=== PATIENT | male | born 1965 | race African-American/Black ===

== ENCOUNTER 2018-02-14 15:49 | Inpatient (IN) | payer OTHER ==
[2018-02-14 18:16] VITALS: BMI 27.4
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
[2018-02-14] MEDS ORDERED: chlordiazePOXIDE HCL 25 MG CAPSULE PO PRN (21:10)
[2018-02-14] MEDS ORDERED: IBUPROFEN 400 MG TABLET (FP) PO PRN (21:10)
[2018-02-14] MEDS ORDERED: MAG HYDROX/AL HYDROX/SIMETH 30 ML UNIT-DOSE CUP PO PRN (21:10)
[2018-02-14] MEDS ORDERED: MAGNESIUM HYDROX 2400MG/30ML ORAL SUSPENSION 30 ML CUP PO PRN (21:10)
[2018-02-14] MEDS ORDERED: ACETAMINOPHEN 325 MG TABLET (FP) PO PRN (21:10)
[2018-02-14] MEDS ORDERED: P-EPHED 60MG/TRIPROLIDI 2.5MG TABLET PO PRN (21:10)
[2018-02-14] MEDS ORDERED: MAGNESIUM CITRATE 300 ML BOTTLE PO PRN (21:10)
[2018-02-14] MEDS ORDERED: chlordiazePOXIDE HCL 25 MG CAPSULE PO ONE (21:10)
[2018-02-14] MEDS ORDERED: guaiFENesin/D-METHORPHAN HB 10 ML UNIT-DOSE CUPS PO PRN (21:10)
[2018-02-14] MEDS ORDERED: LOPERAMIDE HCL 2 MG CAPSULE PO PRN (21:10)
[2018-02-14] MEDS ORDERED: MENTHOL/PHENOL 1 EACH UD MM PRN (21:10)
[2018-02-14] MEDS ORDERED: MELATONIN 5 MG TABLETS PO PRN (22:00)
[2018-02-14] MEDS: THIAMINE HCL 100 MG TABLET (FP) PO SCH (22:23)
[2018-02-14] MEDS: chlordiazePOXIDE HCL 25 MG CAPSULE PO SCH (22:24)
[2018-02-15] MEDS: chlordiazePOXIDE HCL 25 MG CAPSULE PO SCH ×4 (06:06→22:40)
[2018-02-15 10:24] LABS: HEMATOCRIT 41.3 % (35.4-49); HEMOGLOBIN 13.1 GM/dL (11.7-16.9); MCHC 31.9 g/dl (32.0-35.9); MEAN CELL VOLUME 81.5 fl (80-96); MEAN PLT VOLUME 8.5 fl (7.5-11.1); PLATELET COUNT 244 K/MM3 (134-434); RBC 5.06 M/mm3 (4.00-5.60); RDW 15.4 % (11.9-15.9); WHITE BLOOD COUNT 4.2 K/mm3 (4.0-10.0)
[2018-02-15] MEDS: PRENATAL VITAMINS W/ FOLIC ACID TABLET (FP) PO SCH (10:42)
[2018-02-15] MEDS: HYDROCHLOROTHIAZIDE 12.5 MG CAPSULE (FP) PO SCH (10:42)
[2018-02-15 11:29] LABS: ALBUMIN 3.5 g/dl (3.4-5.0); ALK PHOS 98 U/L (45-117); ANION GAP 4 MMOL/L (8-16); BILIRUBIN,TOTAL 0.6 mg/dL (0.2-1.0); BLOOD UREA NITROGEN 25 mg/dL (7-18); CALCIUM 8.8 mg/dL (8.5-10.1); CHLORIDE 105 mmol/L (98-107); CO2 31 mmol/L (21-32); CREATININE 1.2 mg/dL (0.7-1.3); GLUCOSE,RANDOM 95 mg/dL (74-106); POTASSIUM 4.4 mmol/L (3.5-5.1); SGOT/AST 16 U/L (15-37); SGPT/ALT 26 U/L (12-78); SODIUM 140 mmol/L (136-145); TOT PROT 6.8 g/dl (6.4-8.2)
[2018-02-15] MEDS ORDERED: PNEUMOC 13-VAL CONJ-DIP CRM/PF 0.5 ML DISP.SYRIN IM ONE (12:00)
[2018-02-15] MEDS ORDERED: PNEUMOCOCCAL 23 VACCINE 0.5 ML VIAL IM ONE (12:00)
--- NOTE | 2018-02-15 13:01 | PN ---
[facility] CIWA - CIWA Score Nausea/Vomitin-No Nausea/No Vomiting Muscle Tremors: 4-Moderate,w/Arms Extend Anxiety: 3 Agitation: 3 Paroxysmal Sweats: 1-Minimal Palms Moist Orientation: 0-Oriented Tacttile Disturbances: 1-Very Mild Itch/Numbness Auditory Disturbances: 0-None Visual Disturbances: 0-None Headache: 0-None Present CIWA-Ar Total Score: 12 BHS Progress Note (SOAP) Subjective: tremor sweat anxiety restlessness Objective: 02/15/18 12:59 Vital Signs Temperature 97.0 F L 02/15/18 09:29 Pulse Rate 79 02/15/18 09:29 Respiratory Rate 18 02/15/18 09:29 Blood Pressure 164/98 02/15/18 09:29 O2 Sat by Pulse Oximetry (%) Laboratory Last Values WBC 4.2 K/mm3 (4.0-10.0) 02/15/18 07:00 RBC 5.06 M/mm3 (4.00-5.60) 02/15/18 07:00 Hgb 13.1 GM/dL (11.7-16.9) 02/15/18 07:00 Hct 41.3 % (35.4-49) 02/15/18 07:00 MCV 81.5 fl (80-96) 02/15/18 07:00 MCH 26.0 pg (25.7-33.7) 02/15/18 07:00 MCHC 31.9 g/dl (32.0-35.9) L 02/15/18 07:00 RDW 15.4 % (11.9-15.9) 02/15/18 07:00 Plt Count 244 K/MM3 (134-434) 02/15/18 07:00 MPV 8.5 fl (7.5-11.1) 02/15/18 07:00 Sodium 140 mmol/L (136-145) 02/15/18 07:00 Potassium 4.4 mmol/L (3.5-5.1) 02/15/18 07:00 Chloride 105 mmol/L (98-107) 02/15/18 07:00 Carbon Dioxide 31 mmol/L (21-32) 02/15/18 07:00 Anion Gap 4 MMOL/L (8-16) L 02/15/18 07:00 BUN 25 mg/dL (7-18) H 02/15/18 07:00 Creatinine 1.2 mg/dL (0.7-1.3) 02/15/18 07:00 Creat Clearance w eGFR > 60 (>60) 02/15/18 07:00 Random Glucose 95 mg/dL (74-106) 02/15/18 07:00 Calcium 8.8 mg/dL (8.5-10.1) 02/15/18 07:00 Total Bilirubin 0.6 mg/dL (0.2-1.0) 02/15/18 07:00 AST 16 U/L (15-37) 02/15/18 07:00 ALT 26 U/L (12-78) 02/15/18 07:00 Alkaline Phosphatase 98 U/L (45-117) 02/15/18 07:00 Total Protein 6.8 g/dl (6.4-8.2) 02/15/18 07:00 Albumin 3.5 g/dl (3.4-5.0) 02/15/18 07:00 lab noted Assessment: 02/15/18 13:01 withdrawal sx Plan: continue detox
--- NOTE | 2018-02-15 17:21 | EKG ---
Test Reason : Blood Pressure : / mmHG Vent. Rate : 063 BPM Atrial Rate : 063 BPM P-R Int : 124 ms QRS Dur : 092 ms QT Int : 416 ms P-R-T Axes : 065 -19 052 degrees QTc Int : 425 ms SINUS RHYTHM WITH MARKED SINUS ARRHYTHMIA MINIMAL VOLTAGE CRITERIA FOR LVH, MAY BE NORMAL VARIANT BORDERLINE ECG Confirmed by MD KEHINDE, ANKUSH ([id number]) on 02/15/2018 5:21:46 PM Referred By: Confirmed By:ANKUSH BUSBY MD
[2018-02-15] MEDS: THIAMINE HCL 100 MG TABLET (FP) PO SCH (22:40)
[2018-02-16] MEDS: chlordiazePOXIDE HCL 25 MG CAPSULE PO SCH ×3 (05:54→17:46)
[2018-02-16] MEDS: HYDROCHLOROTHIAZIDE 12.5 MG CAPSULE (FP) PO SCH (10:19)
[2018-02-16] MEDS: PRENATAL VITAMINS W/ FOLIC ACID TABLET (FP) PO SCH (10:19)
--- NOTE | 2018-02-16 12:15 | PN ---
S CIWA - CIWA Score Nausea/Vomitin-Mild Nausea/No Vomiting Muscle Tremors: 3 Anxiety: 4-Mod. Anxious/Guarded Agitation: 3 Paroxysmal Sweats: 1-Minimal Palms Moist Orientation: 0-Oriented Tacttile Disturbances: 0-None Auditory Disturbances: 0-None Visual Disturbances: 0-None Headache: 0-None Present CIWA-Ar Total Score: 12 BHS Progress Note (SOAP) Subjective: anxiety less tremor but sweat and trouble sleep at night Objective: 02/16/18 12:14 Vital Signs Temperature 97.2 F L 02/16/18 09:23 Pulse Rate 102 H 02/16/18 09:23 Respiratory Rate 18 02/16/18 09:23 Blood Pressure 137/91 02/16/18 09:23 O2 Sat by Pulse Oximetry (%) Laboratory Last Values WBC 4.2 K/mm3 (4.0-10.0) 02/15/18 07:00 RBC 5.06 M/mm3 (4.00-5.60) 02/15/18 07:00 Hgb 13.1 GM/dL (11.7-16.9) 02/15/18 07:00 Hct 41.3 % (35.4-49) 02/15/18 07:00 MCV 81.5 fl (80-96) 02/15/18 07:00 MCH 26.0 pg (25.7-33.7) 02/15/18 07:00 MCHC 31.9 g/dl (32.0-35.9) L 02/15/18 07:00 RDW 15.4 % (11.9-15.9) 02/15/18 07:00 Plt Count 244 K/MM3 (134-434) 02/15/18 07:00 MPV 8.5 fl (7.5-11.1) 02/15/18 07:00 Sodium 140 mmol/L (136-145) 02/15/18 07:00 Potassium 4.4 mmol/L (3.5-5.1) 02/15/18 07:00 Chloride 105 mmol/L (98-107) 02/15/18 07:00 Carbon Dioxide 31 mmol/L (21-32) 02/15/18 07:00 Anion Gap 4 MMOL/L (8-16) L 02/15/18 07:00 BUN 25 mg/dL (7-18) H 02/15/18 07:00 Creatinine 1.2 mg/dL (0.7-1.3) 02/15/18 07:00 Creat Clearance w eGFR > 60 (>60) 02/15/18 07:00 Random Glucose 95 mg/dL (74-106) 02/15/18 07:00 Calcium 8.8 mg/dL (8.5-10.1) 02/15/18 07:00 Total Bilirubin 0.6 mg/dL (0.2-1.0) 02/15/18 07:00 AST 16 U/L (15-37) 02/15/18 07:00 ALT 26 U/L (12-78) 02/15/18 07:00 Alkaline Phosphatase 98 U/L (45-117) 02/15/18 07:00 Total Protein 6.8 g/dl (6.4-8.2) 02/15/18 07:00 Albumin 3.5 g/dl (3.4-5.0) 02/15/18 07:00 RPR Titer Nonreactive (NONREACTIVE) 02/15/18 07:00 HIV 1&2 Antibody Screen Negative 02/15/18 07:00 HIV P24 Antigen Negative 02/15/18 07:00 lab noted Assessment: 02/16/18 12:15 withdrawal sx Plan: continue detox
[2018-02-16] MEDS: THIAMINE HCL 100 MG TABLET (FP) PO SCH (22:19)
[2018-02-16] MEDS: chlordiazePOXIDE 5 MG CAPSULE PO SCH (22:20)
[2018-02-17] MEDS: chlordiazePOXIDE 5 MG CAPSULE PO SCH ×3 (05:45→19:08)
[2018-02-17] MEDS: HYDROCHLOROTHIAZIDE 12.5 MG CAPSULE (FP) PO SCH (10:32)
[2018-02-17] MEDS: PRENATAL VITAMINS W/ FOLIC ACID TABLET (FP) PO SCH (10:32)
--- NOTE | 2018-02-17 14:41 | PN ---
BHS Progress Note (SOAP) Subjective: feeling better no tremor less sweat sleep better at night social with peers in day room and hallway Objective: 02/17/18 14:41 Vital Signs Temperature 97.5 F L 02/17/18 14:01 Pulse Rate 98 H 02/17/18 14:01 Respiratory Rate 18 02/17/18 14:01 Blood Pressure 119/93 02/17/18 14:01 O2 Sat by Pulse Oximetry (%) Laboratory Last Values WBC 4.2 K/mm3 (4.0-10.0) 02/15/18 07:00 RBC 5.06 M/mm3 (4.00-5.60) 02/15/18 07:00 Hgb 13.1 GM/dL (11.7-16.9) 02/15/18 07:00 Hct 41.3 % (35.4-49) 02/15/18 07:00 MCV 81.5 fl (80-96) 02/15/18 07:00 MCH 26.0 pg (25.7-33.7) 02/15/18 07:00 MCHC 31.9 g/dl (32.0-35.9) L 02/15/18 07:00 RDW 15.4 % (11.9-15.9) 02/15/18 07:00 Plt Count 244 K/MM3 (134-434) 02/15/18 07:00 MPV 8.5 fl (7.5-11.1) 02/15/18 07:00 Sodium 140 mmol/L (136-145) 02/15/18 07:00 Potassium 4.4 mmol/L (3.5-5.1) 02/15/18 07:00 Chloride 105 mmol/L (98-107) 02/15/18 07:00 Carbon Dioxide 31 mmol/L (21-32) 02/15/18 07:00 Anion Gap 4 MMOL/L (8-16) L 02/15/18 07:00 BUN 25 mg/dL (7-18) H 02/15/18 07:00 Creatinine 1.2 mg/dL (0.7-1.3) 02/15/18 07:00 Creat Clearance w eGFR > 60 (>60) 02/15/18 07:00 Random Glucose 95 mg/dL (74-106) 02/15/18 07:00 Calcium 8.8 mg/dL (8.5-10.1) 02/15/18 07:00 Total Bilirubin 0.6 mg/dL (0.2-1.0) 02/15/18 07:00 AST 16 U/L (15-37) 02/15/18 07:00 ALT 26 U/L (12-78) 02/15/18 07:00 Alkaline Phosphatase 98 U/L (45-117) 02/15/18 07:00 Total Protein 6.8 g/dl (6.4-8.2) 02/15/18 07:00 Albumin 3.5 g/dl (3.4-5.0) 02/15/18 07:00 RPR Titer Nonreactive (NONREACTIVE) 02/15/18 07:00 HIV 1&2 Antibody Screen Negative 02/15/18 07:00 HIV P24 Antigen Negative 02/15/18 07:00 lab noted Assessment: 02/17/18 14:41 mild withdrawal sx Plan: medically supervised detox
[2018-02-17] MEDS: chlordiazePOXIDE HCL 10 MG CAPSULE PO SCH (23:06)
[2018-02-17] MEDS: THIAMINE HCL 100 MG TABLET (FP) PO SCH (23:06)
[2018-02-18] MEDS: chlordiazePOXIDE HCL 10 MG CAPSULE PO SCH (05:24)
--- NOTE | 2018-02-18 08:54 | DS ---
[facility] Detox Discharge Summary Admission Date: 02/14/18 Discharge Date: 02/18/18 - History Present History: Alcohol Dependence, Cannabis Dependence, Cocaine Dependence - Physical Exam Results Vital Signs: Vital Signs Temperature 95.9 F L 02/18/18 06:22 Pulse Rate 80 02/18/18 06:22 Respiratory Rate 18 02/18/18 06:22 Blood Pressure 127/78 02/18/18 06:22 O2 Sat by Pulse Oximetry (%) - Treatment Hospital Course: Detox Protocol Followed, Detoxed Safely, Responded well, Discharged Condition Good, Rehab Referral Accepted - Medication Discharge Medications: Ambulatory Orders Hydrochlorothiazide [Hctz -] 12.5 mg PO DAILY 02/14/18 - Diagnosis (1) Alcohol dependence with withdrawal Current Visit: Yes Status: Chronic Qualifiers: Complication of substance-induced condition: uncomplicated Qualified Code(s ): F10.230 - Alcohol dependence with withdrawal, uncomplicated (2) Cocaine dependence Current Visit: Yes Status: Acute Qualifiers: Substance use status: uncomplicated Qualified Code(s): F14.20 - Cocaine dependence, uncomplicated (3) Marijuana dependence Current Visit: Yes Status: Chronic (4) GERD (gastroesophageal reflux disease) Current Visit: Yes Status: Chronic Qualifiers: Esophagitis presence: without esophagitis Qualified Code(s): K21.9 - Gastro -esophageal reflux disease without esophagitis (5) Glaucoma, right eye Current Visit: Yes Status: Chronic Qualifiers: Glaucoma type: unspecified Qualified Code(s): H40.9 - Unspecified glaucoma (6) Hypertension Current Visit: Yes Status: Chronic Qualifiers: Hypertension type: essential hypertension Qualified Code(s): I10 - Essential (primary) hypertension - AMA Did Patient Leave Against Medical Advice: No
[2018-02-18] MEDS: HYDROCHLOROTHIAZIDE 12.5 MG CAPSULE (FP) PO SCH (09:23)
[2018-02-18] MEDS: PRENATAL VITAMINS W/ FOLIC ACID TABLET (FP) PO SCH (09:23)
[2018-02-18 10:00] VITALS: BP 155/93; PULSE 110; TEMP 97.7
[2018-02-18 11:21] LABS: URINE APPEARANCE CLEAR; URINE BILIRUBIN NEGATIVE (<2.0 mg/dL); URINE COLOR LTYELLOW; URINE GLUCOSE (UA) NEGATIVE (NEGATIVE); URINE KETONE NEGATIVE (NEGATIVE); URINE LEUK ESTERASE NEGATIVE (NEGATIVE); URINE NITRITE NEGATIVE (NEGATIVE); URINE PROTEIN NEGATIVE (NEGATIVE); URINE UROBILINOGEN NEGATIVE mg/dL (0.2-1.0)
== END 2018-02-18 09:29 | disposition home or self-care (01) | DRG 897 ==
LOC: YASAS 15:49 → Y6N 21:00
PROC: HZ2ZZZZ Detoxification Services for Substance Abuse Treatment (ICD-10-PCS; principal; 2018-02-14)
DX: F10.230 Alcohol dependence with withdrawal, uncomplicated (principal); F14.20 Cocaine dependence, uncomplicated; F12.20 Cannabis dependence, uncomplicated; I10 Essential (primary) hypertension; K21.9 Gastro-esophageal reflux disease without esophagitis; H40.9 Unspecified glaucoma
CPT/HCPCS: 36415; 80053; 81003; 85027; 86593; 87389; 90732; 93005; 93010; G0009

== ENCOUNTER 2018-03-27 10:48 | Inpatient (IN) | payer OTHER ==
[2018-03-27 11:35] VITALS: BMI 27.8
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
[2018-03-27] MEDS ORDERED: MAGNESIUM HYDROX 2400MG/30ML ORAL SUSPENSION 30 ML CUP PO PRN (12:37)
[2018-03-27] MEDS ORDERED: MAG HYDROX/AL HYDROX/SIMETH 30 ML UNIT-DOSE CUP PO PRN (12:37)
[2018-03-27] MEDS ORDERED: chlordiazePOXIDE HCL 25 MG CAPSULE PO PRN (12:37)
[2018-03-27] MEDS ORDERED: P-EPHED 60MG/TRIPROLIDI 2.5MG TABLET PO PRN (12:37)
[2018-03-27] MEDS ORDERED: MENTHOL/PHENOL 1 EACH UD MM PRN (12:37)
[2018-03-27] MEDS ORDERED: MAGNESIUM CITRATE 300 ML BOTTLE PO PRN (12:37)
[2018-03-27] MEDS ORDERED: LOPERAMIDE HCL 2 MG CAPSULE PO PRN (12:37)
[2018-03-27] MEDS: HYDROCHLOROTHIAZIDE 12.5 MG CAPSULE (FP) PO SCH (15:16)
[2018-03-27] MEDS: chlordiazePOXIDE HCL 25 MG CAPSULE PO SCH ×2 (17:24→22:28)
[2018-03-27 17:47] LABS: URINE APPEARANCE CLEAR; URINE BILIRUBIN NEGATIVE (<2.0 mg/dL); URINE COLOR YELLOW; URINE GLUCOSE (UA) NEGATIVE (NEGATIVE); URINE KETONE NEGATIVE (NEGATIVE); URINE LEUK ESTERASE NEGATIVE (NEGATIVE); URINE NITRITE NEGATIVE (NEGATIVE); URINE PROTEIN NEGATIVE (NEGATIVE); URINE UROBILINOGEN NEGATIVE mg/dL (0.2-1.0)
[2018-03-27] MEDS: THIAMINE HCL 100 MG TABLET (FP) PO SCH (22:28)
[2018-03-28] MEDS: chlordiazePOXIDE HCL 25 MG CAPSULE PO SCH ×4 (05:21→22:19)
--- NOTE | 2018-03-28 09:04 | CONSULT ---
[facility] Psychiatric Consult - Data Date of interview: 03/28/18 Admission source: [facility] Identifying data: This is a 52 years old male, single, living with family, inemployed, with no income, with no psychiatric hospitalization history, with a long hx of alcohol and crack/cocaine addiction presents today for detox. Denies suicidal and homicidal history Substance Abuse History: Smoking history: Smoker current status UNK (states he "stopped yesterday"). Have you smoked in the past 12 months: Yes. Hx Chewing Tobacco Use: No. Initiated information on smoking cessation: Yes. 'Breaking Loose' booklet given: 03/27/18. - Substance & Tx. History. Hx Alcohol Use: Yes. Hx Substance Use: Yes. Substance Use Type: Cocaine (crack). Hx Substance Use Treatment: Yes. - Substances Abused. Alcohol. Route: Oral. Frequency: Daily. Amount used: 1/2 pint Vodka; 6 pack (24 0z). Age of first use: 18. Date of Last Use: 03/26/18. Crack. Route: Smoking. Frequency: Daily. Amount used: $75 bag. Age of first use: 22. Date of Last Use: . Marijuana/Hashish. Route: Smoking. Frequency: Daily. Amount used: $ 50 - $100. Age of first use: 11. Date of Last Use: 03/26/18 Medical History: Patient reports heart pulcation history, denies history of hopitalizations and history of taking medications Psychiatric History: Patient rep[orts history of anxiety and depression,k denies psychiatric hospitalization history, reports no meducaions taking prior to admission. Patient denies suicidal and homicidal hiustory as well. Physical/Sexual Abuse/Trauma History: Denies Additional Comment: Observation. Detox Unit Care Protocol. Mental Status Exam - Mental Status Exam Alert and Oriented to: Person Cognitive Function: Fair Patient Appearance: Unkempt Mood: Sad Affect: Flat Patient Behavior: Sedated Speech Pattern: Delayed Voice Loudness: Mildly Soft/Quiet Thought Process: Circumstantial Thought Disorder: Being Controlled Hallucinations: Denies Suicidal Ideation: Denies Homicidal Ideation: Denies Insight/Judgement: Fair Sleep: Difficulty falling asleep Appetite: Weight loss Muscle strength/Tone: Mild Hypotonicity Gait/Station: Shuffling Additional Comments: Observation. Detox Unit Care Protocol. Psychiatric Findings - Problem List ([place] 1, 2,3) (1) Drug-induced mood disorder Current Visit: Yes Status: Acute (2) Alcohol dependence with withdrawal Current Visit: Yes Status: Acute Qualifiers: Complication of substance-induced condition: uncomplicated Qualified Code(s ): F10.230 - Alcohol dependence with withdrawal, uncomplicated (3) Cocaine dependence Current Visit: Yes Status: Chronic Qualifiers: Substance use status: uncomplicated Qualified Code(s): F14.20 - Cocaine dependence, uncomplicated (4) Marijuana dependence Current Visit: Yes Status: Chronic - Initial Treatment Plan Initial Treatment Plan: Observation. Detox Unit Care Protocol.
[2018-03-28] MEDS: PRENATAL VITAMINS W/ FOLIC ACID TABLET (FP) PO SCH (10:13)
[2018-03-28] MEDS: HYDROCHLOROTHIAZIDE 12.5 MG CAPSULE (FP) PO SCH (10:13)
--- NOTE | 2018-03-28 11:28 | PN ---
S CIWA - CIWA Score Nausea/Vomitin Muscle Tremors: 4-Moderate,w/Arms Extend Anxiety: 4-Mod. Anxious/Guarded Agitation: 4-Moderately Restless Paroxysmal Sweats: 3 Orientation: 0-Oriented Tacttile Disturbances: 0-None Auditory Disturbances: 0-None Visual Disturbances: 0-None Headache: 0-None Present CIWA-Ar Total Score: 18 [facility] Progress Note (SOAP) Subjective: Constipation (hard bm yesterday), headache. Patient informed to request medication from nurse for constipation. Objective: 03/28/18 11:25 Last Vital Signs Temp Pulse Resp BP Pulse Ox 97.8 F 93 H 20 138/98 03/28/18 09:05 03/28/18 09:05 03/28/18 09:05 03/28/18 09:05 Laboratory Tests 03/27/18 15:33 Urine Color Yellow Urine Appearance Clear Urine pH 5.0 Ur Specific [place] 1.021 Urine Protein Negative Urine Glucose (UA) Negative Urine Ketones Negative Urine Blood Negative Urine Nitrite Negative Urine Bilirubin Negative Urine Urobilinogen Negative Ur Leukocyte Esterase Negative UA noted; CBC, CMP, RPR result pending Assessment: 03/28/18 11:25 Withdrawal symptoms Plan: Continue detox Encouraged PO water hydration
[2018-03-28 11:29] LABS: HEMATOCRIT 41.3 % (35.4-49); HEMOGLOBIN 13.4 GM/dL (11.7-16.9); MCH 26.4 pg (25.7-33.7); MCHC 32.4 g/dl (32.0-35.9); MEAN CELL VOLUME 81.3 fl (80-96); MEAN PLT VOLUME 8.9 fl (7.5-11.1); PLATELET COUNT 251 K/MM3 (134-434); RBC 5.08 M/mm3 (4.00-5.60); WHITE BLOOD COUNT 4.8 K/mm3 (4.0-10.0)
[2018-03-28 11:38] LABS: ALBUMIN 3.6 g/dl (3.4-5.0); ALK PHOS 104 U/L (45-117); ANION GAP 6 MMOL/L (8-16); BILIRUBIN,TOTAL 1.2 mg/dL (0.2-1); BLOOD UREA NITROGEN 18 mg/dL (7-18); CALCIUM 8.6 mg/dL (8.5-10.1); CHLORIDE 104 mmol/L (98-107); CO2 30 mmol/L (21-32); GLUCOSE,RANDOM 76 mg/dL (74-106); POTASSIUM 4.2 mmol/L (3.5-5.1); SGOT/AST 17 U/L (15-37); SGPT/ALT 32 U/L (13-61); SODIUM 140 mmol/L (136-145); TOT PROT 6.9 g/dl (6.4-8.2)
[2018-03-28] MEDS ORDERED: FLU VACCINE QUAD 60 MCG/0.5 ML (MDV 18-19) IM ONE (12:00)
[2018-03-28] MEDS ORDERED: PNEUMOC 13-VAL CONJ-DIP CRM/PF 0.5 ML DISP.SYRIN IM ONE (12:00)
--- NOTE | 2018-03-28 21:33 | EKG ---
Test Reason : Blood Pressure : / mmHG Vent. Rate : 077 BPM Atrial Rate : 077 BPM P-R Int : 122 ms QRS Dur : 114 ms QT Int : 408 ms P-R-T Axes : 057 -22 030 degrees QTc Int : 461 ms NORMAL SINUS RHYTHM WITH SINUS ARRHYTHMIA INCOMPLETE RIGHT BUNDLE BRANCH BLOCK MODERATE VOLTAGE CRITERIA FOR LVH, MAY BE NORMAL VARIANT BORDERLINE ECG WHEN COMPARED WITH ECG OF 14-FEB-2018 21:30, QRS DURATION HAS INCREASED Confirmed by MARYA ALEX MD ([id number]) on 03/28/2018 9:32:50 PM Referred By: Alda Colmenares Confirmed By:MARYA ALEX MD
[2018-03-28] MEDS: THIAMINE HCL 100 MG TABLET (FP) PO SCH (22:19)
[2018-03-29] MEDS: chlordiazePOXIDE HCL 25 MG CAPSULE PO SCH ×2 (05:40→10:08)
[2018-03-29] MEDS: HYDROCHLOROTHIAZIDE 12.5 MG CAPSULE (FP) PO SCH (10:07)
[2018-03-29] MEDS: PRENATAL VITAMINS W/ FOLIC ACID TABLET (FP) PO SCH (10:08)
--- NOTE | 2018-03-29 13:58 | PN ---
[facility] CIWA - CIWA Score Nausea/Vomitin-Mild Nausea/No Vomiting Muscle Tremors: 3 Anxiety: 3 Agitation: 3 Paroxysmal Sweats: 2 Orientation: 0-Oriented Tacttile Disturbances: 0-None Auditory Disturbances: 0-None Visual Disturbances: 0-None Headache: 1-Very Mild CIWA-Ar Total Score: 13 S Progress Note (SOAP) Subjective: Sweating, anxious, interrupted sleep Objective: 03/29/18 13:55 Last Vital Signs Temp Pulse Resp BP Pulse Ox 98.6 F 116 H 18 125/84 03/29/18 13:17 03/29/18 13:17 03/29/18 13:17 03/29/18 13:17 Laboratory Tests 03/27/18 03/28/18 03/28/18 15:33 07:00 07:00 WBC 4.8 RBC 5.08 Hgb 13.4 Hct 41.3 MCV 81.3 MCH 26.4 MCHC 32.4 RDW 16.0 H Plt Count 251 MPV 8.9 Sodium 140 Potassium 4.2 Chloride 104 Carbon Dioxide 30 Anion Gap 6 L BUN 18 Creatinine 1.0 Creat Clearance w eGFR > 60 Random Glucose 76 Calcium 8.6 Total Bilirubin 1.2 H AST 17 ALT 32 Alkaline Phosphatase 104 Total Protein 6.9 Albumin 3.6 Urine Color Yellow Urine Appearance Clear Urine pH 5.0 Ur Specific [place] 1.021 Urine Protein Negative Urine Glucose (UA) Negative Urine Ketones Negative Urine Blood Negative Urine Nitrite Negative Urine Bilirubin Negative Urine Urobilinogen Negative Ur Leukocyte Esterase Negative RPR Titer 03/28/18 07:00 WBC RBC Hgb Hct MCV MCH MCHC RDW Plt Count MPV Sodium Potassium Chloride Carbon Dioxide Anion Gap BUN Creatinine Creat Clearance w eGFR Random Glucose Calcium Total Bilirubin AST ALT Alkaline Phosphatase Total Protein Albumin Urine Color Urine Appearance Urine pH Ur Specific [place] Urine Protein Urine Glucose (UA) Urine Ketones Urine Blood Urine Nitrite Urine Bilirubin Urine Urobilinogen Ur Leukocyte Esterase RPR Titer Nonreactive Labs reviewed Assessment: 03/29/18 13:54 Withdrawal symptoms Plan: Continue detox Encouraged PO water intake for hydration
[2018-03-29] MEDS: chlordiazePOXIDE 5 MG CAPSULE PO SCH ×2 (16:57→22:24)
[2018-03-29] MEDS: ACETAMINOPHEN 325 MG TABLET (FP) PO PRN (16:57)
[2018-03-29] MEDS: THIAMINE HCL 100 MG TABLET (FP) PO SCH (22:24)
[2018-03-30] MEDS: chlordiazePOXIDE 5 MG CAPSULE PO SCH ×2 (05:13→10:08)
[2018-03-30] MEDS: ACETAMINOPHEN 325 MG TABLET (FP) PO PRN ×2 (06:16→20:06)
[2018-03-30] MEDS: HYDROCHLOROTHIAZIDE 12.5 MG CAPSULE (FP) PO SCH (10:09)
[2018-03-30] MEDS: PRENATAL VITAMINS W/ FOLIC ACID TABLET (FP) PO SCH (10:09)
--- NOTE | 2018-03-30 12:42 | PN ---
BHS Progress Note (SOAP) Subjective: Interrupted sleep, sweating Objective: 03/30/18 12:39 Last Vital Signs Temp Pulse Resp BP Pulse Ox 96.1 F L 96 H 17 127/89 03/30/18 09:29 03/30/18 09:29 03/30/18 09:29 03/30/18 09:29 Laboratory Tests 03/27/18 03/28/18 03/28/18 15:33 07:00 07:00 WBC 4.8 RBC 5.08 Hgb 13.4 Hct 41.3 MCV 81.3 MCH 26.4 MCHC 32.4 RDW 16.0 H Plt Count 251 MPV 8.9 Sodium 140 Potassium 4.2 Chloride 104 Carbon Dioxide 30 Anion Gap 6 L BUN 18 Creatinine 1.0 Creat Clearance w eGFR > 60 Random Glucose 76 Calcium 8.6 Total Bilirubin 1.2 H AST 17 ALT 32 Alkaline Phosphatase 104 Total Protein 6.9 Albumin 3.6 Urine Color Yellow Urine Appearance Clear Urine pH 5.0 Ur Specific [place] 1.021 Urine Protein Negative Urine Glucose (UA) Negative Urine Ketones Negative Urine Blood Negative Urine Nitrite Negative Urine Bilirubin Negative Urine Urobilinogen Negative Ur Leukocyte Esterase Negative RPR Titer 03/28/18 07:00 WBC RBC Hgb Hct MCV MCH MCHC RDW Plt Count MPV Sodium Potassium Chloride Carbon Dioxide Anion Gap BUN Creatinine Creat Clearance w eGFR Random Glucose Calcium Total Bilirubin AST ALT Alkaline Phosphatase Total Protein Albumin Urine Color Urine Appearance Urine pH Ur Specific [place] Urine Protein Urine Glucose (UA) Urine Ketones Urine Blood Urine Nitrite Urine Bilirubin Urine Urobilinogen Ur Leukocyte Esterase RPR Titer Nonreactive Labs reviewed Assessment: 03/30/18 12:39 Withdrawal symptoms Plan: Labs reviewed Encouraged PO water intake
[2018-03-30] MEDS: chlordiazePOXIDE HCL 10 MG CAPSULE PO SCH ×2 (17:10→22:23)
[2018-03-30] MEDS: THIAMINE HCL 100 MG TABLET (FP) PO SCH (22:23)
[2018-03-31] MEDS: chlordiazePOXIDE HCL 10 MG CAPSULE PO SCH ×2 (05:34→10:17)
[2018-03-31] MEDS: PRENATAL VITAMINS W/ FOLIC ACID TABLET (FP) PO SCH (10:17)
[2018-03-31] MEDS: HYDROCHLOROTHIAZIDE 12.5 MG CAPSULE (FP) PO SCH (10:17)
--- NOTE | 2018-03-31 12:49 | PN ---
BHS Progress Note (SOAP) Subjective: Sweating, interrupted sleep Objective: 03/31/18 12:47 Last Vital Signs Temp Pulse Resp BP Pulse Ox 97.4 F L 109 H 20 108/83 03/31/18 09:08 03/31/18 09:08 03/31/18 09:08 03/31/18 09:08 Laboratory Tests 03/27/18 03/28/18 03/28/18 15:33 07:00 07:00 WBC 4.8 RBC 5.08 Hgb 13.4 Hct 41.3 MCV 81.3 MCH 26.4 MCHC 32.4 RDW 16.0 H Plt Count 251 MPV 8.9 Sodium 140 Potassium 4.2 Chloride 104 Carbon Dioxide 30 Anion Gap 6 L BUN 18 Creatinine 1.0 Creat Clearance w eGFR > 60 Random Glucose 76 Calcium 8.6 Total Bilirubin 1.2 H AST 17 ALT 32 Alkaline Phosphatase 104 Total Protein 6.9 Albumin 3.6 Urine Color Yellow Urine Appearance Clear Urine pH 5.0 Ur Specific [place] 1.021 Urine Protein Negative Urine Glucose (UA) Negative Urine Ketones Negative Urine Blood Negative Urine Nitrite Negative Urine Bilirubin Negative Urine Urobilinogen Negative Ur Leukocyte Esterase Negative RPR Titer 03/28/18 07:00 WBC RBC Hgb Hct MCV MCH MCHC RDW Plt Count MPV Sodium Potassium Chloride Carbon Dioxide Anion Gap BUN Creatinine Creat Clearance w eGFR Random Glucose Calcium Total Bilirubin AST ALT Alkaline Phosphatase Total Protein Albumin Urine Color Urine Appearance Urine pH Ur Specific [place] Urine Protein Urine Glucose (UA) Urine Ketones Urine Blood Urine Nitrite Urine Bilirubin Urine Urobilinogen Ur Leukocyte Esterase RPR Titer Nonreactive Labs reviewed Assessment: 03/31/18 12:48 Withdrawal symptoms Plan: Continue detox Encouraged PO water intake Patient can be discharged Wednesday or Wednesday
[2018-03-31] MEDS: THIAMINE HCL 100 MG TABLET (FP) PO SCH (22:24)
[2018-03-31] MEDS: MELATONIN 5 MG TABLETS PO PRN (22:25)
[2018-03-31] MEDS: guaiFENesin/D-METHORPHAN HB 10 ML UNIT-DOSE CUPS PO PRN (22:25)
[2018-04-01] MEDS: HYDROCHLOROTHIAZIDE 12.5 MG CAPSULE (FP) PO SCH (10:10)
[2018-04-01] MEDS: PRENATAL VITAMINS W/ FOLIC ACID TABLET (FP) PO SCH (10:10)
--- NOTE | 2018-04-01 11:30 | DS ---
[facility] Detox Discharge Summary Admission Date: 03/27/18 Discharge Date: 04/01/18 - History Present History: Alcohol Dependence, Cannabis Dependence, Cocaine Dependence Pertinent Past History: Alcohol dependence Cocaine dependence Cannabis dependence GERD Glaucoma right eye HTN - Physical Exam Results Vital Signs: Vital Signs Temperature 97.1 F L 04/01/18 09:43 Pulse Rate 92 H 04/01/18 09:43 Respiratory Rate 18 04/01/18 09:43 Blood Pressure 140/92 04/01/18 09:43 O2 Sat by Pulse Oximetry (%) Pertinent Admission Physical Exam Findings: Withdrawal symptoms Laboratory Tests 03/27/18 03/28/18 03/28/18 15:33 07:00 07:00 WBC 4.8 RBC 5.08 Hgb 13.4 Hct 41.3 MCV 81.3 MCH 26.4 MCHC 32.4 RDW 16.0 H Plt Count 251 MPV 8.9 Sodium 140 Potassium 4.2 Chloride 104 Carbon Dioxide 30 Anion Gap 6 L BUN 18 Creatinine 1.0 Creat Clearance w eGFR > 60 Random Glucose 76 Calcium 8.6 Total Bilirubin 1.2 H AST 17 ALT 32 Alkaline Phosphatase 104 Total Protein 6.9 Albumin 3.6 Urine Color Yellow Urine Appearance Clear Urine pH 5.0 Ur Specific [place] 1.021 Urine Protein Negative Urine Glucose (UA) Negative Urine Ketones Negative Urine Blood Negative Urine Nitrite Negative Urine Bilirubin Negative Urine Urobilinogen Negative Ur Leukocyte Esterase Negative RPR Titer 03/28/18 07:00 WBC RBC Hgb Hct MCV MCH MCHC RDW Plt Count MPV Sodium Potassium Chloride Carbon Dioxide Anion Gap BUN Creatinine Creat Clearance w eGFR Random Glucose Calcium Total Bilirubin AST ALT Alkaline Phosphatase Total Protein Albumin Urine Color Urine Appearance Urine pH Ur Specific [place] Urine Protein Urine Glucose (UA) Urine Ketones Urine Blood Urine Nitrite Urine Bilirubin Urine Urobilinogen Ur Leukocyte Esterase RPR Titer Nonreactive Labs reviewed - Treatment Hospital Course: Detox Protocol Followed, Detoxed Safely, Responded well, Discharged Condition Good, Rehab Referral Accepted - Medication Discharge Medications: Ambulatory Orders Hydrochlorothiazide [Hctz -] 12.5 mg PO DAILY 02/14/18 - Diagnosis (1) Cocaine dependence Current Visit: Yes Status: Chronic Qualifiers: Substance use status: uncomplicated Qualified Code(s): F14.20 - Cocaine dependence, uncomplicated (2) Alcohol dependence with withdrawal Current Visit: Yes Status: Acute Qualifiers: Complication of substance-induced condition: uncomplicated Qualified Code(s ): F10.230 - Alcohol dependence with withdrawal, uncomplicated (3) GERD (gastroesophageal reflux disease) Current Visit: Yes Status: Chronic Qualifiers: Esophagitis presence: without esophagitis Qualified Code(s): K21.9 - Gastro -esophageal reflux disease without esophagitis (4) Glaucoma, right eye Current Visit: Yes Status: Chronic Qualifiers: Glaucoma type: unspecified Qualified Code(s): H40.9 - Unspecified glaucoma (5) Hypertension Current Visit: Yes Status: Chronic Qualifiers: Hypertension type: essential hypertension Qualified Code(s): I10 - Essential (primary) hypertension (6) Marijuana dependence Current Visit: Yes Status: Chronic - AMA Did Patient Leave Against Medical Advice: No (Transferred to [facility] rehab [facility])
[2018-04-01] MEDS: MELATONIN 5 MG TABLETS PO PRN (21:26)
[2018-04-01] MEDS: THIAMINE HCL 100 MG TABLET (FP) PO SCH (21:26)
[2018-04-01] MEDS: guaiFENesin/D-METHORPHAN HB 10 ML UNIT-DOSE CUPS PO PRN (21:27)
[2018-04-02] MEDS: guaiFENesin/D-METHORPHAN HB 10 ML UNIT-DOSE CUPS PO PRN ×2 (06:41→21:19)
[2018-04-02] MEDS: PRENATAL VITAMINS W/ FOLIC ACID TABLET (FP) PO SCH (10:07)
[2018-04-02] MEDS: HYDROCHLOROTHIAZIDE 12.5 MG CAPSULE (FP) PO SCH (10:07)
[2018-04-02] MEDS: THIAMINE HCL 100 MG TABLET (FP) PO SCH (21:19)
[2018-04-03] MEDS: guaiFENesin/D-METHORPHAN HB 10 ML UNIT-DOSE CUPS PO PRN ×2 (06:42→14:28)
[2018-04-03] MEDS: PRENATAL VITAMINS W/ FOLIC ACID TABLET (FP) PO SCH (09:39)
[2018-04-03] MEDS: HYDROCHLOROTHIAZIDE 12.5 MG CAPSULE (FP) PO SCH (09:39)
[2018-04-03] MEDS: THIAMINE HCL 100 MG TABLET (FP) PO SCH (21:37)
[2018-04-03] MEDS: MELATONIN 5 MG TABLETS PO PRN (21:40)
[2018-04-04] MEDS: guaiFENesin/D-METHORPHAN HB 10 ML UNIT-DOSE CUPS PO PRN ×2 (07:05→22:23)
[2018-04-04] MEDS: PRENATAL VITAMINS W/ FOLIC ACID TABLET (FP) PO SCH (10:25)
[2018-04-04] MEDS: HYDROCHLOROTHIAZIDE 12.5 MG CAPSULE (FP) PO SCH (10:25)
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
[2018-04-04] MEDS: MELATONIN 5 MG TABLETS PO PRN (21:41)
[2018-04-04] MEDS: THIAMINE HCL 100 MG TABLET (FP) PO SCH (21:41)
[2018-04-05] MEDS: guaiFENesin/D-METHORPHAN HB 10 ML UNIT-DOSE CUPS PO PRN ×2 (06:08→21:31)
[2018-04-05] MEDS: PRENATAL VITAMINS W/ FOLIC ACID TABLET (FP) PO SCH (10:22)
[2018-04-05] MEDS: HYDROCHLOROTHIAZIDE 12.5 MG CAPSULE (FP) PO SCH (10:22)
[2018-04-05] MEDS: THIAMINE HCL 100 MG TABLET (FP) PO SCH (21:30)
[2018-04-06] MEDS: guaiFENesin/D-METHORPHAN HB 10 ML UNIT-DOSE CUPS PO PRN ×2 (06:43→21:32)
[2018-04-06] MEDS: PRENATAL VITAMINS W/ FOLIC ACID TABLET (FP) PO SCH (10:01)
[2018-04-06] MEDS: HYDROCHLOROTHIAZIDE 12.5 MG CAPSULE (FP) PO SCH (10:01)
[2018-04-06] MEDS: MELATONIN 5 MG TABLETS PO PRN (21:33)
[2018-04-06] MEDS: THIAMINE HCL 100 MG TABLET (FP) PO SCH (21:33)
[2018-04-06] MEDS: ACETAMINOPHEN 325 MG TABLET (FP) PO PRN (21:33)
[2018-04-07] MEDS: guaiFENesin/D-METHORPHAN HB 10 ML UNIT-DOSE CUPS PO PRN ×2 (06:13→21:29)
[2018-04-07] MEDS: PRENATAL VITAMINS W/ FOLIC ACID TABLET (FP) PO SCH (10:29)
[2018-04-07] MEDS: HYDROCHLOROTHIAZIDE 12.5 MG CAPSULE (FP) PO SCH (10:29)
[2018-04-07] MEDS: THIAMINE HCL 100 MG TABLET (FP) PO SCH (21:28)
[2018-04-08] MEDS: guaiFENesin/D-METHORPHAN HB 10 ML UNIT-DOSE CUPS PO PRN ×2 (06:31→21:19)
[2018-04-08] MEDS: PRENATAL VITAMINS W/ FOLIC ACID TABLET (FP) PO SCH (10:24)
[2018-04-08] MEDS: HYDROCHLOROTHIAZIDE 12.5 MG CAPSULE (FP) PO SCH (10:24)
[2018-04-08] MEDS: THIAMINE HCL 100 MG TABLET (FP) PO SCH (21:18)
[2018-04-09] MEDS: guaiFENesin/D-METHORPHAN HB 10 ML UNIT-DOSE CUPS PO PRN ×2 (06:13→21:28)
[2018-04-09] MEDS: PRENATAL VITAMINS W/ FOLIC ACID TABLET (FP) PO SCH (09:42)
[2018-04-09] MEDS: HYDROCHLOROTHIAZIDE 12.5 MG CAPSULE (FP) PO SCH (09:42)
[2018-04-09] MEDS: THIAMINE HCL 100 MG TABLET (FP) PO SCH (21:29)
[2018-04-10] MEDS: guaiFENesin/D-METHORPHAN HB 10 ML UNIT-DOSE CUPS PO PRN ×2 (06:21→21:20)
[2018-04-10] MEDS: PRENATAL VITAMINS W/ FOLIC ACID TABLET (FP) PO SCH (09:44)
[2018-04-10] MEDS: HYDROCHLOROTHIAZIDE 12.5 MG CAPSULE (FP) PO SCH (09:44)
[2018-04-10] MEDS: THIAMINE HCL 100 MG TABLET (FP) PO SCH (21:20)
[2018-04-11] MEDS: guaiFENesin/D-METHORPHAN HB 10 ML UNIT-DOSE CUPS PO PRN ×2 (06:33→21:19)
[2018-04-11] MEDS: HYDROCHLOROTHIAZIDE 12.5 MG CAPSULE (FP) PO SCH (10:15)
[2018-04-11] MEDS: PRENATAL VITAMINS W/ FOLIC ACID TABLET (FP) PO SCH (10:15)
[2018-04-11] MEDS: THIAMINE HCL 100 MG TABLET (FP) PO SCH (21:20)
[2018-04-11] MEDS: IBUPROFEN 400 MG TABLET (FP) PO PRN (21:20)
[2018-04-12] MEDS: IBUPROFEN 400 MG TABLET (FP) PO PRN ×2 (06:15→21:14)
[2018-04-12] MEDS: guaiFENesin/D-METHORPHAN HB 10 ML UNIT-DOSE CUPS PO PRN ×2 (06:15→21:14)
[2018-04-12] MEDS: HYDROCHLOROTHIAZIDE 12.5 MG CAPSULE (FP) PO SCH (10:16)
[2018-04-12] MEDS: PRENATAL VITAMINS W/ FOLIC ACID TABLET (FP) PO SCH (10:16)
[2018-04-12] MEDS: THIAMINE HCL 100 MG TABLET (FP) PO SCH (21:12)
[2018-04-13] MEDS: guaiFENesin/D-METHORPHAN HB 10 ML UNIT-DOSE CUPS PO PRN ×2 (06:15→21:18)
[2018-04-13] MEDS: IBUPROFEN 400 MG TABLET (FP) PO PRN (06:16)
[2018-04-13] MEDS: HYDROCHLOROTHIAZIDE 12.5 MG CAPSULE (FP) PO SCH (10:04)
[2018-04-13] MEDS: PRENATAL VITAMINS W/ FOLIC ACID TABLET (FP) PO SCH (10:04)
[2018-04-13] MEDS: THIAMINE HCL 100 MG TABLET (FP) PO SCH (21:19)
[2018-04-14] MEDS: guaiFENesin/D-METHORPHAN HB 10 ML UNIT-DOSE CUPS PO PRN ×2 (06:16→21:18)
[2018-04-14] MEDS: IBUPROFEN 400 MG TABLET (FP) PO PRN (06:16)
[2018-04-14] MEDS: PRENATAL VITAMINS W/ FOLIC ACID TABLET (FP) PO SCH (10:11)
[2018-04-14] MEDS: HYDROCHLOROTHIAZIDE 12.5 MG CAPSULE (FP) PO SCH (10:11)
[2018-04-14] MEDS: THIAMINE HCL 100 MG TABLET (FP) PO SCH (21:18)
[2018-04-15] MEDS: guaiFENesin/D-METHORPHAN HB 10 ML UNIT-DOSE CUPS PO PRN ×2 (06:14→21:13)
[2018-04-15] MEDS: PRENATAL VITAMINS W/ FOLIC ACID TABLET (FP) PO SCH (09:47)
[2018-04-15] MEDS: HYDROCHLOROTHIAZIDE 12.5 MG CAPSULE (FP) PO SCH (09:47)
[2018-04-15] MEDS: THIAMINE HCL 100 MG TABLET (FP) PO SCH (21:12)
[2018-04-15] MEDS: IBUPROFEN 400 MG TABLET (FP) PO PRN (21:13)
[2018-04-16] MEDS: IBUPROFEN 400 MG TABLET (FP) PO PRN (06:15)
[2018-04-16] MEDS: guaiFENesin/D-METHORPHAN HB 10 ML UNIT-DOSE CUPS PO PRN ×2 (06:15→21:12)
[2018-04-16] MEDS: HYDROCHLOROTHIAZIDE 12.5 MG CAPSULE (FP) PO SCH (09:50)
[2018-04-16] MEDS: PRENATAL VITAMINS W/ FOLIC ACID TABLET (FP) PO SCH (09:50)
[2018-04-16] MEDS: THIAMINE HCL 100 MG TABLET (FP) PO SCH (21:13)
[2018-04-17] MEDS: HYDROCHLOROTHIAZIDE 12.5 MG CAPSULE (FP) PO SCH (09:31)
[2018-04-17] MEDS: PRENATAL VITAMINS W/ FOLIC ACID TABLET (FP) PO SCH (09:31)
[2018-04-17] MEDS: IBUPROFEN 400 MG TABLET (FP) PO PRN (21:16)
[2018-04-17] MEDS: THIAMINE HCL 100 MG TABLET (FP) PO SCH (21:16)
[2018-04-18] MEDS: PRENATAL VITAMINS W/ FOLIC ACID TABLET (FP) PO SCH (10:08)
[2018-04-18] MEDS: HYDROCHLOROTHIAZIDE 12.5 MG CAPSULE (FP) PO SCH (10:08)
[2018-04-18] MEDS: THIAMINE HCL 100 MG TABLET (FP) PO SCH (21:12)
[2018-04-18] MEDS: guaiFENesin/D-METHORPHAN HB 10 ML UNIT-DOSE CUPS PO PRN (21:12)
[2018-04-19] MEDS: HYDROCHLOROTHIAZIDE 12.5 MG CAPSULE (FP) PO SCH (10:05)
[2018-04-19] MEDS: PRENATAL VITAMINS W/ FOLIC ACID TABLET (FP) PO SCH (10:05)
[2018-04-19] MEDS: THIAMINE HCL 100 MG TABLET (FP) PO SCH (21:10)
[2018-04-19] MEDS: IBUPROFEN 400 MG TABLET (FP) PO PRN (21:10)
[2018-04-19] MEDS: guaiFENesin/D-METHORPHAN HB 10 ML UNIT-DOSE CUPS PO PRN (21:12)
[2018-04-20] MEDS: PRENATAL VITAMINS W/ FOLIC ACID TABLET (FP) PO SCH (09:42)
[2018-04-20] MEDS: HYDROCHLOROTHIAZIDE 12.5 MG CAPSULE (FP) PO SCH (09:42)
[2018-04-20] MEDS: IBUPROFEN 400 MG TABLET (FP) PO PRN (21:13)
[2018-04-20] MEDS: guaiFENesin/D-METHORPHAN HB 10 ML UNIT-DOSE CUPS PO PRN (21:13)
[2018-04-20] MEDS: THIAMINE HCL 100 MG TABLET (FP) PO SCH (21:14)
[2018-04-21] MEDS: PRENATAL VITAMINS W/ FOLIC ACID TABLET (FP) PO SCH (10:21)
[2018-04-21] MEDS: HYDROCHLOROTHIAZIDE 12.5 MG CAPSULE (FP) PO SCH (10:21)
[2018-04-21] MEDS: THIAMINE HCL 100 MG TABLET (FP) PO SCH (21:22)
[2018-04-21] MEDS: guaiFENesin/D-METHORPHAN HB 10 ML UNIT-DOSE CUPS PO PRN (21:22)
[2018-04-22] MEDS: HYDROCHLOROTHIAZIDE 12.5 MG CAPSULE (FP) PO SCH (09:51)
[2018-04-22] MEDS: PRENATAL VITAMINS W/ FOLIC ACID TABLET (FP) PO SCH (09:51)
[2018-04-22] MEDS: THIAMINE HCL 100 MG TABLET (FP) PO SCH (21:20)
[2018-04-22] MEDS: guaiFENesin/D-METHORPHAN HB 10 ML UNIT-DOSE CUPS PO PRN (21:20)
[2018-04-23] MEDS: HYDROCHLOROTHIAZIDE 12.5 MG CAPSULE (FP) PO SCH (09:34)
[2018-04-23] MEDS: PRENATAL VITAMINS W/ FOLIC ACID TABLET (FP) PO SCH (09:34)
[2018-04-23] MEDS: IBUPROFEN 400 MG TABLET (FP) PO PRN (21:11)
[2018-04-23] MEDS: THIAMINE HCL 100 MG TABLET (FP) PO SCH (21:12)
[2018-04-23] MEDS: guaiFENesin/D-METHORPHAN HB 10 ML UNIT-DOSE CUPS PO PRN (21:12)
[2018-04-24] MEDS: HYDROCHLOROTHIAZIDE 12.5 MG CAPSULE (FP) PO SCH (09:38)
[2018-04-24] MEDS: PRENATAL VITAMINS W/ FOLIC ACID TABLET (FP) PO SCH (09:38)
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
[2018-04-24] MEDS: guaiFENesin/D-METHORPHAN HB 10 ML UNIT-DOSE CUPS PO PRN (21:17)
[2018-04-24] MEDS: THIAMINE HCL 100 MG TABLET (FP) PO SCH (21:18)
[2018-04-25] MEDS: HYDROCHLOROTHIAZIDE 12.5 MG CAPSULE (FP) PO SCH (10:41)
[2018-04-25] MEDS: PRENATAL VITAMINS W/ FOLIC ACID TABLET (FP) PO SCH (10:41)
[2018-04-25] MEDS: THIAMINE HCL 100 MG TABLET (FP) PO SCH (21:31)
[2018-04-25] MEDS: guaiFENesin/D-METHORPHAN HB 10 ML UNIT-DOSE CUPS PO PRN (21:31)
[2018-04-26] MEDS: HYDROCHLOROTHIAZIDE 12.5 MG CAPSULE (FP) PO SCH (10:29)
[2018-04-26] MEDS: PRENATAL VITAMINS W/ FOLIC ACID TABLET (FP) PO SCH (10:29)
[2018-04-26] MEDS: guaiFENesin/D-METHORPHAN HB 10 ML UNIT-DOSE CUPS PO PRN (21:23)
[2018-04-26] MEDS: THIAMINE HCL 100 MG TABLET (FP) PO SCH (22:13)
[2018-04-27] MEDS: HYDROCHLOROTHIAZIDE 12.5 MG CAPSULE (FP) PO SCH (10:04)
[2018-04-27] MEDS: PRENATAL VITAMINS W/ FOLIC ACID TABLET (FP) PO SCH (10:04)
[2018-04-27] MEDS: guaiFENesin/D-METHORPHAN HB 10 ML UNIT-DOSE CUPS PO PRN (21:17)
[2018-04-27] MEDS: THIAMINE HCL 100 MG TABLET (FP) PO SCH (21:18)
[2018-04-28 07:07] VITALS: TEMP 98.4
[2018-04-28] MEDS: PRENATAL VITAMINS W/ FOLIC ACID TABLET (FP) PO SCH (09:52)
[2018-04-28] MEDS: HYDROCHLOROTHIAZIDE 12.5 MG CAPSULE (FP) PO SCH (09:52)
[2018-04-28] MEDS: guaiFENesin/D-METHORPHAN HB 10 ML UNIT-DOSE CUPS PO PRN (21:22)
[2018-04-28] MEDS: THIAMINE HCL 100 MG TABLET (FP) PO SCH (21:22)
[2018-04-29 07:05] VITALS: BP 128/74; PULSE 84
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
[2018-04-29] MEDS: PRENATAL VITAMINS W/ FOLIC ACID TABLET (FP) PO SCH (09:51)
[2018-04-29] MEDS: HYDROCHLOROTHIAZIDE 12.5 MG CAPSULE (FP) PO SCH (09:51)
== END 2018-04-29 10:13 | disposition home or self-care (01) | DRG 895 ==
LOC: YASAS 10:48 → Y3N 13:27 → Y5N 04-01 12:22
PROVIDERS: ATTEND Psychiatry & Neurology Psychiatry
PROC: HZ42ZZZ Group Counseling for Substance Abuse Treatment, Cognitive-Behavioral (ICD-10-PCS; principal; 2018-03-27)
PROC: HZ2ZZZZ Detoxification Services for Substance Abuse Treatment (ICD-10-PCS; 2018-03-27)
DX: F10.20 Alcohol dependence, uncomplicated (principal); F14.20 Cocaine dependence, uncomplicated; G40.509 Epileptic seizures related to external causes, not intractable, without status epilepticus; F12.20 Cannabis dependence, uncomplicated; F19.24 Other psychoactive substance dependence with psychoactive substance-induced mood disorder; I49.9 Cardiac arrhythmia, unspecified; I10 Essential (primary) hypertension; K21.9 Gastro-esophageal reflux disease without esophagitis; R73.03 Prediabetes; H40.9 Unspecified glaucoma; H54.8 Legal blindness, as defined in USA
CPT/HCPCS: 36415; 80053; 81003; 85027; 86593; 90688; 93005; 93010; G0008

== ENCOUNTER 2018-12-21 09:54 | Inpatient (IN) | payer OTHER ==
[2018-12-21 10:14] VITALS: BMI 24.9
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
[2018-12-21] MEDS ORDERED: METHOCARBAMOL 500 MG TABLET PO PRN (10:40)
[2018-12-21] MEDS ORDERED: IBUPROFEN 400 MG TABLET (FP) PO PRN (10:40)
[2018-12-21] MEDS ORDERED: MAG HYDROX/AL HYDROX/SIMETH 30 ML UNIT-DOSE CUP PO PRN (10:40)
[2018-12-21] MEDS ORDERED: ACETAMINOPHEN 325 MG TABLET (FP) PO PRN ×2 (10:40)
[2018-12-21] MEDS ORDERED: MAGNESIUM HYDROX 2400MG/30ML ORAL SUSPENSION 30 ML CUP PO PRN (10:40)
[2018-12-21] MEDS ORDERED: hydrOXYzine PAMOATE 25 MG CAPSULE (FP) PO PRN (10:40)
[2018-12-21] MEDS ORDERED: MELATONIN 5 MG TABLETS PO PRN (10:40)
[2018-12-21] MEDS ORDERED: MENTHOL/PHENOL 1 EACH UD MM PRN (10:40)
[2018-12-21] MEDS ORDERED: chlordiazePOXIDE HCL 25 MG CAPSULE PO PRN (10:40)
[2018-12-21] MEDS ORDERED: MAGNESIUM CITRATE 300 ML BOTTLE PO PRN (10:40)
[2018-12-21] MEDS ORDERED: BISMUTH SUBSALICYLATE 262 MG/15 ML BTL PO PRN (10:40)
[2018-12-21] MEDS: chlordiazePOXIDE HCL 25 MG CAPSULE PO SCH ×3 (12:15→22:33)
[2018-12-21 14:23] LABS: HEMATOCRIT 40.9 % (35.4-49); HEMOGLOBIN 13.3 GM/dL (11.7-16.9); MCHC 32.5 g/dl (32.0-35.9); MEAN CELL VOLUME 83.1 fl (80-96); MEAN PLT VOLUME 9.1 fl (7.5-11.1); PLATELET COUNT 281 K/MM3 (134-434); RBC 4.93 M/mm3 (4.00-5.60); RDW 15.3 % (11.9-15.9); WHITE BLOOD COUNT 6.8 K/mm3 (4.0-10.0)
[2018-12-21 14:30] LABS: ALBUMIN 4.1 g/dl (3.4-5.0); BILIRUBIN,TOTAL 0.8 mg/dL (0.2-1); BLOOD UREA NITROGEN 21.7 mg/dL (7-18); CALCIUM 9.3 mg/dL (8.5-10.1); CREATININE 1.4 mg/dL (0.55-1.3); POTASSIUM 3.8 mmol/L (3.5-5.1); TOT PROT 7.4 g/dl (6.4-8.2)
[2018-12-21 17:40] LABS: EPI CELLS 3.7 /HPF (0-5/HPF); HYALINE CASTS 11 /lpf (0-8); URINE APPEARANCE TURBID; URINE BACTERIA 1.4 /hpf (NEGATIVE); URINE BILIRUBIN NEGATIVE (NEGATIVE); URINE COLOR DK YELLOW; URINE GLUCOSE (UA) NEGATIVE (NEGATIVE); URINE KETONE TRACE (NEGATIVE); URINE LEUK ESTERASE NEGATIVE (NEGATIVE); URINE NITRITE NEGATIVE (NEGATIVE); URINE PROTEIN TRACE (NEGATIVE); URINE WBC 2 /hpf (0-5)
[2018-12-21 19:09] LABS: URINE RBC 6.6 /hpf (0-4)
[2018-12-21] MEDS: THIAMINE HCL 100 MG TABLET (FP) PO SCH (22:33)
[2018-12-22] MEDS: chlordiazePOXIDE HCL 25 MG CAPSULE PO SCH ×4 (05:29→22:29)
[2018-12-22] MEDS: PRENATAL VITAMINS W/ FOLIC ACID TABLET (FP) PO SCH (10:49)
--- NOTE | 2018-12-22 13:09 | PN ---
[facility] CIWA - CIWA Score Nausea/Vomitin-Mild Nausea/No Vomiting Muscle Tremors: 2 Anxiety: 2 Agitation: 3 Paroxysmal Sweats: 1-Minimal Palms Moist Orientation: 0-Oriented Tacttile Disturbances: 1-Very Mild Itch/Numbness Auditory Disturbances: 0-None Visual Disturbances: 0-None Headache: 1-Very Mild CIWA-Ar Total Score: 11 S Progress Note (SOAP) Subjective: tremor tired low energy restlessness Objective: 12/22/18 13:17 Vital Signs Temperature 97 F L 12/22/18 09:32 Pulse Rate 82 12/22/18 09:32 Respiratory Rate 18 12/22/18 09:32 Blood Pressure 150/98 12/22/18 09:32 O2 Sat by Pulse Oximetry (%) Laboratory Last Values WBC 6.8 K/mm3 (4.0-10.0) 12/21/18 10:50 RBC 4.93 M/mm3 (4.00-5.60) 12/21/18 10:50 Hgb 13.3 GM/dL (11.7-16.9) 12/21/18 10:50 Hct 40.9 % (35.4-49) 12/21/18 10:50 MCV 83.1 fl (80-96) 12/21/18 10:50 MCH 27.0 pg (25.7-33.7) 12/21/18 10:50 MCHC 32.5 g/dl (32.0-35.9) 12/21/18 10:50 RDW 15.3 % (11.9-15.9) 12/21/18 10:50 Plt Count 281 K/MM3 (134-434) 12/21/18 10:50 MPV 9.1 fl (7.5-11.1) 12/21/18 10:50 Sodium 142 mmol/L (136-145) 12/21/18 10:50 Potassium 3.8 mmol/L (3.5-5.1) 12/21/18 10:50 Chloride 109 mmol/L (98-107) H 12/21/18 10:50 Carbon Dioxide 27 mmol/L (21-32) 12/21/18 10:50 Anion Gap 6 MMOL/L (8-16) L 12/21/18 10:50 BUN 21.7 mg/dL (7-18) H 12/21/18 10:50 Creatinine 1.4 mg/dL (0.55-1.3) H 12/21/18 10:50 Est GFR (CKD-EPI)AfAm 65.09 12/21/18 10:50 Est GFR (CKD-EPI)NonAf 56.16 12/21/18 10:50 Random Glucose 104 mg/dL (74-106) 12/21/18 10:50 Calcium 9.3 mg/dL (8.5-10.1) 12/21/18 10:50 Total Bilirubin 0.8 mg/dL (0.2-1) 12/21/18 10:50 AST 23 U/L (15-37) 12/21/18 10:50 ALT 23 U/L (13-61) 12/21/18 10:50 Alkaline Phosphatase 110 U/L (45-117) 12/21/18 10:50 Total Protein 7.4 g/dl (6.4-8.2) 12/21/18 10:50 Albumin 4.1 g/dl (3.4-5.0) 12/21/18 10:50 Urine Color Dk yellow 12/21/18 13:30 Urine Appearance Turbid 12/21/18 13:30 Urine pH 5.0 (5.0-8.0) 12/21/18 13:30 Ur Specific [place] 1.038 (1.010-1.035) H 12/21/18 13:30 Urine Protein Trace (NEGATIVE) 12/21/18 13:30 Urine Glucose (UA) Negative (NEGATIVE) 12/21/18 13:30 Urine Ketones Trace (NEGATIVE) H 12/21/18 13:30 Urine Blood Trace (NEGATIVE) 12/21/18 13:30 Urine Nitrite Negative (NEGATIVE) 12/21/18 13:30 Urine Bilirubin Negative (NEGATIVE) 12/21/18 13:30 Urine Urobilinogen 1.0 mg/dL (0.2-1.0) 12/21/18 13:30 Ur Leukocyte Esterase Negative (NEGATIVE) 12/21/18 13:30 Urine WBC (Auto) 2 /hpf (0-5) 12/21/18 13:30 Urine RBC (Auto) 6.6 /hpf (0-4) 12/21/18 13:30 Urine Casts (Auto) 11 /lpf (0-8) 12/21/18 13:30 U Epithel Cells (Auto) 3.7 /HPF (0-5/HPF) 12/21/18 13:30 Urine Bacteria (Auto) 1.4 /hpf (NEGATIVE) 12/21/18 13:30 Urine Yeast (Auto) None (NEGATIVE) 12/21/18 13:30 RPR Titer Nonreactive (NONREACTIVE) 12/21/18 10:50 HIV 1&2 Antibody Screen Negative 12/21/18 10:50 HIV P24 Antigen Negative 12/21/18 10:50 lab noted Assessment: 12/22/18 13:19 alcohol withdrawal sx Plan: continue alcohol detox
[2018-12-22] MEDS: amLODIPine BESYLATE 10 MG TABLET (FP) PO SCH (15:18)
[2018-12-22] MEDS: THIAMINE HCL 100 MG TABLET (FP) PO SCH (22:29)
[2018-12-23] MEDS: chlordiazePOXIDE HCL 25 MG CAPSULE PO SCH ×4 (06:23→22:31)
[2018-12-23] MEDS: PRENATAL VITAMINS W/ FOLIC ACID TABLET (FP) PO SCH (10:36)
[2018-12-23] MEDS: amLODIPine BESYLATE 10 MG TABLET (FP) PO SCH (10:36)
[2018-12-23] MEDS: THIAMINE HCL 100 MG TABLET (FP) PO SCH (22:21)
[2018-12-24] MEDS ORDERED: chlordiazePOXIDE HCL 10 MG CAPSULE PO PRN
[2018-12-24] MEDS: chlordiazePOXIDE HCL 10 MG CAPSULE PO SCH ×4 (05:39→22:58)
[2018-12-24] MEDS: PRENATAL VITAMINS W/ FOLIC ACID TABLET (FP) PO SCH (10:57)
[2018-12-24] MEDS: amLODIPine BESYLATE 10 MG TABLET (FP) PO SCH (10:57)
--- NOTE | 2018-12-24 18:35 | PN ---
S CIWA - CIWA Score Nausea/Vomitin-No Nausea/No Vomiting Muscle Tremors: 3 Anxiety: 3 Agitation: 1-Slight > Activity Paroxysmal Sweats: No Perspiration Orientation: 2-Disoriented Date<2 days Tacttile Disturbances: 1-Very Mild Itch/Numbness Auditory Disturbances: 0-None Visual Disturbances: 0-None Headache: 0-None Present CIWA-Ar Total Score: 10 BHS Progress Note (SOAP) Subjective: Tremors, Anxious. Objective: PATIENT A & O X 2 (UNCERTAIN ABOUT CURRENT DAY / DATE). PATIENT OBSERVED AMBULATING ON UNIT UNASSISTED. IN NO ACUTE DISTRESS. 12/24/18 18:35 Vital Signs Temperature 97.3 F L 12/24/18 18:29 Pulse Rate 86 12/24/18 18:29 Respiratory Rate 18 12/24/18 18:29 Blood Pressure 108/69 12/24/18 18:29 O2 Sat by Pulse Oximetry (%) Laboratory Tests 12/21/18 12/21/18 12/21/18 10:50 10:50 10:50 WBC 6.8 RBC 4.93 Hgb 13.3 Hct 40.9 MCV 83.1 MCH 27.0 MCHC 32.5 RDW 15.3 Plt Count 281 MPV 9.1 Sodium 142 Potassium 3.8 Chloride 109 H Carbon Dioxide 27 Anion Gap 6 L BUN 21.7 H Creatinine 1.4 H Est GFR (CKD-EPI)AfAm 65.09 Est GFR (CKD-EPI)NonAf 56.16 Random Glucose 104 Calcium 9.3 Total Bilirubin 0.8 AST 23 ALT 23 Alkaline Phosphatase 110 Total Protein 7.4 Albumin 4.1 Urine Color Urine Appearance Urine pH Ur Specific [place] Urine Protein Urine Glucose (UA) Urine Ketones Urine Blood Urine Nitrite Urine Bilirubin Urine Urobilinogen Ur Leukocyte Esterase Urine WBC (Auto) Urine RBC (Auto) Urine Casts (Auto) U Epithel Cells (Auto) Urine Bacteria (Auto) Urine Yeast (Auto) RPR Titer Nonreactive HIV 1&2 Antibody Screen HIV P24 Antigen 12/21/18 12/21/18 10:50 13:30 WBC RBC Hgb Hct MCV MCH MCHC RDW Plt Count MPV Sodium Potassium Chloride Carbon Dioxide Anion Gap BUN Creatinine Est GFR (CKD-EPI)AfAm Est GFR (CKD-EPI)NonAf Random Glucose Calcium Total Bilirubin AST ALT Alkaline Phosphatase Total Protein Albumin Urine Color Dk yellow Urine Appearance Turbid Urine pH 5.0 Ur Specific [place] 1.038 H Urine Protein Trace Urine Glucose (UA) Negative Urine Ketones Trace H Urine Blood Trace Urine Nitrite Negative Urine Bilirubin Negative Urine Urobilinogen 1.0 Ur Leukocyte Esterase Negative Urine WBC (Auto) 2 Urine RBC (Auto) 6.6 Urine Casts (Auto) 11 U Epithel Cells (Auto) 3.7 Urine Bacteria (Auto) 1.4 Urine Yeast (Auto) None RPR Titer HIV 1&2 Antibody Screen Negative HIV P24 Antigen Negative LABS NOTED. Assessment: 12/24/18 18:36 WITHDRAWAL SYMPTOMS. AZOTEMIA. Plan: CONTINUE DETOX. INCREASE DAILY PO WATER INTAKE.
[2018-12-24] MEDS: THIAMINE HCL 100 MG TABLET (FP) PO SCH (22:58)
[2018-12-25] MEDS: chlordiazePOXIDE HCL 10 MG CAPSULE PO SCH ×2 (05:35→17:18)
[2018-12-25] MEDS: amLODIPine BESYLATE 10 MG TABLET (FP) PO SCH (10:58)
[2018-12-25] MEDS: PRENATAL VITAMINS W/ FOLIC ACID TABLET (FP) PO SCH (10:58)
--- NOTE | 2018-12-25 14:36 | PN ---
S CIWA - CIWA Score Nausea/Vomitin-No Nausea/No Vomiting Muscle Tremors: 2 Anxiety: 2 Agitation: 2 Paroxysmal Sweats: No Perspiration Orientation: 0-Oriented Tacttile Disturbances: 0-None Auditory Disturbances: 0-None Visual Disturbances: 0-None Headache: 0-None Present CIWA-Ar Total Score: 6 BHS Progress Note (SOAP) Subjective: feeling better today social with peers in day room encourage the patient to discuss aftercare with staff Objective: 12/25/18 14:36 Vital Signs Temperature 98.7 F 12/25/18 13:16 Pulse Rate 90 12/25/18 13:16 Respiratory Rate 18 12/25/18 13:16 Blood Pressure 130/77 12/25/18 13:16 O2 Sat by Pulse Oximetry (%) Laboratory Last Values WBC 6.8 K/mm3 (4.0-10.0) 12/21/18 10:50 RBC 4.93 M/mm3 (4.00-5.60) 12/21/18 10:50 Hgb 13.3 GM/dL (11.7-16.9) 12/21/18 10:50 Hct 40.9 % (35.4-49) 12/21/18 10:50 MCV 83.1 fl (80-96) 12/21/18 10:50 MCH 27.0 pg (25.7-33.7) 12/21/18 10:50 MCHC 32.5 g/dl (32.0-35.9) 12/21/18 10:50 RDW 15.3 % (11.9-15.9) 12/21/18 10:50 Plt Count 281 K/MM3 (134-434) 12/21/18 10:50 MPV 9.1 fl (7.5-11.1) 12/21/18 10:50 Sodium 142 mmol/L (136-145) 12/21/18 10:50 Potassium 3.8 mmol/L (3.5-5.1) 12/21/18 10:50 Chloride 109 mmol/L (98-107) H 12/21/18 10:50 Carbon Dioxide 27 mmol/L (21-32) 12/21/18 10:50 Anion Gap 6 MMOL/L (8-16) L 12/21/18 10:50 BUN 21.7 mg/dL (7-18) H 12/21/18 10:50 Creatinine 1.4 mg/dL (0.55-1.3) H 12/21/18 10:50 Est GFR (CKD-EPI)AfAm 65.09 12/21/18 10:50 Est GFR (CKD-EPI)NonAf 56.16 12/21/18 10:50 Random Glucose 104 mg/dL (74-106) 12/21/18 10:50 Calcium 9.3 mg/dL (8.5-10.1) 12/21/18 10:50 Total Bilirubin 0.8 mg/dL (0.2-1) 12/21/18 10:50 AST 23 U/L (15-37) 12/21/18 10:50 ALT 23 U/L (13-61) 12/21/18 10:50 Alkaline Phosphatase 110 U/L (45-117) 12/21/18 10:50 Total Protein 7.4 g/dl (6.4-8.2) 12/21/18 10:50 Albumin 4.1 g/dl (3.4-5.0) 12/21/18 10:50 Urine Color Dk yellow 12/21/18 13:30 Urine Appearance Turbid 12/21/18 13:30 Urine pH 5.0 (5.0-8.0) 12/21/18 13:30 Ur Specific [place] 1.038 (1.010-1.035) H 12/21/18 13:30 Urine Protein Trace (NEGATIVE) 12/21/18 13:30 Urine Glucose (UA) Negative (NEGATIVE) 12/21/18 13:30 Urine Ketones Trace (NEGATIVE) H 12/21/18 13:30 Urine Blood Trace (NEGATIVE) 12/21/18 13:30 Urine Nitrite Negative (NEGATIVE) 12/21/18 13:30 Urine Bilirubin Negative (NEGATIVE) 12/21/18 13:30 Urine Urobilinogen 1.0 mg/dL (0.2-1.0) 12/21/18 13:30 Ur Leukocyte Esterase Negative (NEGATIVE) 12/21/18 13:30 Urine WBC (Auto) 2 /hpf (0-5) 12/21/18 13:30 Urine RBC (Auto) 6.6 /hpf (0-4) 12/21/18 13:30 Urine Casts (Auto) 11 /lpf (0-8) 12/21/18 13:30 U Epithel Cells (Auto) 3.7 /HPF (0-5/HPF) 12/21/18 13:30 Urine Bacteria (Auto) 1.4 /hpf (NEGATIVE) 12/21/18 13:30 Urine Yeast (Auto) None (NEGATIVE) 12/21/18 13:30 RPR Titer Nonreactive (NONREACTIVE) 12/21/18 10:50 HIV 1&2 Antibody Screen Negative 12/21/18 10:50 HIV P24 Antigen Negative 12/21/18 10:50 lab noted Assessment: 12/25/18 14:37 mild alcohol withdrawal sx Plan: continue alcohol detox
[2018-12-25] MEDS: THIAMINE HCL 100 MG TABLET (FP) PO SCH (22:23)
[2018-12-26] MEDS ORDERED: chlordiazePOXIDE HCL 10 MG CAPSULE PO ONE (05:00)
[2018-12-26 10:02] VITALS: BP 120/81; PULSE 101; TEMP 97.1
--- NOTE | 2018-12-26 11:14 | DS ---
[facility] Detox Discharge Summary Admission Date: 12/21/18 Discharge Date: 12/26/18 - History Present History: Alcohol Dependence Additional Comments: 53 years old male admitted on 12/21/18 for acute alcohol withdrawal sx management doing well with librium detox protocol no complication throughout the detox stay alert oriented x 3 denies chest pain no shortness of breath ambulating steady gait - Physical Exam Results Vital Signs: Vital Signs Temperature 97.1 F L 12/26/18 10:01 Pulse Rate 101 H 12/26/18 10:01 Respiratory Rate 18 12/26/18 10:01 Blood Pressure 120/81 12/26/18 10:01 O2 Sat by Pulse Oximetry (%) Pertinent Admission Physical Exam Findings: alcohol withdrawal sx Laboratory Last Values WBC 6.8 K/mm3 (4.0-10.0) 12/21/18 10:50 RBC 4.93 M/mm3 (4.00-5.60) 12/21/18 10:50 Hgb 13.3 GM/dL (11.7-16.9) 12/21/18 10:50 Hct 40.9 % (35.4-49) 12/21/18 10:50 MCV 83.1 fl (80-96) 12/21/18 10:50 MCH 27.0 pg (25.7-33.7) 12/21/18 10:50 MCHC 32.5 g/dl (32.0-35.9) 12/21/18 10:50 RDW 15.3 % (11.9-15.9) 12/21/18 10:50 Plt Count 281 K/MM3 (134-434) 12/21/18 10:50 MPV 9.1 fl (7.5-11.1) 12/21/18 10:50 Sodium 142 mmol/L (136-145) 12/21/18 10:50 Potassium 3.8 mmol/L (3.5-5.1) 12/21/18 10:50 Chloride 109 mmol/L (98-107) H 12/21/18 10:50 Carbon Dioxide 27 mmol/L (21-32) 12/21/18 10:50 Anion Gap 6 MMOL/L (8-16) L 12/21/18 10:50 BUN 21.7 mg/dL (7-18) H 12/21/18 10:50 Creatinine 1.4 mg/dL (0.55-1.3) H 12/21/18 10:50 Est GFR (CKD-EPI)AfAm 65.09 12/21/18 10:50 Est GFR (CKD-EPI)NonAf 56.16 12/21/18 10:50 Random Glucose 104 mg/dL (74-106) 12/21/18 10:50 Calcium 9.3 mg/dL (8.5-10.1) 12/21/18 10:50 Total Bilirubin 0.8 mg/dL (0.2-1) 12/21/18 10:50 AST 23 U/L (15-37) 12/21/18 10:50 ALT 23 U/L (13-61) 12/21/18 10:50 Alkaline Phosphatase 110 U/L (45-117) 12/21/18 10:50 Total Protein 7.4 g/dl (6.4-8.2) 12/21/18 10:50 Albumin 4.1 g/dl (3.4-5.0) 12/21/18 10:50 Urine Color Dk yellow 12/21/18 13:30 Urine Appearance Turbid 12/21/18 13:30 Urine pH 5.0 (5.0-8.0) 12/21/18 13:30 Ur Specific [place] 1.038 (1.010-1.035) H 12/21/18 13:30 Urine Protein Trace (NEGATIVE) 12/21/18 13:30 Urine Glucose (UA) Negative (NEGATIVE) 12/21/18 13:30 Urine Ketones Trace (NEGATIVE) H 12/21/18 13:30 Urine Blood Trace (NEGATIVE) 12/21/18 13:30 Urine Nitrite Negative (NEGATIVE) 12/21/18 13:30 Urine Bilirubin Negative (NEGATIVE) 12/21/18 13:30 Urine Urobilinogen 1.0 mg/dL (0.2-1.0) 12/21/18 13:30 Ur Leukocyte Esterase Negative (NEGATIVE) 12/21/18 13:30 Urine WBC (Auto) 2 /hpf (0-5) 12/21/18 13:30 Urine RBC (Auto) 6.6 /hpf (0-4) 12/21/18 13:30 Urine Casts (Auto) 11 /lpf (0-8) 12/21/18 13:30 U Epithel Cells (Auto) 3.7 /HPF (0-5/HPF) 12/21/18 13:30 Urine Bacteria (Auto) 1.4 /hpf (NEGATIVE) 12/21/18 13:30 Urine Yeast (Auto) None (NEGATIVE) 12/21/18 13:30 RPR Titer Nonreactive (NONREACTIVE) 12/21/18 10:50 HIV 1&2 Antibody Screen Negative 12/21/18 10:50 HIV P24 Antigen Negative 12/21/18 10:50 lab noted - Treatment Hospital Course: Detox Protocol Followed, Detoxed Safely, Responded well, Discharged Condition Good, Rehab Referral Accepted Patient has Accepted a Rehab Referral to: community support approach - Medication Discharge Medications: Ambulatory Orders NK [No Known Home Medication] 12/21/18 - Diagnosis (1) Alcohol dependence with withdrawal Status: Acute Qualifiers: Complication of substance-induced condition: uncomplicated Qualified Code(s ): F10.230 - Alcohol dependence with withdrawal, uncomplicated (2) Essential hypertension Status: Chronic (3) Nicotine dependence Status: Acute Qualifiers: Nicotine product type: cigarettes Substance use status: in withdrawal Qualified Code(s): F17.213 - Nicotine dependence, cigarettes, with withdrawal (4) GERD (gastroesophageal reflux disease) Status: Chronic Qualifiers: Esophagitis presence: without esophagitis Qualified Code(s): K21.9 - Gastro -esophageal reflux disease without esophagitis (5) Glaucoma, right eye Status: Chronic Qualifiers: Glaucoma type: unspecified Qualified Code(s): H40.9 - Unspecified glaucoma - AMA Did Patient Leave Against Medical Advice: No
== END 2018-12-26 09:07 | disposition home or self-care (01) | DRG 897 ==
LOC: YASAS 09:54 → Y3N 10:27
PROVIDERS: ADMIT Surgery; ATTEND Surgery
PROC: HZ2ZZZZ Detoxification Services for Substance Abuse Treatment (ICD-10-PCS; principal; 2018-12-21)
DX: F10.230 Alcohol dependence with withdrawal, uncomplicated (principal); F14.20 Cocaine dependence, uncomplicated; F12.20 Cannabis dependence, uncomplicated; F17.213 Nicotine dependence, cigarettes, with withdrawal; I10 Essential (primary) hypertension; K21.9 Gastro-esophageal reflux disease without esophagitis; H40.9 Unspecified glaucoma; R79.89 Other specified abnormal findings of blood chemistry; R63.4 Abnormal weight loss
CPT/HCPCS: 36415; 80053; 81003; 85027; 86593; 87389

== ENCOUNTER 2019-03-20 13:59 | Inpatient (IN) | payer OTHER ==
[2019-03-20 14:19] VITALS: BMI 25.0
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
--- NOTE | 2019-03-20 16:19 | PN ---
Teaching Attending Note Name of Resident: Alfonso Rey ATTENDING PHYSICIAN STATEMENT I saw and evaluated the patient. I reviewed the resident's note and discussed the case with the resident. I agree with the resident's findings and plan as documented. SUBJECTIVE: 53 yo with alcohol and cocaine use. Pt uses alcohol when using cocaine. Uses $250-500/day of cocaine. Alcohol 1-2 pints of rum/day. pt has low CIWA score OBJECTIVE: Vital Signs - 24 hr 03/20/19 14:11 Temperature 97.5 F L Pulse Rate 106 H Respiratory 18 Rate Blood Pressure 135/77 ASSESSMENT AND PLAN: Pt will be admitted for rehab- low CIWA score
[2019-03-20] MEDS ORDERED: MAGNESIUM HYDROX 2400MG/30ML ORAL SUSPENSION 30 ML CUP PO PRN (16:28)
[2019-03-20] MEDS ORDERED: guaiFENesin 200 MG/10 ML 10 ML UNIT-DOSE CUPS PO PRN (16:28)
[2019-03-20] MEDS ORDERED: MENTHOL/PHENOL 1 EACH UD MM PRN (16:28)
[2019-03-20] MEDS ORDERED: P-EPHED 60MG/TRIPROLIDI 2.5MG TABLET PO PRN (16:28)
[2019-03-20] MEDS ORDERED: MAGNESIUM CITRATE 300 ML BOTTLE PO PRN (16:28)
[2019-03-20] MEDS ORDERED: MAG HYDROX/AL HYDROX/SIMETH 30 ML UNIT-DOSE CUP PO PRN (16:28)
[2019-03-20] MEDS ORDERED: LOPERAMIDE HCL 2 MG CAPSULE PO PRN (16:28)
[2019-03-20] MEDS: THIAMINE HCL 100 MG TABLET (FP) PO SCH (21:39)
[2019-03-21] MEDS: PRENATAL VITAMINS W/ FOLIC ACID TABLET (FP) PO SCH (10:34)
[2019-03-21] MEDS ORDERED: FLU VACCINE QUAD 60 MCG/0.5 ML (MDV 19-20) IM ONE (12:00)
[2019-03-21] MEDS ORDERED: PNEUMOCOCCAL 23 VACCINE 0.5 ML VIAL IM ONE (12:00)
[2019-03-21] MEDS ORDERED: PNEUMOC 13-VAL CONJ-DIP CRM/PF 0.5 ML DISP.SYRIN IM ONE (12:00)
[2019-03-21 12:05] LABS: HEMATOCRIT 46.4 % (35.4-49); HEMOGLOBIN 14.8 GM/dL (11.7-16.9); MCH 26.8 pg (25.7-33.7); MEAN CELL VOLUME 83.9 fl (80-96); MEAN PLT VOLUME 9.2 fl (7.5-11.1); PLATELET COUNT 276 K/MM3 (134-434); RBC 5.53 M/mm3 (4.00-5.60); RDW 15.3 % (11.9-15.9); WHITE BLOOD COUNT 5.8 K/mm3 (4.0-10.0)
[2019-03-21 12:06] LABS: ALBUMIN 3.8 g/dl (3.4-5.0); BILIRUBIN,TOTAL 0.9 mg/dL (0.2-1); CREATININE 1.3 mg/dL (0.55-1.3); POTASSIUM 4.3 mmol/L (3.5-5.1); TOT PROT 7.4 g/dl (6.4-8.2)
[2019-03-21 12:19] LABS: EPI CELLS 2.1 /HPF (0-5/HPF); HYALINE CASTS 1 /lpf (0-8); URINE APPEARANCE CLEAR; URINE BACTERIA 0.8 /hpf (NEGATIVE); URINE BILIRUBIN NEGATIVE (NEGATIVE); URINE COLOR YELLOW; URINE GLUCOSE (UA) NEGATIVE (NEGATIVE); URINE KETONE NEGATIVE (NEGATIVE); URINE LEUK ESTERASE NEGATIVE (NEGATIVE); URINE NITRITE NEGATIVE (NEGATIVE); URINE PROTEIN NEGATIVE (NEGATIVE); URINE RBC 6 /hpf (0-4); URINE UROBILINOGEN 0.2 mg/dL (0.2-1.0); URINE WBC 2 /hpf (0-5)
[2019-03-21] MEDS: THIAMINE HCL 100 MG TABLET (FP) PO SCH (21:17)
[2019-03-21] MEDS: MELATONIN 5 MG TABLETS PO PRN (21:17)
[2019-03-22] MEDS: ACETAMINOPHEN 325 MG TABLET (FP) PO PRN (06:38)
[2019-03-22] MEDS: PRENATAL VITAMINS W/ FOLIC ACID TABLET (FP) PO SCH (10:48)
[2019-03-22] MEDS: MELATONIN 5 MG TABLETS PO PRN (21:49)
[2019-03-22] MEDS: THIAMINE HCL 100 MG TABLET (FP) PO SCH (21:49)
[2019-03-23] MEDS: ACETAMINOPHEN 325 MG TABLET (FP) PO PRN (06:02)
[2019-03-23] MEDS: PRENATAL VITAMINS W/ FOLIC ACID TABLET (FP) PO SCH (10:46)
[2019-03-23] MEDS: THIAMINE HCL 100 MG TABLET (FP) PO SCH (21:40)
[2019-03-24] MEDS: PRENATAL VITAMINS W/ FOLIC ACID TABLET (FP) PO SCH (11:05)
[2019-03-24] MEDS: THIAMINE HCL 100 MG TABLET (FP) PO SCH (21:42)
[2019-03-25] MEDS: PRENATAL VITAMINS W/ FOLIC ACID TABLET (FP) PO SCH (10:21)
[2019-03-25] MEDS: THIAMINE HCL 100 MG TABLET (FP) PO SCH (21:39)
[2019-03-26] MEDS: PRENATAL VITAMINS W/ FOLIC ACID TABLET (FP) PO SCH (10:11)
[2019-03-26] MEDS: THIAMINE HCL 100 MG TABLET (FP) PO SCH (21:40)
[2019-03-27] MEDS: PRENATAL VITAMINS W/ FOLIC ACID TABLET (FP) PO SCH (10:41)
[2019-03-27] MEDS: THIAMINE HCL 100 MG TABLET (FP) PO SCH (21:21)
[2019-03-28] MEDS: IBUPROFEN 400 MG TABLET (FP) PO PRN (06:39)
[2019-03-28] MEDS: PRENATAL VITAMINS W/ FOLIC ACID TABLET (FP) PO SCH (10:39)
[2019-03-28] MEDS: THIAMINE HCL 100 MG TABLET (FP) PO SCH (22:08)
[2019-03-29] MEDS: IBUPROFEN 400 MG TABLET (FP) PO PRN (06:28)
[2019-03-29] MEDS: PRENATAL VITAMINS W/ FOLIC ACID TABLET (FP) PO SCH (10:59)
[2019-03-29] MEDS: THIAMINE HCL 100 MG TABLET (FP) PO SCH (21:31)
[2019-03-30] MEDS: PRENATAL VITAMINS W/ FOLIC ACID TABLET (FP) PO SCH (10:49)
[2019-03-30] MEDS: THIAMINE HCL 100 MG TABLET (FP) PO SCH (21:55)
[2019-03-31] MEDS: IBUPROFEN 400 MG TABLET (FP) PO PRN (06:15)
[2019-03-31] MEDS: PRENATAL VITAMINS W/ FOLIC ACID TABLET (FP) PO SCH (10:54)
[2019-03-31] MEDS: THIAMINE HCL 100 MG TABLET (FP) PO SCH (21:21)
[2019-04-01] MEDS: PRENATAL VITAMINS W/ FOLIC ACID TABLET (FP) PO SCH (10:08)
[2019-04-01] MEDS: THIAMINE HCL 100 MG TABLET (FP) PO SCH (21:52)
[2019-04-01] MEDS: MELATONIN 5 MG TABLETS PO PRN (21:52)
[2019-04-02] MEDS: PRENATAL VITAMINS W/ FOLIC ACID TABLET (FP) PO SCH (10:44)
[2019-04-02] MEDS: THIAMINE HCL 100 MG TABLET (FP) PO SCH (21:14)
[2019-04-03] MEDS: PRENATAL VITAMINS W/ FOLIC ACID TABLET (FP) PO SCH (11:05)
[2019-04-03] MEDS: THIAMINE HCL 100 MG TABLET (FP) PO SCH (21:59)
[2019-04-04] MEDS: PRENATAL VITAMINS W/ FOLIC ACID TABLET (FP) PO SCH (10:48)
[2019-04-04] MEDS: THIAMINE HCL 100 MG TABLET (FP) PO SCH (21:39)
--- NOTE | 2019-04-05 11:05 | PN ---
[facility] Progress Note Note: Nurse reports elevated BP and pt not on BP med. However, pt had been on hydrochlorothiazide 12.5 mg po daily in past admissions. Spoke with patient he verified he has a hx of HTN and was on the medication. Vital Signs (72 hours) 04/03/19 04/03/19 04/03/19 00:30 03:30 07:21 Temperature 98.2 F Pulse Rate 83 Respiratory 18 17 18 Rate Blood Pressure 140/86 04/04/19 04/04/19 04/04/19 00:30 03:30 07:13 Temperature 97.4 F L Pulse Rate 90 Respiratory 18 18 18 Rate Blood Pressure 147/87 04/05/19 04/05/19 04/05/19 00:30 03:30 07:29 Temperature 97.5 F L Pulse Rate 86 Respiratory 18 18 18 Rate Blood Pressure 159/113 H Laboratory Tests 03/21/19 03/21/19 03/21/19 08:30 08:30 08:30 WBC 5.8 RBC 5.53 Hgb 14.8 Hct 46.4 MCV 83.9 MCH 26.8 MCHC 32.0 RDW 15.3 Plt Count 276 MPV 9.2 Sodium 141 Potassium 4.3 Chloride 104 Carbon Dioxide 30 Anion Gap 8 BUN 18.0 Creatinine 1.3 Est GFR (CKD-EPI)AfAm 71.19 Est GFR (CKD-EPI)NonAf 61.43 Random Glucose 101 Calcium 9.0 Total Bilirubin 0.9 AST 24 ALT 45 Alkaline Phosphatase 119 H Total Protein 7.4 Albumin 3.8 Urine Color Urine Appearance Urine pH Ur Specific [place] Urine Protein Urine Glucose (UA) Urine Ketones Urine Blood Urine Nitrite Urine Bilirubin Urine Urobilinogen Ur Leukocyte Esterase Urine WBC (Auto) Urine RBC (Auto) Urine Casts (Auto) U Epithel Cells (Auto) Urine Bacteria (Auto) RPR Titer Nonreactive 03/21/19 08:43 WBC RBC Hgb Hct MCV MCH MCHC RDW Plt Count MPV Sodium Potassium Chloride Carbon Dioxide Anion Gap BUN Creatinine Est GFR (CKD-EPI)AfAm Est GFR (CKD-EPI)NonAf Random Glucose Calcium Total Bilirubin AST ALT Alkaline Phosphatase Total Protein Albumin Urine Color Yellow Urine Appearance Clear Urine pH 6.0 Ur Specific [place] 1.027 Urine Protein Negative Urine Glucose (UA) Negative Urine Ketones Negative Urine Blood 1+ H Urine Nitrite Negative Urine Bilirubin Negative Urine Urobilinogen 0.2 Ur Leukocyte Esterase Negative Urine WBC (Auto) 2 Urine RBC (Auto) 6 Urine Casts (Auto) 1 U Epithel Cells (Auto) 2.1 Urine Bacteria (Auto) 0.8 RPR Titer A/P Hx HTN(no current meds) Restart hydrochlorothiazide 12.5 mg po daily starting today. Follow up with primary care provider at [facility] after rehab treatment. Pt reports using this facility in the past.
[2019-04-05] MEDS: HYDROCHLOROTHIAZIDE 12.5 MG CAPSULE (FP) PO SCH (11:12)
[2019-04-05] MEDS: PRENATAL VITAMINS W/ FOLIC ACID TABLET (FP) PO SCH (11:12)
[2019-04-05] MEDS: THIAMINE HCL 100 MG TABLET (FP) PO SCH (21:50)
[2019-04-06] MEDS: PRENATAL VITAMINS W/ FOLIC ACID TABLET (FP) PO SCH (11:14)
[2019-04-06] MEDS: HYDROCHLOROTHIAZIDE 12.5 MG CAPSULE (FP) PO SCH (11:14)
[2019-04-06] MEDS: THIAMINE HCL 100 MG TABLET (FP) PO SCH (21:58)
[2019-04-07] MEDS: HYDROCHLOROTHIAZIDE 12.5 MG CAPSULE (FP) PO SCH (10:45)
[2019-04-07] MEDS: PRENATAL VITAMINS W/ FOLIC ACID TABLET (FP) PO SCH (10:45)
[2019-04-07] MEDS: THIAMINE HCL 100 MG TABLET (FP) PO SCH (21:34)
[2019-04-08] MEDS: PRENATAL VITAMINS W/ FOLIC ACID TABLET (FP) PO SCH (10:08)
[2019-04-08] MEDS: HYDROCHLOROTHIAZIDE 12.5 MG CAPSULE (FP) PO SCH (10:08)
[2019-04-08] MEDS: THIAMINE HCL 100 MG TABLET (FP) PO SCH (21:37)
[2019-04-09] MEDS: PRENATAL VITAMINS W/ FOLIC ACID TABLET (FP) PO SCH (09:41)
[2019-04-09] MEDS: HYDROCHLOROTHIAZIDE 12.5 MG CAPSULE (FP) PO SCH (09:41)
[2019-04-09] MEDS: THIAMINE HCL 100 MG TABLET (FP) PO SCH (21:39)
[2019-04-10] MEDS: HYDROCHLOROTHIAZIDE 12.5 MG CAPSULE (FP) PO SCH (10:25)
[2019-04-10] MEDS: PRENATAL VITAMINS W/ FOLIC ACID TABLET (FP) PO SCH (10:25)
[2019-04-10] MEDS: THIAMINE HCL 100 MG TABLET (FP) PO SCH (21:31)
[2019-04-11] MEDS: HYDROCHLOROTHIAZIDE 12.5 MG CAPSULE (FP) PO SCH (10:50)
[2019-04-11] MEDS: PRENATAL VITAMINS W/ FOLIC ACID TABLET (FP) PO SCH (10:50)
[2019-04-11] MEDS: THIAMINE HCL 100 MG TABLET (FP) PO SCH (21:39)
[2019-04-12] MEDS: HYDROCHLOROTHIAZIDE 12.5 MG CAPSULE (FP) PO SCH (10:42)
[2019-04-12] MEDS: PRENATAL VITAMINS W/ FOLIC ACID TABLET (FP) PO SCH (10:42)
[2019-04-12] MEDS: THIAMINE HCL 100 MG TABLET (FP) PO SCH (21:47)
[2019-04-13] MEDS: HYDROCHLOROTHIAZIDE 12.5 MG CAPSULE (FP) PO SCH (10:38)
[2019-04-13] MEDS: PRENATAL VITAMINS W/ FOLIC ACID TABLET (FP) PO SCH (10:38)
[2019-04-13] MEDS: THIAMINE HCL 100 MG TABLET (FP) PO SCH (21:44)
[2019-04-14] MEDS: HYDROCHLOROTHIAZIDE 12.5 MG CAPSULE (FP) PO SCH (11:00)
[2019-04-14] MEDS: PRENATAL VITAMINS W/ FOLIC ACID TABLET (FP) PO SCH (11:00)
[2019-04-14] MEDS: THIAMINE HCL 100 MG TABLET (FP) PO SCH (21:49)
[2019-04-15] MEDS: PRENATAL VITAMINS W/ FOLIC ACID TABLET (FP) PO SCH (10:41)
[2019-04-15] MEDS: HYDROCHLOROTHIAZIDE 12.5 MG CAPSULE (FP) PO SCH (10:41)
[2019-04-15] MEDS: THIAMINE HCL 100 MG TABLET (FP) PO SCH (21:52)
[2019-04-16] MEDS: HYDROCHLOROTHIAZIDE 12.5 MG CAPSULE (FP) PO SCH (10:55)
[2019-04-16] MEDS: PRENATAL VITAMINS W/ FOLIC ACID TABLET (FP) PO SCH (10:55)
[2019-04-16] MEDS: THIAMINE HCL 100 MG TABLET (FP) PO SCH (21:25)
[2019-04-17 07:24] VITALS: TEMP 97.9
--- NOTE | 2019-04-17 08:41 | DS ---
[facility] Rehab Discharge Summary - [facility] Rehab Discharge Summary Admission Date: 03/20/19 Discharge Date: 04/17/19 - History Present History: Alcohol dependence, Cannabis dependence, Cocaine dependence Additional Comments: Pt is a 53 y/o male with a hx of APRIL admitted to rehab and discharging today. Pt met with his counselor and has been referred to aftercare to follow up treatment. Pertinent Past History: GRED HTN Glaucoma right eye - Discharge Physical Exam Vital Signs: Vital Signs Temperature 97.9 F 04/17/19 07:23 Pulse Rate 85 04/17/19 07:23 Respiratory Rate 18 04/17/19 07:23 Blood Pressure 148/94 04/17/19 07:23 O2 Sat by Pulse Oximetry (%) Alert o x 3 nad oob ambulating with steady cardiac:s1 s2,rrr lungs:cta,yordan. abdomen:soft,+bs,nt,nd extremities/skin:no edema,full ROM,skin intact Pertinent Admission Physical Exam Findings: Laboratory Tests 03/21/19 03/21/19 03/21/19 08:30 08:30 08:30 WBC 5.8 RBC 5.53 Hgb 14.8 Hct 46.4 MCV 83.9 MCH 26.8 MCHC 32.0 RDW 15.3 Plt Count 276 MPV 9.2 Sodium 141 Potassium 4.3 Chloride 104 Carbon Dioxide 30 Anion Gap 8 BUN 18.0 Creatinine 1.3 Est GFR (CKD-EPI)AfAm 71.19 Est GFR (CKD-EPI)NonAf 61.43 Random Glucose 101 Calcium 9.0 Total Bilirubin 0.9 AST 24 ALT 45 Alkaline Phosphatase 119 H Total Protein 7.4 Albumin 3.8 Urine Color Urine Appearance Urine pH Ur Specific [place] Urine Protein Urine Glucose (UA) Urine Ketones Urine Blood Urine Nitrite Urine Bilirubin Urine Urobilinogen Ur Leukocyte Esterase Urine WBC (Auto) Urine RBC (Auto) Urine Casts (Auto) U Epithel Cells (Auto) Urine Bacteria (Auto) RPR Titer Nonreactive 03/21/19 08:43 WBC RBC Hgb Hct MCV MCH MCHC RDW Plt Count MPV Sodium Potassium Chloride Carbon Dioxide Anion Gap BUN Creatinine Est GFR (CKD-EPI)AfAm Est GFR (CKD-EPI)NonAf Random Glucose Calcium Total Bilirubin AST ALT Alkaline Phosphatase Total Protein Albumin Urine Color Yellow Urine Appearance Clear Urine pH 6.0 Ur Specific [place] 1.027 Urine Protein Negative Urine Glucose (UA) Negative Urine Ketones Negative Urine Blood 1+ H Urine Nitrite Negative Urine Bilirubin Negative Urine Urobilinogen 0.2 Ur Leukocyte Esterase Negative Urine WBC (Auto) 2 Urine RBC (Auto) 6 Urine Casts (Auto) 1 U Epithel Cells (Auto) 2.1 Urine Bacteria (Auto) 0.8 RPR Titer - Treatment Discharge Condition: Discharge condition good Hospital Course: Rehabilitated safely and responded well CD aftercare referral accepted - Medication Discharge Medications: Ambulatory Orders Hydrochlorothiazide 25 mg PO DAILY #30 tablet 04/17/19 - Medication-Assisted Treatment (MAT) Medication-Assisted Treatment (MAT): No - Discharge Instructions Diet, activity, other medical instructions: Diet:MITESH Activity: oob ad irina Other medical instructions:Follow up with primary care provider at [place], [place] for medical management within 1-2 weeks after discharge. follow up with CD aftercare referral as recommended and scheduled. - Diagnosis (1) Alcohol dependence Status: Chronic Qualifiers: Substance use status: uncomplicated Qualified Code(s): F10.20 - Alcohol dependence, uncomplicated (2) Cannabis dependence Status: Chronic (3) Cocaine dependence Status: Chronic Qualifiers: Substance use status: uncomplicated Qualified Code(s): F14.20 - Cocaine dependence, uncomplicated (4) Nicotine dependence Status: Chronic Qualifiers: Nicotine product type: cigarettes Substance use status: uncomplicated Qualified Code(s): F17.210 - Nicotine dependence, cigarettes, uncomplicated (5) GERD (gastroesophageal reflux disease) Status: Chronic Qualifiers: Esophagitis presence: esophagitis presence not specified Qualified Code(s) : K21.9 - Gastro-esophageal reflux disease without esophagitis (6) Glaucoma, right eye Status: Chronic Qualifiers: Glaucoma type: unspecified Qualified Code(s): H40.9 - Unspecified glaucoma (7) Hypertension Status: Chronic Qualifiers: Hypertension type: essential hypertension Qualified Code(s): I10 - Essential (primary) hypertension - Follow-up Referral Minutes to complete discharge: 20 - AMA Did Patient Leave Against Medical Advice: No
[2019-04-17] MEDS: PRENATAL VITAMINS W/ FOLIC ACID TABLET (FP) PO SCH (09:18)
[2019-04-17] MEDS: HYDROCHLOROTHIAZIDE 12.5 MG CAPSULE (FP) PO SCH (09:18)
[2019-04-17 09:51] VITALS: BP 123/73; PULSE 84
[2019-04-17] MEDS ORDERED: HYDROCHLOROTHIAZIDE 25 MG TABLET (FP) PO SCH (11:00)
== END 2019-04-17 10:35 | disposition home or self-care (01) | DRG 895 ==
LOC: YASAS 13:59 → Y5N 16:51
PROVIDERS: ADMIT Neuromusculoskeletal Medicine & OMM; ATTEND Allergy & Immunology
PROC: HZ42ZZZ Group Counseling for Substance Abuse Treatment, Cognitive-Behavioral (ICD-10-PCS; principal; 2019-03-20)
DX: F10.20 Alcohol dependence, uncomplicated (principal); F14.20 Cocaine dependence, uncomplicated; F12.20 Cannabis dependence, uncomplicated; F17.210 Nicotine dependence, cigarettes, uncomplicated
CPT/HCPCS: 36415; 80053; 81003; 85027; 86593; G0008; Q2036

== ENCOUNTER 2019-08-14 14:29 | Inpatient (IN) | payer OTHER ==
--- NOTE | 2019-08-14 18:03 | BHS.RME ---
Substance Use & Tx History - Substance Use History Alcohol Substance amount: 1 pint/day Frequency of use: Daily Substance route: Oral Date of Last Use: 08/14/19 ( 2 am) Cannabis Substance amount: $50-100 Frequency of use: Daily Substance route: Smoking Date of Last Use: 08/14/19 (am) Cocaine (Crack) Substance amount: $50 Frequency of use: Less than 3 times per week Substance route: Smoking Date of Last Use: 08/11/19 - Last Treatment Date of last treatment: 2018 Treatment type: Substance Use Disorder (APRIL) Where was last treatment: Rehab Physical/Psych/Mental Status - Behavior Eye Contact: Normal - Cooperativeness Cooperativeness: Cooperative - Thinking Thought Processes: Goal Directed - Physical Health Problems Is patient presently having any pain?: Yes (Knee and ankle) Does patient presently have any injuries (include location): No Does patient currently have a fever: No Is patient : No CIWA Nausea/Vomitin-Mild Nausea/No Vomiting Muscle Tremors: 3 Anxiety: 3 Agitation: 1-Slight > Activity Paroxysmal Sweats: 1-Minimal Palms Moist Orientation: 1-Uncertain about Date Tacttile Disturbances: 0-None Auditory Disturbances: 0-None Visual Disturbances: 0-None Headache: 2-Mild (Sharp = "8". Denies head injury) CIWA-Ar Total Score: 12
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
[2019-08-14] MEDS ORDERED: BISMUTH SUBSALICYLATE 524 MG/30 ML UD PO PRN (19:01)
[2019-08-14] MEDS ORDERED: MAGNESIUM HYDROX 2400MG/30ML ORAL SUSPENSION 30 ML CUP PO PRN (19:01)
[2019-08-14] MEDS ORDERED: ACETAMINOPHEN 325 MG TABLET (FP) PO PRN ×2 (19:01)
[2019-08-14] MEDS ORDERED: IBUPROFEN 400 MG TABLET (FP) PO PRN (19:01)
[2019-08-14] MEDS ORDERED: MENTHOL/PHENOL 1 EACH UD MM PRN (19:01)
[2019-08-14] MEDS ORDERED: MAGNESIUM CITRATE 300 ML BOTTLE PO PRN (19:01)
[2019-08-14] MEDS ORDERED: MAG HYDROX/AL HYDROX/SIMETH 30 ML UNIT-DOSE CUP PO PRN (19:01)
[2019-08-14] MEDS ORDERED: diazePAM 5 MG TABLET PO PRN (19:04)
[2019-08-14 19:15] VITALS: BMI 27.3
[2019-08-14] MEDS: diazePAM 5 MG TABLET PO SCH (22:40)
[2019-08-14] MEDS: THIAMINE HCL 100 MG TABLET (FP) PO SCH (22:40)
[2019-08-15] MEDS: diazePAM 5 MG TABLET PO SCH ×3 (05:30→22:04)
[2019-08-15 10:05] LABS: MCHC 32.6 g/dl (32.0-35.9); MEAN CELL VOLUME 82.6 fl (80-96); MEAN PLT VOLUME 8.4 fl (7.5-11.1); PLATELET COUNT 278 K/MM3 (134-434); RBC 4.84 M/mm3 (4.00-5.60); RDW 14.5 % (11.9-15.9); WHITE BLOOD COUNT 4.7 K/mm3 (4.0-10.0)
[2019-08-15 10:11] LABS: ALBUMIN 3.4 g/dl (3.4-5.0); BILIRUBIN,TOTAL 0.6 mg/dL (0.2-1); BLOOD UREA NITROGEN 19.5 mg/dL (7-18); CALCIUM 8.3 mg/dL (8.5-10.1); CREATININE 1.3 mg/dL (0.55-1.3); TOT PROT 6.6 g/dl (6.4-8.2)
[2019-08-15] MEDS: HYDROCHLOROTHIAZIDE 25 MG TABLET (FP) PO SCH (10:19)
[2019-08-15] MEDS: PRENATAL VITAMINS W/ FOLIC ACID TABLET (FP) PO SCH (10:19)
--- NOTE | 2019-08-15 11:24 | PN ---
S CIWA - CIWA Score Nausea/Vomitin-No Nausea/No Vomiting Muscle Tremors: 2 Anxiety: 2 Agitation: 1-Slight > Activity Paroxysmal Sweats: 2 Orientation: 0-Oriented Tacttile Disturbances: 0-None Auditory Disturbances: 0-None Visual Disturbances: 1-Very Mild Sensitivity Headache: 0-None Present CIWA-Ar Total Score: 8 S Progress Note (SOAP) Subjective: 53 years old male admitted on 08/14/19 for alcohol withdrawal sx management treating with valium detox regiment feeling better today ambulating on hallway social with peers in day room less tremor slept through the night alert no acute distress Objective: 08/15/19 11:31 Vital Signs Temperature 96.2 F L 08/15/19 08:34 Pulse Rate 113 H 08/15/19 08:34 Respiratory Rate 16 08/15/19 08:34 Blood Pressure 131/92 08/15/19 08:34 O2 Sat by Pulse Oximetry (%) Laboratory Last Values WBC 4.7 K/mm3 (4.0-10.0) 08/15/19 07:45 RBC 4.84 M/mm3 (4.00-5.60) 08/15/19 07:45 Hgb 13.0 GM/dL (11.7-16.9) 08/15/19 07:45 Hct 40.0 % (35.4-49) 08/15/19 07:45 MCV 82.6 fl (80-96) 08/15/19 07:45 MCH 27.0 pg (25.7-33.7) 08/15/19 07:45 MCHC 32.6 g/dl (32.0-35.9) 08/15/19 07:45 RDW 14.5 % (11.9-15.9) 08/15/19 07:45 Plt Count 278 K/MM3 (134-434) 08/15/19 07:45 MPV 8.4 fl (7.5-11.1) 08/15/19 07:45 Sodium 142 mmol/L (136-145) 08/15/19 07:45 Potassium 4.0 mmol/L (3.5-5.1) 08/15/19 07:45 Chloride 108 mmol/L (98-107) H 08/15/19 07:45 Carbon Dioxide 29 mmol/L (21-32) 08/15/19 07:45 Anion Gap 5 MMOL/L (8-16) L 08/15/19 07:45 BUN 19.5 mg/dL (7-18) H 08/15/19 07:45 Creatinine 1.3 mg/dL (0.55-1.3) 08/15/19 07:45 Est GFR (CKD-EPI)AfAm 71.19 08/15/19 07:45 Est GFR (CKD-EPI)NonAf 61.43 08/15/19 07:45 Random Glucose 94 mg/dL (74-106) 08/15/19 07:45 Calcium 8.3 mg/dL (8.5-10.1) L 08/15/19 07:45 Total Bilirubin 0.6 mg/dL (0.2-1) 08/15/19 07:45 AST 15 U/L (15-37) 08/15/19 07:45 ALT 30 U/L (13-61) 08/15/19 07:45 Alkaline Phosphatase 107 U/L (45-117) 08/15/19 07:45 Total Protein 6.6 g/dl (6.4-8.2) 08/15/19 07:45 Albumin 3.4 g/dl (3.4-5.0) 08/15/19 07:45 RPR Titer Nonreactive (NONREACTIVE) 08/15/19 07:45 lab noted Assessment: 08/15/19 11:31 alcohol withdrawal Plan: valium regiment extending valium regiment from 5 mg po tid jeni to 5 mg bid and end with 5 mg po once
[2019-08-15] MEDS: THIAMINE HCL 100 MG TABLET (FP) PO SCH (22:04)
[2019-08-16] MEDS: diazePAM 5 MG TABLET PO SCH ×2 (05:35→10:11)
[2019-08-16] MEDS: PRENATAL VITAMINS W/ FOLIC ACID TABLET (FP) PO SCH (10:11)
[2019-08-16] MEDS: HYDROCHLOROTHIAZIDE 25 MG TABLET (FP) PO SCH (10:12)
--- NOTE | 2019-08-16 12:02 | PN ---
S CIWA - CIWA Score Nausea/Vomitin-No Nausea/No Vomiting Muscle Tremors: 1-None Visible, but [place] Anxiety: 2 Agitation: 0-Normal Activity Paroxysmal Sweats: 2 Orientation: 0-Oriented Tacttile Disturbances: 0-None Auditory Disturbances: 0-None Visual Disturbances: 0-None Headache: 0-None Present CIWA-Ar Total Score: 5 BHS Progress Note (SOAP) Subjective: 53 years old male admitted on 08/14/19 for alcohol withdrawal sx treating wit valium detox regiment feeling ok today less anxious sleep better at night calm and cooperative discharge tomorrow 08/17/19 to [facility] Objective: 08/16/19 12:04 Vital Signs Temperature 97.9 F 08/16/19 08:30 Pulse Rate 105 H 08/16/19 08:30 Respiratory Rate 20 08/16/19 08:30 Blood Pressure 134/84 08/16/19 08:30 O2 Sat by Pulse Oximetry (%) Laboratory Last Values WBC 4.7 K/mm3 (4.0-10.0) 08/15/19 07:45 RBC 4.84 M/mm3 (4.00-5.60) 08/15/19 07:45 Hgb 13.0 GM/dL (11.7-16.9) 08/15/19 07:45 Hct 40.0 % (35.4-49) 08/15/19 07:45 MCV 82.6 fl (80-96) 08/15/19 07:45 MCH 27.0 pg (25.7-33.7) 08/15/19 07:45 MCHC 32.6 g/dl (32.0-35.9) 08/15/19 07:45 RDW 14.5 % (11.9-15.9) 08/15/19 07:45 Plt Count 278 K/MM3 (134-434) 08/15/19 07:45 MPV 8.4 fl (7.5-11.1) 08/15/19 07:45 Sodium 142 mmol/L (136-145) 08/15/19 07:45 Potassium 4.0 mmol/L (3.5-5.1) 08/15/19 07:45 Chloride 108 mmol/L (98-107) H 08/15/19 07:45 Carbon Dioxide 29 mmol/L (21-32) 08/15/19 07:45 Anion Gap 5 MMOL/L (8-16) L 08/15/19 07:45 BUN 19.5 mg/dL (7-18) H 08/15/19 07:45 Creatinine 1.3 mg/dL (0.55-1.3) 08/15/19 07:45 Est GFR (CKD-EPI)AfAm 71.19 08/15/19 07:45 Est GFR (CKD-EPI)NonAf 61.43 08/15/19 07:45 Random Glucose 94 mg/dL (74-106) 08/15/19 07:45 Calcium 8.3 mg/dL (8.5-10.1) L 08/15/19 07:45 Total Bilirubin 0.6 mg/dL (0.2-1) 08/15/19 07:45 AST 15 U/L (15-37) 08/15/19 07:45 ALT 30 U/L (13-61) 08/15/19 07:45 Alkaline Phosphatase 107 U/L (45-117) 08/15/19 07:45 Total Protein 6.6 g/dl (6.4-8.2) 08/15/19 07:45 Albumin 3.4 g/dl (3.4-5.0) 08/15/19 07:45 RPR Titer Nonreactive (NONREACTIVE) 08/15/19 07:45 lab noted bp subsided since hctz resumed Assessment: 08/16/19 12:05 alcohol withdrawal Plan: valium regiment
[2019-08-16] MEDS: THIAMINE HCL 100 MG TABLET (FP) PO SCH (22:17)
[2019-08-17] MEDS ORDERED: diazePAM 5 MG TABLET PO ONE (05:00)
[2019-08-17 09:14] VITALS: BP 131/86; PULSE 70; TEMP 96.8
[2019-08-17] MEDS: HYDROCHLOROTHIAZIDE 25 MG TABLET (FP) PO SCH (09:24)
[2019-08-17] MEDS: PRENATAL VITAMINS W/ FOLIC ACID TABLET (FP) PO SCH (09:24)
--- NOTE | 2019-08-17 13:09 | DS ---
[facility] Detox Discharge Summary Admission Date: 08/14/19 Discharge Date: 08/17/19 - History Present History: Alcohol Dependence Additional Comments: 53 years old male admitted on 08/14/19 for alcohol withdrawal sx management treated with valium detox regiment Mr Dee has completed the valium regiment and is tolerated well alert oriented x 3 respiratory clear lung bilaterally on auscultation abdomen soft no rebound tenderness skin warm and dry Pertinent Past History: time for discharge 47 minutes [facility] aftercare facility rejects the patient due to that the patient is not on glaucoma medication with the diagnosis of glaucoma [facility] requests medical clearance letter for glaucoma without treatment above documentation as per meeting with the counselor patient agrees to return to [facility] admission tomorrow - Physical Exam Results Vital Signs: Vital Signs Temperature 96.8 F L 08/17/19 08:40 Pulse Rate 70 08/17/19 08:40 Respiratory Rate 20 08/17/19 08:40 Blood Pressure 131/86 08/17/19 08:40 O2 Sat by Pulse Oximetry (%) Pertinent Admission Physical Exam Findings: alcohol withdrawal Laboratory Last Values WBC 4.7 K/mm3 (4.0-10.0) 08/15/19 07:45 RBC 4.84 M/mm3 (4.00-5.60) 08/15/19 07:45 Hgb 13.0 GM/dL (11.7-16.9) 08/15/19 07:45 Hct 40.0 % (35.4-49) 08/15/19 07:45 MCV 82.6 fl (80-96) 08/15/19 07:45 MCH 27.0 pg (25.7-33.7) 08/15/19 07:45 MCHC 32.6 g/dl (32.0-35.9) 08/15/19 07:45 RDW 14.5 % (11.9-15.9) 08/15/19 07:45 Plt Count 278 K/MM3 (134-434) 08/15/19 07:45 MPV 8.4 fl (7.5-11.1) 08/15/19 07:45 Sodium 142 mmol/L (136-145) 08/15/19 07:45 Potassium 4.0 mmol/L (3.5-5.1) 08/15/19 07:45 Chloride 108 mmol/L (98-107) H 08/15/19 07:45 Carbon Dioxide 29 mmol/L (21-32) 08/15/19 07:45 Anion Gap 5 MMOL/L (8-16) L 08/15/19 07:45 BUN 19.5 mg/dL (7-18) H 08/15/19 07:45 Creatinine 1.3 mg/dL (0.55-1.3) 08/15/19 07:45 Est GFR (CKD-EPI)AfAm 71.19 08/15/19 07:45 Est GFR (CKD-EPI)NonAf 61.43 08/15/19 07:45 Random Glucose 94 mg/dL (74-106) 08/15/19 07:45 Calcium 8.3 mg/dL (8.5-10.1) L 08/15/19 07:45 Total Bilirubin 0.6 mg/dL (0.2-1) 08/15/19 07:45 AST 15 U/L (15-37) 08/15/19 07:45 ALT 30 U/L (13-61) 08/15/19 07:45 Alkaline Phosphatase 107 U/L (45-117) 08/15/19 07:45 Total Protein 6.6 g/dl (6.4-8.2) 08/15/19 07:45 Albumin 3.4 g/dl (3.4-5.0) 08/15/19 07:45 RPR Titer Nonreactive (NONREACTIVE) 08/15/19 07:45 T.pallidum Ab Interpret Cancelled 08/15/19 07:45 Vital Signs Temperature 96.8 F L 08/17/19 08:40 Pulse Rate 70 08/17/19 08:40 Respiratory Rate 20 08/17/19 08:40 Blood Pressure 131/86 08/17/19 08:40 O2 Sat by Pulse Oximetry (%) lab noted - Treatment Hospital Course: Detox Protocol Followed, Detoxed Safely, Responded well, Discharged Condition Good, Rehab Referral Accepted Patient has Accepted a Re[facility] Referral to: [facility] - Medication Discharge Medications: Ambulatory Orders Hydrochlorothiazide 25 mg PO DAILY #30 tablet 04/17/19 - Diagnosis (1) GERD (gastroesophageal reflux disease) Current Visit: Yes Status: Chronic Qualifiers: Esophagitis presence: esophagitis presence not specified Qualified Code(s): K21.9 - Gastro-esophageal reflux disease without esophagitis (2) Hypertension Current Visit: Yes Status: Chronic Qualifiers: Hypertension type: essential hypertension Qualified Code(s): I10 - Essential (primary) hypertension (3) Nicotine dependence Current Visit: Yes Status: Acute Qualifiers: Nicotine product type: cigarettes Substance use status: in withdrawal Reinaldo lified Code(s): F17.213 - Nicotine dependence, cigarettes, with withdrawal (4) Alcohol dependence with withdrawal Current Visit: Yes Status: Acute Qualifiers: Complication of substance-induced condition: uncomplicated Qualified Code(s): F10.230 - Alcohol dependence with withdrawal, uncomplicated - AMA Did Patient Leave Against Medical Advice: No CIWA Score - CIWA Score Nausea/Vomitin-No Nausea/No Vomiting Muscle Tremors: 1-None Visible, but [place] Anxiety: 1-Mildly Anxious Agitation: 0-Normal Activity Paroxysmal Sweats: 1-Minimal Palms Moist Orientation: 0-Oriented Tacttile Disturbances: 0-None Auditory Disturbances: 0-None Visual Disturbances: 0-None Headache: 0-None Present CIWA-Ar Total Score: 3
== END 2019-08-17 11:17 | disposition home or self-care (01) | DRG 897 ==
LOC: YASAS 14:29 → Y3N 18:54
PROVIDERS: ADMIT Allergy & Immunology; ATTEND Allergy & Immunology
PROC: HZ2ZZZZ Detoxification Services for Substance Abuse Treatment (ICD-10-PCS; principal; 2019-08-14)
DX: F10.230 Alcohol dependence with withdrawal, uncomplicated (principal); F14.10 Cocaine abuse, uncomplicated; F12.10 Cannabis abuse, uncomplicated; F17.213 Nicotine dependence, cigarettes, with withdrawal; I10 Essential (primary) hypertension; K21.9 Gastro-esophageal reflux disease without esophagitis; Z87.828 Personal history of other (healed) physical injury and trauma
CPT/HCPCS: 36415; 80053; 85027; 86593

== ENCOUNTER 2019-11-10 10:54 | Inpatient (IN) | payer OTHER ==
[2019-11-10 12:38] VITALS: BMI 26.9
[2019-11-10] MEDS ORDERED: MAGNESIUM HYDROX 2400MG/30ML ORAL SUSPENSION 30 ML CUP PO PRN (13:02)
[2019-11-10] MEDS ORDERED: METHOCARBAMOL 500 MG TABLET PO PRN (13:02)
[2019-11-10] MEDS ORDERED: MAGNESIUM CITRATE 300 ML BOTTLE PO PRN (13:02)
[2019-11-10] MEDS ORDERED: MAG HYDROX/AL HYDROX/SIMETH 30 ML UNIT-DOSE CUP PO PRN (13:02)
[2019-11-10] MEDS ORDERED: NICOTINE POLACRILEX 2 MG GUM BUC PRN (13:02)
[2019-11-10] MEDS ORDERED: BISMUTH SUBSALICYLATE 524 MG/30 ML UD PO PRN (13:02)
[2019-11-10] MEDS ORDERED: ACETAMINOPHEN 325 MG TABLET (FP) PO PRN ×2 (13:02)
[2019-11-10] MEDS ORDERED: MENTHOL/PHENOL 1 EACH UD MM PRN (13:02)
[2019-11-10] MEDS ORDERED: IBUPROFEN 400 MG TABLET (FP) PO PRN (13:02)
[2019-11-10] MEDS ORDERED: chlordiazePOXIDE HCL 25 MG CAPSULE PO PRN (13:02)
[2019-11-10] MEDS ORDERED: ONDANSETRON *ODT* 4 MG TABLET SL ONE (13:30)
[2019-11-10] MEDS: hydrOXYzine PAMOATE 25 MG CAPSULE (FP) PO SCH ×3 (13:32→22:12)
[2019-11-10] MEDS: NICOTINE 7 MG/24 HOURS TOPICAL PATCH TD SCH (13:35)
[2019-11-10] MEDS: PRENATAL VITAMINS W/ FOLIC ACID TABLET (FP) PO SCH (13:35)
[2019-11-10 16:50] LABS: HEMATOCRIT 41.6 % (35.4-49); HEMOGLOBIN 13.4 GM/dL (11.7-16.9); MCHC 32.2 g/dl (32.0-35.9); MEAN CELL VOLUME 83.8 fl (80-96); MEAN PLT VOLUME 9.2 fl (7.5-11.1); PLATELET COUNT 246 K/MM3 (134-434); RBC 4.97 M/mm3 (4.00-5.60); RDW 15.4 % (11.9-15.9); WHITE BLOOD COUNT 6.8 K/mm3 (4.0-10.0)
[2019-11-10 17:01] LABS: ALBUMIN 3.8 g/dl (3.4-5.0); BLOOD UREA NITROGEN 21.4 mg/dL (7-18); CALCIUM 8.8 mg/dL (8.5-10.1); CREATININE 1.3 mg/dL (0.55-1.3); POTASSIUM 3.9 mmol/L (3.5-5.1); TOT PROT 7.2 g/dl (6.4-8.2)
[2019-11-10 17:48] LABS: HIV INTERPRETATION NEGATIVE (NEGATIVE)
[2019-11-10] MEDS: chlordiazePOXIDE HCL 25 MG CAPSULE PO SCH ×2 (17:52→22:13)
[2019-11-10] MEDS: MELATONIN 5 MG TABLETS PO SCH (22:12)
[2019-11-10] MEDS: THIAMINE HCL 100 MG TABLET (FP) PO SCH (22:12)
[2019-11-11] MEDS: hydrOXYzine PAMOATE 25 MG CAPSULE (FP) PO SCH ×5 (05:25→22:22)
[2019-11-11] MEDS: chlordiazePOXIDE HCL 25 MG CAPSULE PO SCH ×4 (05:25→22:23)
[2019-11-11] MEDS: PRENATAL VITAMINS W/ FOLIC ACID TABLET (FP) PO SCH (10:11)
[2019-11-11] MEDS: NICOTINE 7 MG/24 HOURS TOPICAL PATCH TD SCH (10:12)
[2019-11-11] MEDS: THIAMINE HCL 100 MG TABLET (FP) PO SCH (22:23)
[2019-11-11] MEDS: MELATONIN 5 MG TABLETS PO SCH (22:23)
[2019-11-12] MEDS: hydrOXYzine PAMOATE 25 MG CAPSULE (FP) PO SCH ×5 (05:32→22:22)
[2019-11-12] MEDS: chlordiazePOXIDE HCL 25 MG CAPSULE PO SCH ×4 (05:32→22:22)
[2019-11-12] MEDS: NICOTINE 7 MG/24 HOURS TOPICAL PATCH TD SCH (10:20)
[2019-11-12] MEDS: PRENATAL VITAMINS W/ FOLIC ACID TABLET (FP) PO SCH (10:20)
[2019-11-12] MEDS: THIAMINE HCL 100 MG TABLET (FP) PO SCH (22:22)
[2019-11-12] MEDS: MELATONIN 5 MG TABLETS PO SCH (22:22)
[2019-11-13] MEDS ORDERED: chlordiazePOXIDE HCL 10 MG CAPSULE PO PRN
[2019-11-13] MEDS: hydrOXYzine PAMOATE 25 MG CAPSULE (FP) PO SCH ×5 (05:18→22:05)
[2019-11-13] MEDS: chlordiazePOXIDE HCL 10 MG CAPSULE PO SCH ×4 (05:18→22:05)
[2019-11-13] MEDS: PRENATAL VITAMINS W/ FOLIC ACID TABLET (FP) PO SCH (10:03)
[2019-11-13] MEDS: NICOTINE 7 MG/24 HOURS TOPICAL PATCH TD SCH (10:04)
[2019-11-13] MEDS: THIAMINE HCL 100 MG TABLET (FP) PO SCH (22:05)
[2019-11-13] MEDS: MELATONIN 5 MG TABLETS PO SCH (22:05)
[2019-11-14] MEDS: hydrOXYzine PAMOATE 25 MG CAPSULE (FP) PO SCH ×5 (05:53→21:26)
[2019-11-14] MEDS: chlordiazePOXIDE HCL 10 MG CAPSULE PO SCH ×2 (05:53→17:19)
[2019-11-14] MEDS: NICOTINE 7 MG/24 HOURS TOPICAL PATCH TD SCH (10:41)
[2019-11-14] MEDS: HYDROCHLOROTHIAZIDE 25 MG TABLET (FP) PO SCH (10:41)
[2019-11-14] MEDS: PRENATAL VITAMINS W/ FOLIC ACID TABLET (FP) PO SCH (10:43)
[2019-11-14] MEDS: MELATONIN 5 MG TABLETS PO SCH (21:26)
[2019-11-14] MEDS: THIAMINE HCL 100 MG TABLET (FP) PO SCH (21:26)
[2019-11-15] MEDS ORDERED: chlordiazePOXIDE HCL 10 MG CAPSULE PO ONE (05:00)
[2019-11-15] MEDS: hydrOXYzine PAMOATE 25 MG CAPSULE (FP) PO SCH ×2 (05:28→09:07)
[2019-11-15] MEDS: HYDROCHLOROTHIAZIDE 25 MG TABLET (FP) PO SCH (09:07)
[2019-11-15] MEDS: NICOTINE 7 MG/24 HOURS TOPICAL PATCH TD SCH (09:07)
[2019-11-15] MEDS: PRENATAL VITAMINS W/ FOLIC ACID TABLET (FP) PO SCH (09:07)
[2019-11-15 09:21] VITALS: BP 92/64; PULSE 119; TEMP 97.3
== END 2019-11-15 09:55 | disposition other institution (70) | DRG 897 ==
LOC: YASAS 10:54 → Y3N 12:46
PROVIDERS: ADMIT Allergy & Immunology; ATTEND Allergy & Immunology
PROC: HZ2ZZZZ Detoxification Services for Substance Abuse Treatment (ICD-10-PCS; principal; 2019-11-10)
DX: F10.230 Alcohol dependence with withdrawal, uncomplicated (principal); F14.20 Cocaine dependence, uncomplicated; F12.20 Cannabis dependence, uncomplicated; F17.213 Nicotine dependence, cigarettes, with withdrawal; I10 Essential (primary) hypertension; K21.9 Gastro-esophageal reflux disease without esophagitis; D64.9 Anemia, unspecified; R63.4 Abnormal weight loss; Z68.27 Body mass index [BMI] 27.0-27.9, adult; Z98.890 Other specified postprocedural states
CPT/HCPCS: 36415; 80053; 85027; 86780; 87389; U0003

== ENCOUNTER 2020-03-01 13:01 | Inpatient (IN) | payer OTHER ==
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
[2020-03-01] MEDS ORDERED: ONDANSETRON *ODT* 4 MG TABLET SL PRN (15:12)
[2020-03-01] MEDS ORDERED: ACETAMINOPHEN 325 MG TABLET (FP) PO PRN ×2 (15:12)
[2020-03-01] MEDS ORDERED: MAG HYDROX/AL HYDROX/SIMETH 30 ML UNIT-DOSE CUP PO PRN (15:12)
[2020-03-01] MEDS ORDERED: chlordiazePOXIDE HCL 25 MG CAPSULE PO PRN (15:12)
[2020-03-01] MEDS ORDERED: MENTHOL/PHENOL 1 EACH UD MM PRN (15:12)
[2020-03-01] MEDS ORDERED: MAGNESIUM CITRATE 300 ML BOTTLE PO PRN (15:12)
[2020-03-01] MEDS ORDERED: MAGNESIUM HYDROX 2400MG/30ML ORAL SUSPENSION 30 ML CUP PO PRN (15:12)
[2020-03-01] MEDS ORDERED: IBUPROFEN 400 MG TABLET (FP) PO PRN (15:12)
[2020-03-01] MEDS ORDERED: METHOCARBAMOL 500 MG TABLET PO PRN (15:12)
[2020-03-01] MEDS ORDERED: NICOTINE POLACRILEX 2 MG GUM BUC PRN (15:12)
[2020-03-01] MEDS ORDERED: BISMUTH SUBSALICYLATE 262 MG/15 ML BTL PO PRN (15:12)
[2020-03-01 15:39] VITALS: BMI 26.2
--- OUTSIDE RECORDS SUMMARY | 2020-03-01 15:57 | XMS ---
:1965 Author Organization [facility] Support Name Relationship Address Phone UE Unavailable Unavailable Unavailable ANSON WATSON SISTER [address] [place] [address] ANSON WATSON Sister [address] [place] [address] Re-disclosure Warning The records that you are about to access may contain information from federally- assisted alcohol or drug abuse programs. If such information is present, then the following federally mandated warning applies: This information has been disclosed to you from records protected by federal confidentiality rules (42 CFR part 2). The federal rules prohibit you from making any further disclosure of this information unless further disclosure is expressly permitted by the written consent of the person to whom it pertains or as otherwise permitted by 42 CFR part 2. A general authorization for the release of medical or other information is NOT sufficient for this purpose. The Federal rules restrict any use of the information to criminally investigate or prosecute any alcohol or drug abuse patient.The records that you are about to access may contain highly sensitive health information, the redisclosure of which is protected by Article 27-F of the [facility] Public Health law. If you continue you may haveaccess to information: Regarding HIV / AIDS; Provided by facilities licensed or operated by the [facility] Office of Mental Health; or Provided by the [facility] Office for People With Developmental Disabilities. If such information is present, then the following [facility] mandated warning applies: This information has been disclosed to you from confidential records which are protected by state law. State law prohibits you from making any further disclosure of this information without the specific written consent of the person to whom it pertains, or as otherwise permitted by law. Any unauthorized further disclosure in violation of state law may result in a fine or snf sentence or both. A general authorization for the release of medical or other information is NOT sufficient authorization for further disclosure. Insurance Providers Payer name Policy type Policy ID Covered Covered libertarian's Policy P jane / Coverage libertarian ID relationship to [employer] Inf ormation type ortez MEDICAID [id number] SP [id number] MEDICARE [id number] SP [id number] 4 MEDICARE [id number] SP [id number] MEDICAID [id number] SP [id number] Medicaid [id number] S [id number] Regular Clinic Visit Medicare [id number] S [id number] A [facility] Problems, Conditions, and Diagnoses Code Display Name Description Problem Type Effective Data Sour ce(s) Dates I10 Essential Essential Diagnosis 08/05/2018 IMPERIAL (Moun t (primary) (primary) 03:55:51 PM [place] hypertension hypertension [facility]) R19.5 Other fecal Other fecal Diagnosis 08/05/2018 IMPERIAL (Mo unt abnormalities abnormalities 03:55:51 PM [facility]) Results ID Date Data Source [id number] 01/20/2020 04:29:00 PM EDT [facility] Name Value Range Interpretation Code Description Data Rasheeda rce(s) Supporting Document(s ) SARS-COV-2 [facility] PCR This lab was ordered by and reported by [facility]. ID Date Data Source [id number] 11/10/2019 01:15:00 PM EDT [facility] Name Value Range Interpretation Description Data Sup porting Code Source(s) Document(s ) SARS [facility] CORONAVIRUS 2 RNA This lab was ordered by [facility] Ac ct Bill Inter and reported by [facility]. ID Date Data Source [id number] 11/09/2019 07:19:00 PM EDT [facility] Name Value Range Interpretation Code Description Data Rasheeda rce(s) Supporting Document(s ) SARS-COV-2 [facility] PCR This lab was ordered by ORIANA GARCIA 2 and reported by [facility]. ID Date Data Source [id number] 11/09/2019 12:00:00 AM EDT [facility] Name Value Range Interpretation Code Description Data Rasheeda rce(s) Supporting Document(s ) 2019-nCoV [facility] RNA XXX [facility]+probe- Imp [facility] and reported by [facility] [facility] Procedure
[2020-03-01] MEDS: chlordiazePOXIDE HCL 25 MG CAPSULE PO SCH ×2 (17:56→22:14)
[2020-03-01] MEDS: NICOTINE 14 MG/24 HOURS TOPICAL PATCH TD SCH (17:56)
[2020-03-01] MEDS: hydrOXYzine PAMOATE 25 MG CAPSULE (FP) PO SCH ×2 (17:57→22:14)
[2020-03-01] MEDS: THIAMINE HCL 100 MG TABLET (FP) PO SCH (22:14)
[2020-03-01] MEDS: MELATONIN 5 MG TABLETS PO SCH (22:14)
[2020-03-02] MEDS: chlordiazePOXIDE HCL 25 MG CAPSULE PO SCH ×4 (07:45→23:20)
[2020-03-02] MEDS: hydrOXYzine PAMOATE 25 MG CAPSULE (FP) PO SCH ×5 (07:46→23:19)
--- NOTE | 2020-03-02 10:25 | PN ---
S CIWA - CIWA Score Nausea/Vomitin-No Nausea/No Vomiting Muscle Tremors: 2 Anxiety: 3 Agitation: 0-Normal Activity Paroxysmal Sweats: 3 Orientation: 0-Oriented Tacttile Disturbances: 0-None Auditory Disturbances: 0-None Visual Disturbances: 0-None Headache: 2-Mild CIWA-Ar Total Score: 10 [facility] Progress Note (SOAP) Subjective: c/o sweats, anxiety, headache, shakes, and interrupted sleep. Objective: 03/02/20 10:23 Vital Signs 03/02/20 03/02/20 06:03 09:29 Temperature 97.3 F L 97.1 F L Pulse Rate 70 86 Respiratory 18 18 Rate Blood Pressure 124/82 157/106 H O2 Sat by Pulse 99 Oximetry (%) Laboratory Last Values WBC 4.8 K/mm3 (4.0-10.0) 03/02/20 07:50 RBC 4.71 M/mm3 (4.00-5.60) 03/02/20 07:50 Hgb 12.6 GM/dL (11.7-16.9) 03/02/20 07:50 Hct 39.0 % (35.4-49) 03/02/20 07:50 MCV 82.9 fl (80-96) 03/02/20 07:50 MCH 26.7 pg (25.7-33.7) 03/02/20 07:50 MCHC 32.2 g/dl (32.0-35.9) 03/02/20 07:50 RDW 15.3 % (11.9-15.9) 03/02/20 07:50 Plt Count 234 K/MM3 (134-434) 03/02/20 07:50 MPV 9.1 fl (7.5-11.1) 03/02/20 07:50 Sodium 140 mmol/L (136-145) 03/02/20 07:50 Potassium 3.4 mmol/L (3.5-5.1) L 03/02/20 07:50 Chloride 104 mmol/L (98-107) 03/02/20 07:50 Carbon Dioxide 30 mmol/L (21-32) 03/02/20 07:50 Anion Gap 6 MMOL/L (8-16) L 03/02/20 07:50 BUN 16.7 mg/dL (7-18) 03/02/20 07:50 Creatinine 1.0 mg/dL (0.55-1.3) 03/02/20 07:50 Est GFR (CKD-EPI)AfAm 97.08 03/02/20 07:50 Est GFR (CKD-EPI)NonAf 83.76 03/02/20 07:50 Random Glucose 104 mg/dL (74-106) 03/02/20 07:50 Calcium 8.7 mg/dL (8.5-10.1) 03/02/20 07:50 Total Bilirubin 0.9 mg/dL (0.2-1) 03/02/20 07:50 AST 15 U/L (15-37) 03/02/20 07:50 ALT 16 U/L (13-61) 03/02/20 07:50 Alkaline Phosphatase 104 U/L (45-117) 03/02/20 07:50 Total Protein 6.2 g/dl (6.4-8.2) L 03/02/20 07:50 Albumin 3.4 g/dl (3.4-5.0) 03/02/20 07:50 Syphilis Serology Non-reactive (NONREACTIVE) 03/02/20 07:50 Labs noted. Assessment: 03/02/20 10:24 AOX3, in no acute respiratory distress. Full ROM, ambulating in the unit. Withdrawal symptoms. Plan: continue detox.
[2020-03-02] MEDS: NICOTINE 14 MG/24 HOURS TOPICAL PATCH TD SCH (10:31)
[2020-03-02] MEDS: HYDROCHLOROTHIAZIDE 25 MG TABLET (FP) PO SCH (10:31)
[2020-03-02] MEDS: PRENATAL VITAMINS W/ FOLIC ACID TABLET (FP) PO SCH (10:31)
[2020-03-02 11:44] LABS: HEMOGLOBIN 12.6 GM/dL (11.7-16.9); MCH 26.7 pg (25.7-33.7); MCHC 32.2 g/dl (32.0-35.9); MEAN CELL VOLUME 82.9 fl (80-96); MEAN PLT VOLUME 9.1 fl (7.5-11.1); PLATELET COUNT 234 K/MM3 (134-434); RBC 4.71 M/mm3 (4.00-5.60); RDW 15.3 % (11.9-15.9); WHITE BLOOD COUNT 4.8 K/mm3 (4.0-10.0)
[2020-03-02 12:03] LABS: ALBUMIN 3.4 g/dl (3.4-5.0); BLOOD UREA NITROGEN 16.7 mg/dL (7-18); CALCIUM 8.7 mg/dL (8.5-10.1); POTASSIUM 3.4 mmol/L (3.5-5.1)
[2020-03-02 12:06] LABS: BILIRUBIN,TOTAL 0.9 mg/dL (0.2-1); TOT PROT 6.2 g/dl (6.4-8.2)
[2020-03-02] MEDS: MELATONIN 5 MG TABLETS PO SCH (23:20)
[2020-03-02] MEDS: THIAMINE HCL 100 MG TABLET (FP) PO SCH (23:20)
[2020-03-03] MEDS: chlordiazePOXIDE HCL 25 MG CAPSULE PO SCH ×4 (05:22→23:02)
[2020-03-03] MEDS: hydrOXYzine PAMOATE 25 MG CAPSULE (FP) PO SCH ×5 (05:22→22:23)
[2020-03-03] MEDS: PRENATAL VITAMINS W/ FOLIC ACID TABLET (FP) PO SCH (10:12)
[2020-03-03] MEDS: NICOTINE 14 MG/24 HOURS TOPICAL PATCH TD SCH (10:12)
[2020-03-03] MEDS: HYDROCHLOROTHIAZIDE 25 MG TABLET (FP) PO SCH (10:12)
--- NOTE | 2020-03-03 10:46 | PN ---
S CIWA - CIWA Score Nausea/Vomitin-Mild Nausea/No Vomiting Muscle Tremors: 2 Anxiety: 2 Agitation: 0-Normal Activity Paroxysmal Sweats: No Perspiration Orientation: 0-Oriented Tacttile Disturbances: 0-None Auditory Disturbances: 0-None Visual Disturbances: 2-Mild Sensitivity Headache: 2-Mild CIWA-Ar Total Score: 9 BHS Progress Note (SOAP) Subjective: 54 years old male was admitted on 03/01/20 for alcohol withdrawal sx management treating with librium detox regiment bp elevation denies history of hypertension chart reviewed taking hctz for bp elevation mild headache no blurred vision Objective: 03/03/20 10:48 Vital Signs - 24 hr 03/02/20 03/02/20 03/02/20 12:33 16:47 20:50 Temperature 96.9 F L 97.1 F L 97.3 F L Pulse Rate 82 61 84 Respiratory 18 18 18 Rate Blood Pressure 136/96 118/75 129/87 O2 Sat by Pulse 96 98 Oximetry (%) 03/03/20 03/03/20 05:47 08:43 Temperature 96.9 F L 97.3 F L Pulse Rate 69 87 Respiratory 18 18 Rate Blood Pressure 106/66 136/90 O2 Sat by Pulse 96 Oximetry (%) Laboratory Tests 03/01/20 03/02/20 03/02/20 15:34 07:50 07:50 WBC 4.8 RBC 4.71 Hgb 12.6 Hct 39.0 MCV 82.9 MCH 26.7 MCHC 32.2 RDW 15.3 Plt Count 234 MPV 9.1 Sodium 140 Potassium 3.4 L Chloride 104 Carbon Dioxide 30 Anion Gap 6 L BUN 16.7 Creatinine 1.0 Est GFR (CKD-EPI)AfAm 97.08 Est GFR (CKD-EPI)NonAf 83.76 Random Glucose 104 Calcium 8.7 Total Bilirubin 0.9 AST 15 ALT 16 Alkaline Phosphatase 104 Total Protein 6.2 L Albumin 3.4 Syphilis Serology COVID-19 ([facility]) Not detected 03/02/20 07:50 WBC RBC Hgb Hct MCV MCH MCHC RDW Plt Count MPV Sodium Potassium Chloride Carbon Dioxide Anion Gap BUN Creatinine Est GFR (CKD-EPI)AfAm Est GFR (CKD-EPI)NonAf Random Glucose Calcium Total Bilirubin AST ALT Alkaline Phosphatase Total Protein Albumin Syphilis Serology Non-reactive COVID-19 ([facility]) lab noted Assessment: 03/03/20 10:52 alcohol withdrawal Plan: librium regiment
[2020-03-03] MEDS: MELATONIN 5 MG TABLETS PO SCH (22:23)
[2020-03-03] MEDS: THIAMINE HCL 100 MG TABLET (FP) PO SCH (22:23)
[2020-03-04] MEDS ORDERED: chlordiazePOXIDE HCL 10 MG CAPSULE PO PRN
[2020-03-04] MEDS: hydrOXYzine PAMOATE 25 MG CAPSULE (FP) PO SCH ×5 (05:17→22:09)
[2020-03-04] MEDS: chlordiazePOXIDE HCL 10 MG CAPSULE PO SCH ×4 (05:17→22:09)
--- NOTE | 2020-03-04 08:36 | PN ---
Teaching Attending Note Name of Resident: Navi Mills ATTENDING PHYSICIAN STATEMENT I saw and evaluated the patient. I reviewed the resident's note and discussed the case with the resident. I agree with the resident's findings and plan as documented. SUBJECTIVE: OBJECTIVE: ASSESSMENT AND PLAN: 1. Alcohol withdrawal, [facility] 12 Plan 1. Librium detox protocol
--- NOTE | 2020-03-04 09:22 | PN ---
S CIWA - CIWA Score Nausea/Vomitin-Mild Nausea/No Vomiting Muscle Tremors: 1-None Visible, but [place] Anxiety: 1-Mildly Anxious Agitation: 1-Slight > Activity Paroxysmal Sweats: 1-Minimal Palms Moist Orientation: 0-Oriented Tacttile Disturbances: 1-Very Mild Itch/Numbness Auditory Disturbances: 0-None Visual Disturbances: 1-Very Mild Sensitivity Headache: 0-None Present CIWA-Ar Total Score: 7 S Progress Note (SOAP) Subjective: 54 years old male was admitted on 03/01/20 for alcohol withdrawal sx management treating with librum detox regiment feels ok to resting on bed comfortable ate breakfast in room tolerated food well mr ochoa is [facility] for alcohol abuse treatment Objective: 03/04/20 09:19 Vital Signs - 24 hr 03/03/20 03/03/20 03/03/20 13:40 16:16 20:25 Temperature 97.3 F L 97.1 F L 97.3 F L Pulse Rate 88 76 97 H Respiratory 18 18 18 Rate Blood Pressure 119/80 91/54 L 122/82 O2 Sat by Pulse 100 99 Oximetry (%) 03/04/20 03/04/20 06:09 08:55 Temperature 97.8 F 98.2 F Pulse Rate 71 82 Respiratory 18 17 Rate Blood Pressure 109/71 134/86 O2 Sat by Pulse 100 100 Oximetry (%) Laboratory Tests 03/01/20 03/02/20 03/02/20 15:34 07:50 07:50 WBC 4.8 RBC 4.71 Hgb 12.6 Hct 39.0 MCV 82.9 MCH 26.7 MCHC 32.2 RDW 15.3 Plt Count 234 MPV 9.1 Sodium 140 Potassium 3.4 L Chloride 104 Carbon Dioxide 30 Anion Gap 6 L BUN 16.7 Creatinine 1.0 Est GFR (CKD-EPI)AfAm 97.08 Est GFR (CKD-EPI)NonAf 83.76 Random Glucose 104 Calcium 8.7 Total Bilirubin 0.9 AST 15 ALT 16 Alkaline Phosphatase 104 Total Protein 6.2 L Albumin 3.4 Syphilis Serology COVID-19 ([facility]) Not detected 03/02/20 07:50 WBC RBC Hgb Hct MCV MCH MCHC RDW Plt Count MPV Sodium Potassium Chloride Carbon Dioxide Anion Gap BUN Creatinine Est GFR (CKD-EPI)AfAm Est GFR (CKD-EPI)NonAf Random Glucose Calcium Total Bilirubin AST ALT Alkaline Phosphatase Total Protein Albumin Syphilis Serology Non-reactive COVID-19 ([facility]) lab noted 03/04/20 09:22 K+ 3.4 potassium 20meq po x 2 Assessment: 03/04/20 09:23 alcohol withdrawal Plan: librium regiment
[2020-03-04] MEDS: POTASSIUM CHLORIDE TABS 20 MEQ TABLET.ER (FP) PO SCH ×2 (10:23→14:25)
[2020-03-04] MEDS: NICOTINE 14 MG/24 HOURS TOPICAL PATCH TD SCH (10:23)
[2020-03-04] MEDS: PRENATAL VITAMINS W/ FOLIC ACID TABLET (FP) PO SCH (10:23)
[2020-03-04] MEDS: HYDROCHLOROTHIAZIDE 25 MG TABLET (FP) PO SCH (10:23)
[2020-03-04] MEDS: THIAMINE HCL 100 MG TABLET (FP) PO SCH (22:09)
[2020-03-04] MEDS: MELATONIN 5 MG TABLETS PO SCH (22:09)
[2020-03-05] MEDS: chlordiazePOXIDE HCL 10 MG CAPSULE PO SCH ×2 (06:17→17:48)
[2020-03-05] MEDS: hydrOXYzine PAMOATE 25 MG CAPSULE (FP) PO SCH ×5 (06:17→22:09)
[2020-03-05] MEDS: PRENATAL VITAMINS W/ FOLIC ACID TABLET (FP) PO SCH (10:20)
[2020-03-05] MEDS: HYDROCHLOROTHIAZIDE 25 MG TABLET (FP) PO SCH (10:20)
[2020-03-05] MEDS: NICOTINE 14 MG/24 HOURS TOPICAL PATCH TD SCH (10:20)
--- NOTE | 2020-03-05 10:40 | PN ---
S CIWA - CIWA Score Nausea/Vomitin-No Nausea/No Vomiting Muscle Tremors: None Anxiety: 1-Mildly Anxious Agitation: 1-Slight > Activity Paroxysmal Sweats: No Perspiration Orientation: 0-Oriented Tacttile Disturbances: 1-Very Mild Itch/Numbness Auditory Disturbances: 0-None Visual Disturbances: 0-None Headache: 2-Mild CIWA-Ar Total Score: 5 BHS Progress Note (SOAP) Subjective: alert,irritable,anxious,interrupted sleep,aching pain,interrupted sleep Objective: 03/05/20 13:23 Vital Signs Temperature 97.3 F L 03/05/20 12:44 Pulse Rate 77 03/05/20 12:44 Respiratory Rate 18 03/05/20 12:44 Blood Pressure 100/70 03/05/20 12:44 O2 Sat by Pulse Oximetry (%) 98 03/05/20 12:44 Assessment: 03/05/20 13:23 withdrawal symptom Plan: continue detox,discharge in am
[2020-03-05] MEDS: MELATONIN 5 MG TABLETS PO SCH (22:09)
[2020-03-05] MEDS: THIAMINE HCL 100 MG TABLET (FP) PO SCH (22:09)
[2020-03-06] MEDS ORDERED: chlordiazePOXIDE HCL 10 MG CAPSULE PO ONE (05:00)
[2020-03-06] MEDS: hydrOXYzine PAMOATE 25 MG CAPSULE (FP) PO SCH (05:55)
[2020-03-06 06:25] VITALS: BP 115/80; PULSE 72; TEMP 97.5
--- NOTE | 2020-03-06 08:44 | DS ---
[facility] Detox Discharge Summary Admission Date: 03/01/20 Discharge Date: 03/06/20 - History Present History: Alcohol Dependence Additional Comments: alert,oriented x 3 ambulation on the unit lung clear on auscultation bilaterally no abdominal pain no edema of legs detox completed,no withdrawal symptom stable for discharge declined rehab total time of discharge 35 minutes follow up with after care program as arrangement Pertinent Past History: hypertension alcohol withdrawal seizure cocaine dependence nicotine dependence - Physical Exam Results Vital Signs: Vital Signs Temperature 97.5 F L 03/06/20 06:24 Pulse Rate 72 03/06/20 06:24 Respiratory Rate 18 03/06/20 06:24 Blood Pressure 115/80 03/06/20 06:24 O2 Sat by Pulse Oximetry (%) 99 03/06/20 06:24 Pertinent Admission Physical Exam Findings: withdrawal signs and symptom Laboratory Last Values WBC 4.8 K/mm3 (4.0-10.0) 03/02/20 07:50 RBC 4.71 M/mm3 (4.00-5.60) 03/02/20 07:50 Hgb 12.6 GM/dL (11.7-16.9) 03/02/20 07:50 Hct 39.0 % (35.4-49) 03/02/20 07:50 MCV 82.9 fl (80-96) 03/02/20 07:50 MCH 26.7 pg (25.7-33.7) 03/02/20 07:50 MCHC 32.2 g/dl (32.0-35.9) 03/02/20 07:50 RDW 15.3 % (11.9-15.9) 03/02/20 07:50 Plt Count 234 K/MM3 (134-434) 03/02/20 07:50 MPV 9.1 fl (7.5-11.1) 03/02/20 07:50 Sodium 140 mmol/L (136-145) 03/02/20 07:50 Potassium 3.4 mmol/L (3.5-5.1) L 03/02/20 07:50 Chloride 104 mmol/L (98-107) 03/02/20 07:50 Carbon Dioxide 30 mmol/L (21-32) 03/02/20 07:50 Anion Gap 6 MMOL/L (8-16) L 03/02/20 07:50 BUN 16.7 mg/dL (7-18) 03/02/20 07:50 Creatinine 1.0 mg/dL (0.55-1.3) 03/02/20 07:50 Est GFR (CKD-EPI)AfAm 97.08 03/02/20 07:50 Est GFR (CKD-EPI)NonAf 83.76 03/02/20 07:50 Random Glucose 104 mg/dL (74-106) 03/02/20 07:50 Calcium 8.7 mg/dL (8.5-10.1) 03/02/20 07:50 Total Bilirubin 0.9 mg/dL (0.2-1) 03/02/20 07:50 AST 15 U/L (15-37) 03/02/20 07:50 ALT 16 U/L (13-61) 03/02/20 07:50 Alkaline Phosphatase 104 U/L (45-117) 03/02/20 07:50 Total Protein 6.2 g/dl (6.4-8.2) L 03/02/20 07:50 Albumin 3.4 g/dl (3.4-5.0) 03/02/20 07:50 Syphilis Serology Non-reactive (NONREACTIVE) 03/02/20 07:50 COVID-19 ([facility]) Not detected (Not Detected) 03/01/20 15:34 Vital Signs Temperature 97.5 F L 03/06/20 06:24 Pulse Rate 72 03/06/20 06:24 Respiratory Rate 18 03/06/20 06:24 Blood Pressure 115/80 03/06/20 06:24 O2 Sat by Pulse Oximetry (%) 99 03/06/20 06:24 - Treatment Hospital Course: Detox Protocol Followed, Detoxed Safely, Responded well, Discharged Condition Good Patient has Accepted a Rehab Referral to: declined - Medication Discharge Medications: Ambulatory Orders Hydrochlorothiazide 25 mg PO DAILY #14 tablet 11/14/19 - Diagnosis (1) Alcohol dependence with withdrawal Status: Acute Qualifiers: Complication of substance-induced condition: uncomplicated Qualified Code(s): F10.230 - Alcohol dependence with withdrawal, uncomplicated (2) Nicotine dependence Status: Acute Qualifiers: Nicotine product type: cigarettes Substance use status: in withdrawal Qualified Code(s): F17.213 - Nicotine dependence, cigarettes, with withdrawal (3) Hypertension Status: Chronic Qualifiers: Hypertension type: essential hypertension Qualified Code(s): I10 - Essential (primary) hypertension (4) Alcohol withdrawal seizure Status: Suspected (5) Cocaine dependence Status: Acute - AMA Did Patient Leave Against Medical Advice: No
--- NOTE | 2020-03-06 08:44 | PN ---
S CIWA - CIWA Score Nausea/Vomitin-No Nausea/No Vomiting Muscle Tremors: None Anxiety: 1-Mildly Anxious Agitation: 0-Normal Activity Paroxysmal Sweats: No Perspiration Orientation: 0-Oriented Tacttile Disturbances: 0-None Auditory Disturbances: 0-None Visual Disturbances: 0-None Headache: 0-None Present CIWA-Ar Total Score: 1 [facility] Progress Note (SOAP) Subjective: alert,no complaint Objective: 03/06/20 18:24 Vital Signs Period Temp Pulse Resp BP Sys/Zhang Pulse Ox Last 24 Hr 97.0 F-97.5 F 72-98 18-18 115-129/80-95 98-99 03/06/20 18:24 Vital Signs Temperature 97.5 F L 03/06/20 06:24 Pulse Rate 72 03/06/20 06:24 Respiratory Rate 18 03/06/20 06:24 Blood Pressure 115/80 03/06/20 06:24 O2 Sat by Pulse Oximetry (%) 99 03/06/20 06:24 Assessment: 03/06/20 18:25 detox completed,no withdrawal symptom Plan: stable for discharge today,decline rehab,follow up with after care program as arrangement by counselor
== END 2020-03-06 09:24 | disposition home or self-care (01) | DRG 897 ==
LOC: YASAS 13:01 → Y3N 15:22
PROVIDERS: ADMIT Allergy & Immunology; ATTEND Allergy & Immunology
PROC: HZ2ZZZZ Detoxification Services for Substance Abuse Treatment (ICD-10-PCS; principal; 2020-03-01)
DX: F10.230 Alcohol dependence with withdrawal, uncomplicated (principal); F14.20 Cocaine dependence, uncomplicated; C18.9 Malignant neoplasm of colon, unspecified; F17.210 Nicotine dependence, cigarettes, uncomplicated; I10 Essential (primary) hypertension; E78.5 Hyperlipidemia, unspecified; D64.9 Anemia, unspecified; K21.9 Gastro-esophageal reflux disease without esophagitis; R63.4 Abnormal weight loss; Z68.26 Body mass index [BMI] 26.0-26.9, adult
CPT/HCPCS: 36415; 80053; 85027; 86780; U0003

== ENCOUNTER 2021-06-25 13:49 | Inpatient (IN) | payer OTHER ==
[2021-06-25] MEDS ORDERED: METHOCARBAMOL 500 MG TABLET PO PRN (14:57)
[2021-06-25] MEDS ORDERED: BISMUTH SUBSALICYLATE 262 MG/15 ML BTL PO PRN (14:57)
[2021-06-25] MEDS ORDERED: ONDANSETRON *ODT* 4 MG TABLET SL PRN (14:57)
[2021-06-25] MEDS ORDERED: chlordiazePOXIDE HCL 25 MG CAPSULE PO PRN (14:57)
[2021-06-25] MEDS ORDERED: MAGNESIUM CITRATE 300 ML BOTTLE PO PRN (14:57)
[2021-06-25] MEDS ORDERED: MAGNESIUM HYDROX 2400MG/30ML ORAL SUSPENSION 30 ML CUP PO PRN (14:57)
[2021-06-25] MEDS ORDERED: ACETAMINOPHEN 325 MG TABLET (FP) PO PRN ×2 (14:57)
[2021-06-25] MEDS ORDERED: MAG HYDROX/AL HYDROX/SIMETH 30 ML UNIT-DOSE CUP PO PRN (14:57)
[2021-06-25] MEDS ORDERED: NICOTINE 10 MG CARTRIDGE (INHALER) IH PRN (14:57)
[2021-06-25] MEDS ORDERED: MENTHOL/PHENOL 1 EACH UD MM PRN (14:57)
[2021-06-25] MEDS ORDERED: IBUPROFEN 400 MG TABLET (FP) PO PRN (14:57)
[2021-06-25 15:41] VITALS: BMI 22.4
[2021-06-25] MEDS: chlordiazePOXIDE HCL 25 MG CAPSULE PO SCH ×2 (20:43→22:10)
[2021-06-25] MEDS: hydrOXYzine PAMOATE 25 MG CAPSULE (FP) PO SCH ×2 (20:48→22:10)
[2021-06-26] MEDS: THIAMINE HCL 100 MG TABLET (FP) PO SCH ×2 (00:04→22:50)
[2021-06-26] MEDS: MELATONIN 5 MG TABLETS PO SCH ×2 (00:04→22:50)
[2021-06-26] MEDS: hydrOXYzine PAMOATE 25 MG CAPSULE (FP) PO SCH ×5 (05:57→22:50)
[2021-06-26] MEDS: chlordiazePOXIDE HCL 25 MG CAPSULE PO SCH ×4 (05:58→22:51)
[2021-06-26] MEDS: PRENATAL VITAMINS W/ FOLIC ACID TABLET (FP) PO SCH (10:17)
[2021-06-26] MEDS ORDERED: FLU VACC QS2021-22(6MOS UP)/PF 60 MCG/0.5 ML SYRINGE IM ONE (12:00)
[2021-06-26 13:03] LABS: HEMATOCRIT 43.8 % (35.4-49); MCH 27.3 pg (25.7-33.7); MEAN CELL VOLUME 85.5 fl (80-96); PLATELET COUNT 251 10^3/uL (134-434); RBC 5.12 M/mm3 (4.00-5.60); RDW 15.5 % (11.9-15.9); WHITE BLOOD COUNT 4.5 K/mm3 (4.0-10.0)
[2021-06-26 13:31] LABS: ALBUMIN 3.5 g/dl (3.4-5.0); BLOOD UREA NITROGEN 21.5 mg/dL (7-18); CALCIUM 8.9 mg/dL (8.5-10.1)
[2021-06-26 13:33] LABS: CREATININE 1.2 mg/dL (0.55-1.3)
[2021-06-26 13:35] LABS: TOT PROT 6.3 g/dl (6.4-8.2)
[2021-06-27] MEDS: chlordiazePOXIDE HCL 25 MG CAPSULE PO SCH ×4 (05:51→22:25)
[2021-06-27] MEDS: hydrOXYzine PAMOATE 25 MG CAPSULE (FP) PO SCH ×5 (05:51→22:25)
[2021-06-27] MEDS: PRENATAL VITAMINS W/ FOLIC ACID TABLET (FP) PO SCH (10:17)
[2021-06-27] MEDS: THIAMINE HCL 100 MG TABLET (FP) PO SCH (22:25)
[2021-06-27] MEDS: MELATONIN 5 MG TABLETS PO SCH (22:25)
[2021-06-28] MEDS ORDERED: chlordiazePOXIDE HCL 10 MG CAPSULE PO PRN
[2021-06-28] MEDS: chlordiazePOXIDE HCL 10 MG CAPSULE PO SCH ×4 (05:20→22:03)
[2021-06-28] MEDS: hydrOXYzine PAMOATE 25 MG CAPSULE (FP) PO SCH ×5 (05:20→22:03)
[2021-06-28] MEDS: PRENATAL VITAMINS W/ FOLIC ACID TABLET (FP) PO SCH (10:54)
[2021-06-28] MEDS: THIAMINE HCL 100 MG TABLET (FP) PO SCH (22:03)
[2021-06-28] MEDS: MELATONIN 5 MG TABLETS PO SCH (22:03)
[2021-06-29] MEDS: hydrOXYzine PAMOATE 25 MG CAPSULE (FP) PO SCH ×5 (05:38→22:10)
[2021-06-29] MEDS: chlordiazePOXIDE HCL 10 MG CAPSULE PO SCH ×2 (05:38→17:28)
[2021-06-29] MEDS: PRENATAL VITAMINS W/ FOLIC ACID TABLET (FP) PO SCH (10:18)
[2021-06-29] MEDS: MELATONIN 5 MG TABLETS PO SCH (22:10)
[2021-06-29] MEDS: THIAMINE HCL 100 MG TABLET (FP) PO SCH (22:10)
[2021-06-30] MEDS ORDERED: chlordiazePOXIDE HCL 10 MG CAPSULE PO ONE (05:00)
[2021-06-30] MEDS: hydrOXYzine PAMOATE 25 MG CAPSULE (FP) PO SCH ×2 (05:38→10:25)
[2021-06-30 09:06] VITALS: BP 146/84; PULSE 83; TEMP 96.9
[2021-06-30] MEDS: PRENATAL VITAMINS W/ FOLIC ACID TABLET (FP) PO SCH (10:25)
== END 2021-06-30 10:25 | disposition home or self-care (01) | DRG 897 ==
LOC: YASAS 13:49 → Y3N 19:26
PROVIDERS: ADMIT Allergy & Immunology; ATTEND Allergy & Immunology
PROC: HZ2ZZZZ Detoxification Services for Substance Abuse Treatment (ICD-10-PCS; principal; 2021-06-25)
DX: F10.230 Alcohol dependence with withdrawal, uncomplicated (principal); F14.20 Cocaine dependence, uncomplicated; F12.10 Cannabis abuse, uncomplicated; F17.210 Nicotine dependence, cigarettes, uncomplicated; I10 Essential (primary) hypertension; R63.4 Abnormal weight loss; Z68.22 Body mass index [BMI] 22.0-22.9, adult
CPT/HCPCS: 36415; 80053; 82962; 85027; 86780; C9803; U0003; U0005

== ENCOUNTER 2021-07-26 12:44 | Inpatient (IN) | payer OTHER ==
[2021-07-26 14:17] VITALS: BMI 21.9
[2021-07-26] MEDS ORDERED: chlordiazePOXIDE HCL 25 MG CAPSULE PO PRN (17:01)
[2021-07-26] MEDS ORDERED: NICOTINE 10 MG CARTRIDGE (INHALER) IH PRN (17:01)
[2021-07-26] MEDS ORDERED: MAGNESIUM CITRATE 300 ML BOTTLE PO PRN (17:01)
[2021-07-26] MEDS ORDERED: MENTHOL/PHENOL 1 EACH UD MM PRN (17:01)
[2021-07-26] MEDS ORDERED: IBUPROFEN 400 MG TABLET (FP) PO PRN (17:01)
[2021-07-26] MEDS ORDERED: MAGNESIUM HYDROX 2400MG/30ML ORAL SUSPENSION 30 ML CUP PO PRN (17:01)
[2021-07-26] MEDS ORDERED: BISMUTH SUBSALICYLATE 524 MG/30 ML PO PRN (17:01)
[2021-07-26] MEDS ORDERED: ACETAMINOPHEN 325 MG TABLET (FP) PO PRN ×2 (17:01)
[2021-07-26] MEDS ORDERED: ONDANSETRON *ODT* 4 MG TABLET SL PRN (17:01)
[2021-07-26] MEDS ORDERED: LOPERAMIDE HCL 2 MG CAPSULE PO PRN (17:01)
[2021-07-26] MEDS ORDERED: MAG HYDROX/AL HYDROX/SIMETH 30 ML UNIT-DOSE CUP PO PRN (17:01)
[2021-07-26] MEDS ORDERED: hydrOXYzine PAMOATE 25 MG CAPSULE (FP) PO SCH (18:00)
[2021-07-26] MEDS: chlordiazePOXIDE HCL 25 MG CAPSULE PO SCH (23:03)
[2021-07-26] MEDS: MELATONIN 5 MG TABLETS PO SCH (23:03)
[2021-07-26] MEDS: hydrOXYzine PAMOATE 25 MG CAPSULE (FP) PO PRN (23:03)
[2021-07-26] MEDS: THIAMINE HCL 100 MG TABLET (FP) PO SCH (23:03)
[2021-07-27] MEDS: chlordiazePOXIDE HCL 25 MG CAPSULE PO SCH ×4 (06:59→22:42)
[2021-07-27] MEDS: PRENATAL VITAMINS W/ FOLIC ACID TABLET (FP) PO SCH (11:14)
[2021-07-27] MEDS: METHOCARBAMOL 500 MG TABLET PO PRN (11:14)
[2021-07-27] MEDS ORDERED: FLU VACC QS2021-22(6MOS UP)/PF 60 MCG/0.5 ML SYRINGE IM ONE (13:00)
[2021-07-27] MEDS: HYDROCHLOROTHIAZIDE 12.5 MG CAPSULE (FP) PO SCH (13:23)
[2021-07-27] MEDS: hydrOXYzine PAMOATE 25 MG CAPSULE (FP) PO PRN ×2 (18:18→22:42)
[2021-07-27] MEDS: MELATONIN 5 MG TABLETS PO SCH (22:42)
[2021-07-27] MEDS: THIAMINE HCL 100 MG TABLET (FP) PO SCH (22:42)
[2021-07-28] MEDS: chlordiazePOXIDE HCL 25 MG CAPSULE PO SCH ×4 (05:52→22:17)
[2021-07-28] MEDS: HYDROCHLOROTHIAZIDE 12.5 MG CAPSULE (FP) PO SCH (10:29)
[2021-07-28] MEDS: PRENATAL VITAMINS W/ FOLIC ACID TABLET (FP) PO SCH (10:29)
[2021-07-28 16:38] LABS: ALBUMIN 3.2 g/dl (3.4-5.0); BLOOD UREA NITROGEN 17.6 mg/dL (7-18); CALCIUM 8.9 mg/dL (8.5-10.1)
[2021-07-28 16:40] LABS: HEMATOCRIT 41.5 % (35.4-49); HEMOGLOBIN 13.3 GM/dL (11.7-16.9); MCH 27.8 pg (25.7-33.7); MEAN CELL VOLUME 86.9 fl (80-96); MEAN PLT VOLUME 9.1 fl (7.5-11.1); PLATELET COUNT 218 10^3/uL (134-434); RBC 4.77 M/mm3 (4.00-5.60); RDW 15.2 % (11.9-15.9); WHITE BLOOD COUNT 3.9 K/mm3 (4.0-10.0)
[2021-07-28 16:42] LABS: BILIRUBIN,TOTAL 0.8 mg/dL (0.2-1)
[2021-07-28] MEDS: THIAMINE HCL 100 MG TABLET (FP) PO SCH (22:17)
[2021-07-28] MEDS: MELATONIN 5 MG TABLETS PO SCH (22:17)
[2021-07-29] MEDS ORDERED: chlordiazePOXIDE HCL 10 MG CAPSULE PO PRN
[2021-07-29] MEDS: chlordiazePOXIDE HCL 10 MG CAPSULE PO SCH ×4 (05:39→22:33)
[2021-07-29 08:10] LABS: SARS-CoV-2 NAA Not Detected (Not Detected)
[2021-07-29] MEDS: PRENATAL VITAMINS W/ FOLIC ACID TABLET (FP) PO SCH (10:31)
[2021-07-29] MEDS: hydrOXYzine PAMOATE 25 MG CAPSULE (FP) PO PRN (10:32)
[2021-07-29] MEDS: HYDROCHLOROTHIAZIDE 12.5 MG CAPSULE (FP) PO SCH (10:32)
[2021-07-29] MEDS: METHOCARBAMOL 500 MG TABLET PO PRN (10:32)
[2021-07-29] MEDS: THIAMINE HCL 100 MG TABLET (FP) PO SCH (22:33)
[2021-07-29] MEDS: MELATONIN 5 MG TABLETS PO SCH (22:34)
[2021-07-30] MEDS: chlordiazePOXIDE HCL 10 MG CAPSULE PO SCH ×2 (05:24→18:47)
[2021-07-30] MEDS: PRENATAL VITAMINS W/ FOLIC ACID TABLET (FP) PO SCH (10:32)
[2021-07-30] MEDS: METHOCARBAMOL 500 MG TABLET PO PRN ×2 (10:33→22:28)
[2021-07-30] MEDS: HYDROCHLOROTHIAZIDE 12.5 MG CAPSULE (FP) PO SCH (10:33)
[2021-07-30] MEDS: hydrOXYzine PAMOATE 25 MG CAPSULE (FP) PO PRN ×3 (10:33→22:28)
[2021-07-30] MEDS: MELATONIN 5 MG TABLETS PO SCH (22:28)
[2021-07-30] MEDS: THIAMINE HCL 100 MG TABLET (FP) PO SCH (22:28)
[2021-07-31] MEDS ORDERED: chlordiazePOXIDE HCL 10 MG CAPSULE PO ONE (05:00)
[2021-07-31 09:37] VITALS: BP 142/72; PULSE 90; TEMP 98.6
[2021-07-31] MEDS: HYDROCHLOROTHIAZIDE 12.5 MG CAPSULE (FP) PO SCH (10:19)
[2021-07-31] MEDS: PRENATAL VITAMINS W/ FOLIC ACID TABLET (FP) PO SCH (10:20)
[2021-08-01 15:09] LABS: SARS-CoV-2 NAA Not Detected (Not Detected)
== END 2021-07-31 10:32 | disposition home or self-care (01) | DRG 897 ==
LOC: YASAS 12:44 → Y6N 19:37
PROVIDERS: ADMIT Allergy & Immunology; ATTEND Allergy & Immunology
PROC: HZ2ZZZZ Detoxification Services for Substance Abuse Treatment (ICD-10-PCS; principal; 2021-07-26)
DX: F10.230 Alcohol dependence with withdrawal, uncomplicated (principal); F14.20 Cocaine dependence, uncomplicated; F12.20 Cannabis dependence, uncomplicated; F17.210 Nicotine dependence, cigarettes, uncomplicated; F19.24 Other psychoactive substance dependence with psychoactive substance-induced mood disorder; I10 Essential (primary) hypertension; H40.9 Unspecified glaucoma; H54.62 Unqualified visual loss, left eye, normal vision right eye; K21.9 Gastro-esophageal reflux disease without esophagitis; Z86.69 Personal history of other diseases of the nervous system and sense organs; Z86.79 Personal history of other diseases of the circulatory system
CPT/HCPCS: 36415; 80053; 85027; 86780; 87811; 90686; C9803; G0008; U0003; U0005

== ENCOUNTER 2021-09-04 13:02 | Inpatient (IN) | payer OTHER ==
[2021-09-04] MEDS ORDERED: MAGNESIUM HYDROX 2400MG/30ML ORAL SUSPENSION 30 ML CUP PO PRN (14:22)
[2021-09-04] MEDS ORDERED: ACETAMINOPHEN 325 MG TABLET (FP) PO PRN ×2 (14:22)
[2021-09-04] MEDS ORDERED: MAG HYDROX/AL HYDROX/SIMETH 30 ML UNIT-DOSE CUP PO PRN (14:22)
[2021-09-04] MEDS ORDERED: DICYCLOMINE HCL 10 MG CAPSULE PO PRN (14:22)
[2021-09-04] MEDS ORDERED: chlordiazePOXIDE HCL 25 MG CAPSULE PO PRN (14:22)
[2021-09-04] MEDS ORDERED: IBUPROFEN 400 MG TABLET (FP) PO PRN (14:22)
[2021-09-04] MEDS ORDERED: MAGNESIUM CITRATE 300 ML BOTTLE PO PRN (14:22)
[2021-09-04] MEDS ORDERED: BISMUTH SUBSALICYLATE 524 MG/30 ML PO PRN (14:22)
[2021-09-04] MEDS ORDERED: ONDANSETRON *ODT* 4 MG TABLET SL PRN (14:22)
[2021-09-04] MEDS ORDERED: LOPERAMIDE HCL 2 MG CAPSULE PO PRN (14:22)
[2021-09-04] MEDS ORDERED: NICOTINE 10 MG CARTRIDGE (INHALER) IH PRN (14:22)
[2021-09-04] MEDS ORDERED: MENTHOL/PHENOL 1 EACH UD MM PRN (14:22)
[2021-09-04 14:42] VITALS: BMI 21.9
[2021-09-04] MEDS ORDERED: HYDROCHLOROTHIAZIDE 12.5 MG CAPSULE (FP) ONE (17:49)
[2021-09-04] MEDS ORDERED: chlordiazePOXIDE HCL 25 MG CAPSULE ONE (17:54)
[2021-09-04] MEDS: HYDROCHLOROTHIAZIDE 12.5 MG CAPSULE (FP) PO SCH (17:56)
[2021-09-04] MEDS: chlordiazePOXIDE HCL 25 MG CAPSULE PO SCH ×2 (17:56→22:35)
[2021-09-04] MEDS: hydrOXYzine PAMOATE 25 MG CAPSULE (FP) PO SCH ×2 (19:34→22:34)
[2021-09-04] MEDS: MELATONIN 5 MG TABLETS PO SCH (22:34)
[2021-09-04] MEDS: THIAMINE HCL 100 MG TABLET (FP) PO SCH (22:34)
[2021-09-05] MEDS: chlordiazePOXIDE HCL 25 MG CAPSULE PO SCH ×4 (06:36→22:45)
[2021-09-05] MEDS: hydrOXYzine PAMOATE 25 MG CAPSULE (FP) PO SCH ×5 (06:36→22:45)
[2021-09-05 10:04] LABS: HEMATOCRIT 39.3 % (35.4-49); HEMOGLOBIN 13.1 GM/dL (11.7-16.9); MCH 28.2 pg (25.7-33.7); MCHC 33.2 g/dl (32.0-35.9); MEAN CELL VOLUME 84.9 fl (80-96); MEAN PLT VOLUME 8.5 fl (7.5-11.1); PLATELET COUNT 235 10^3/uL (134-434); RBC 4.63 M/mm3 (4.00-5.60); RDW 14.5 % (11.9-15.9); WHITE BLOOD COUNT 4.4 K/mm3 (4.0-10.0)
[2021-09-05 10:14] LABS: CALCIUM 8.5 mg/dL (8.5-10.1)
[2021-09-05 10:15] LABS: ALBUMIN 2.9 g/dl (3.4-5.0); BLOOD UREA NITROGEN 18.2 mg/dL (7-18)
[2021-09-05 10:18] LABS: CREATININE 1.2 mg/dL (0.55-1.3)
[2021-09-05 10:19] LABS: BILIRUBIN,TOTAL 0.8 mg/dL (0.2-1)
[2021-09-05] MEDS: PRENATAL VITAMINS W/ FOLIC ACID TABLET (FP) PO SCH (10:55)
[2021-09-05] MEDS: METHOCARBAMOL 500 MG TABLET PO PRN (10:55)
[2021-09-05] MEDS: HYDROCHLOROTHIAZIDE 12.5 MG CAPSULE (FP) PO SCH (13:53)
[2021-09-05] MEDS: THIAMINE HCL 100 MG TABLET (FP) PO SCH (22:45)
[2021-09-05] MEDS: MELATONIN 5 MG TABLETS PO SCH (22:45)
[2021-09-06] MEDS: chlordiazePOXIDE HCL 25 MG CAPSULE PO SCH ×4 (05:53→22:26)
[2021-09-06] MEDS: hydrOXYzine PAMOATE 25 MG CAPSULE (FP) PO SCH ×5 (05:53→22:27)
[2021-09-06] MEDS: HYDROCHLOROTHIAZIDE 12.5 MG CAPSULE (FP) PO SCH (10:27)
[2021-09-06] MEDS: PRENATAL VITAMINS W/ FOLIC ACID TABLET (FP) PO SCH (10:27)
[2021-09-06 14:08] LABS: SARS-CoV-2 NAA Not Detected (Not Detected)
[2021-09-06] MEDS: THIAMINE HCL 100 MG TABLET (FP) PO SCH (22:26)
[2021-09-06] MEDS: MELATONIN 5 MG TABLETS PO SCH (22:27)
[2021-09-07] MEDS ORDERED: chlordiazePOXIDE HCL 10 MG CAPSULE PO PRN
[2021-09-07] MEDS: hydrOXYzine PAMOATE 25 MG CAPSULE (FP) PO SCH ×5 (05:56→22:20)
[2021-09-07] MEDS: chlordiazePOXIDE HCL 10 MG CAPSULE PO SCH ×4 (05:56→22:20)
[2021-09-07] MEDS: PRENATAL VITAMINS W/ FOLIC ACID TABLET (FP) PO SCH (10:24)
[2021-09-07] MEDS: HYDROCHLOROTHIAZIDE 12.5 MG CAPSULE (FP) PO SCH (10:24)
[2021-09-07] MEDS: THIAMINE HCL 100 MG TABLET (FP) PO SCH (22:20)
[2021-09-07] MEDS: MELATONIN 5 MG TABLETS PO SCH (22:20)
[2021-09-08] MEDS: hydrOXYzine PAMOATE 25 MG CAPSULE (FP) PO SCH ×5 (05:53→22:14)
[2021-09-08] MEDS: chlordiazePOXIDE HCL 10 MG CAPSULE PO SCH ×2 (05:53→17:28)
[2021-09-08] MEDS: PRENATAL VITAMINS W/ FOLIC ACID TABLET (FP) PO SCH (10:28)
[2021-09-08] MEDS: HYDROCHLOROTHIAZIDE 12.5 MG CAPSULE (FP) PO SCH (10:42)
[2021-09-08] MEDS: METHOCARBAMOL 500 MG TABLET PO PRN (22:13)
[2021-09-08] MEDS: MELATONIN 5 MG TABLETS PO SCH (22:14)
[2021-09-08] MEDS: THIAMINE HCL 100 MG TABLET (FP) PO SCH (22:14)
[2021-09-09] MEDS ORDERED: chlordiazePOXIDE HCL 10 MG CAPSULE PO ONE (05:00)
[2021-09-09 06:27] VITALS: BP 112/75; PULSE 70; TEMP 97.8
[2021-09-09] MEDS: hydrOXYzine PAMOATE 25 MG CAPSULE (FP) PO SCH ×2 (06:38→09:20)
[2021-09-09] MEDS: PRENATAL VITAMINS W/ FOLIC ACID TABLET (FP) PO SCH (09:17)
[2021-09-09] MEDS: HYDROCHLOROTHIAZIDE 12.5 MG CAPSULE (FP) PO SCH (09:17)
== END 2021-09-09 09:22 | disposition home or self-care (01) | DRG 897 ==
LOC: YASAS 13:02 → Y6N 19:31
PROVIDERS: ADMIT Allergy & Immunology; ATTEND Allergy & Immunology
PROC: HZ2ZZZZ Detoxification Services for Substance Abuse Treatment (ICD-10-PCS; principal; 2021-09-04)
DX: F10.230 Alcohol dependence with withdrawal, uncomplicated (principal); F14.10 Cocaine abuse, uncomplicated; F12.20 Cannabis dependence, uncomplicated; F17.210 Nicotine dependence, cigarettes, uncomplicated; F20.9 Schizophrenia, unspecified; G62.9 Polyneuropathy, unspecified; I10 Essential (primary) hypertension; H54.62 Unqualified visual loss, left eye, normal vision right eye; K21.9 Gastro-esophageal reflux disease without esophagitis; M47.819 Spondylosis without myelopathy or radiculopathy, site unspecified
CPT/HCPCS: 36415; 80053; 85027; 86780; 93005; 93010; C9803-CS; U0003; U0005

== ENCOUNTER 2022-02-19 14:39 | Inpatient (IN) | payer OTHER ==
[2022-02-19 15:48] VITALS: BMI 22.6
[2022-02-19] MEDS ORDERED: BENZOCAINE/MENTHOL (CHLORASEPTIC ) LOZENGE MM PRN (19:20)
[2022-02-19] MEDS ORDERED: NICOTINE 10 MG CARTRIDGE (INHALER) IH PRN (19:20)
[2022-02-19] MEDS ORDERED: MAG HYDROX/AL HYDROX/SIMETH 30 ML UNIT-DOSE CUP PO PRN (19:20)
[2022-02-19] MEDS ORDERED: MAGNESIUM CITRATE 300 ML BOTTLE PO PRN (19:20)
[2022-02-19] MEDS ORDERED: ACETAMINOPHEN 325 MG TABLET (FP) PO PRN ×2 (19:20)
[2022-02-19] MEDS ORDERED: DICYCLOMINE HCL 10 MG CAPSULE PO PRN (19:20)
[2022-02-19] MEDS ORDERED: IBUPROFEN 600 MG TABLET (FP) PO PRN (19:20)
[2022-02-19] MEDS ORDERED: IBUPROFEN 400 MG TABLET (FP) PO PRN (19:20)
[2022-02-19] MEDS ORDERED: LOPERAMIDE HCL 2 MG CAPSULE PO PRN (19:20)
[2022-02-19] MEDS ORDERED: ONDANSETRON *ODT* 4 MG TABLET SL PRN (19:20)
[2022-02-19] MEDS ORDERED: MAGNESIUM HYDROX 2400MG/30ML ORAL SUSPENSION 30 ML CUP PO PRN (19:20)
[2022-02-19] MEDS ORDERED: BISMUTH SUBSALICYLATE 524 MG/30 ML PO PRN (19:20)
[2022-02-19] MEDS ORDERED: NALOXONE HCL (KLOXXADO) 8 MG SPRAY NS PRN (19:20)
[2022-02-19] MEDS ORDERED: chlordiazePOXIDE HCL 25 MG CAPSULE PO PRN (19:20)
[2022-02-19] MEDS: chlordiazePOXIDE HCL 25 MG CAPSULE PO SCH (22:29)
[2022-02-19] MEDS: THIAMINE HCL 100 MG TABLET (FP) PO SCH (22:30)
[2022-02-19] MEDS: MELATONIN 5 MG TABLETS PO SCH (22:30)
[2022-02-19] MEDS: hydrOXYzine PAMOATE 25 MG CAPSULE (FP) PO SCH (22:30)
[2022-02-19] MEDS ORDERED: LISINOPRIL 5 MG TABLET PO ONE (23:03)
[2022-02-20] MEDS: chlordiazePOXIDE HCL 25 MG CAPSULE PO SCH ×4 (07:48→23:00)
[2022-02-20] MEDS: hydrOXYzine PAMOATE 25 MG CAPSULE (FP) PO SCH ×5 (07:49→22:59)
[2022-02-20] MEDS: HYDROCHLOROTHIAZIDE 12.5 MG CAPSULE (FP) PO SCH (10:38)
[2022-02-20] MEDS: PRENATAL VITAMINS W/ FOLIC ACID TABLET (FP) PO SCH (10:38)
[2022-02-20 10:46] LABS: CALCIUM 8.6 mg/dL (8.5-10.1)
[2022-02-20 10:47] LABS: ALBUMIN 3.4 g/dl (3.4-5.0); BLOOD UREA NITROGEN 18.1 mg/dL (7-18)
[2022-02-20 10:50] LABS: CREATININE 1.1 mg/dL (0.55-1.3)
[2022-02-20 10:51] LABS: BILIRUBIN,TOTAL 0.6 mg/dL (0.2-1); HEMATOCRIT 40.8 % (35.4-49); HEMOGLOBIN 13.8 GM/dL (11.7-16.9); MCH 29.1 pg (25.7-33.7); MCHC 33.7 g/dl (32.0-35.9); MEAN CELL VOLUME 86.1 fl (80-96); MEAN PLT VOLUME 8.6 fl (7.5-11.1); PLATELET COUNT 257 10^3/uL (134-434); RBC 4.74 M/mm3 (4.00-5.60); RDW 14.2 % (11.9-15.9); WHITE BLOOD COUNT 3.9 K/mm3 (4.0-10.0)
[2022-02-20] MEDS: MELATONIN 5 MG TABLETS PO SCH (22:59)
[2022-02-20] MEDS: THIAMINE HCL 100 MG TABLET (FP) PO SCH (23:00)
[2022-02-21] MEDS: chlordiazePOXIDE HCL 25 MG CAPSULE PO SCH ×4 (06:16→23:25)
[2022-02-21] MEDS: hydrOXYzine PAMOATE 25 MG CAPSULE (FP) PO SCH ×5 (06:17→23:24)
[2022-02-21] MEDS: METHOCARBAMOL 500 MG TABLET PO PRN ×2 (06:20→11:39)
[2022-02-21] MEDS: PRENATAL VITAMINS W/ FOLIC ACID TABLET (FP) PO SCH (10:40)
[2022-02-21] MEDS: HYDROCHLOROTHIAZIDE 12.5 MG CAPSULE (FP) PO SCH (11:04)
[2022-02-21] MEDS: THIAMINE HCL 100 MG TABLET (FP) PO SCH (23:24)
[2022-02-21] MEDS: MELATONIN 5 MG TABLETS PO SCH (23:24)
[2022-02-22] MEDS ORDERED: chlordiazePOXIDE HCL 10 MG CAPSULE PO PRN
[2022-02-22] MEDS: chlordiazePOXIDE HCL 10 MG CAPSULE PO SCH ×4 (06:30→23:27)
[2022-02-22] MEDS: hydrOXYzine PAMOATE 25 MG CAPSULE (FP) PO SCH ×5 (06:44→23:27)
[2022-02-22] MEDS: HYDROCHLOROTHIAZIDE 12.5 MG CAPSULE (FP) PO SCH (11:12)
[2022-02-22] MEDS: PRENATAL VITAMINS W/ FOLIC ACID TABLET (FP) PO SCH (11:12)
[2022-02-22] MEDS: THIAMINE HCL 100 MG TABLET (FP) PO SCH (23:27)
[2022-02-22] MEDS: MELATONIN 5 MG TABLETS PO SCH (23:49)
[2022-02-23] MEDS: hydrOXYzine PAMOATE 25 MG CAPSULE (FP) PO SCH ×5 (06:13→22:45)
[2022-02-23] MEDS: chlordiazePOXIDE HCL 10 MG CAPSULE PO SCH ×2 (06:13→18:00)
[2022-02-23] MEDS: HYDROCHLOROTHIAZIDE 12.5 MG CAPSULE (FP) PO SCH (11:55)
[2022-02-23] MEDS: PRENATAL VITAMINS W/ FOLIC ACID TABLET (FP) PO SCH (11:56)
[2022-02-23] MEDS: MELATONIN 5 MG TABLETS PO SCH (22:45)
[2022-02-23] MEDS: THIAMINE HCL 100 MG TABLET (FP) PO SCH (22:45)
[2022-02-24] MEDS ORDERED: chlordiazePOXIDE HCL 10 MG CAPSULE PO ONE (05:00)
[2022-02-24] MEDS: hydrOXYzine PAMOATE 25 MG CAPSULE (FP) PO SCH (06:02)
[2022-02-24 06:11] VITALS: BP 126/81; PULSE 72; RESP 18; TEMP 97.7
== END 2022-02-24 09:15 | disposition home or self-care (01) | DRG 896 ==
LOC: YASAS 14:39 → Y3N 19:57 → Y6N 02-20 23:03
PROVIDERS: ADMIT Allergy & Immunology; ATTEND Surgery
PROC: HZ2ZZZZ Detoxification Services for Substance Abuse Treatment (ICD-10-PCS; principal; 2022-02-19)
DX: F10.230 Alcohol dependence with withdrawal, uncomplicated (principal); U07.1 COVID-19; F14.20 Cocaine dependence, uncomplicated; F12.20 Cannabis dependence, uncomplicated; F17.210 Nicotine dependence, cigarettes, uncomplicated; I10 Essential (primary) hypertension; H54.62 Unqualified visual loss, left eye, normal vision right eye
CPT/HCPCS: 36415; 80053; 85027; 86780; C9803-CS; U0003; U0005

== ENCOUNTER 2022-03-23 13:00 | Inpatient (IN) | payer OTHER ==
[2022-03-23 13:59] VITALS: BMI 21.9
[2022-03-23] MEDS ORDERED: LOPERAMIDE HCL 2 MG CAPSULE PO PRN (14:59)
[2022-03-23] MEDS ORDERED: DICYCLOMINE HCL 10 MG CAPSULE PO PRN (14:59)
[2022-03-23] MEDS ORDERED: ONDANSETRON *ODT* 4 MG TABLET SL PRN (14:59)
[2022-03-23] MEDS ORDERED: MAGNESIUM CITRATE 300 ML BOTTLE PO PRN (14:59)
[2022-03-23] MEDS ORDERED: MAGNESIUM HYDROX 2400MG/30ML ORAL SUSPENSION 30 ML CUP PO PRN (14:59)
[2022-03-23] MEDS ORDERED: IBUPROFEN 600 MG TABLET (FP) PO PRN (14:59)
[2022-03-23] MEDS ORDERED: NALOXONE HCL (KLOXXADO) 8 MG SPRAY NS PRN (14:59)
[2022-03-23] MEDS ORDERED: NICOTINE 10 MG CARTRIDGE (INHALER) IH PRN (14:59)
[2022-03-23] MEDS ORDERED: BISMUTH SUBSALICYLATE 262 MG/15 ML BTL PO PRN (14:59)
[2022-03-23] MEDS ORDERED: MAG HYDROX/AL HYDROX/SIMETH 30 ML UNIT-DOSE CUP PO PRN (14:59)
[2022-03-23] MEDS ORDERED: BENZOCAINE/MENTHOL (CHLORASEPTIC ) LOZENGE MM PRN (14:59)
[2022-03-23] MEDS ORDERED: IBUPROFEN 400 MG TABLET (FP) PO PRN (14:59)
[2022-03-23] MEDS ORDERED: ACETAMINOPHEN 325 MG TABLET (FP) PO PRN ×2 (14:59)
[2022-03-23] MEDS: MELATONIN 5 MG TABLETS PO SCH (22:31)
[2022-03-23] MEDS: THIAMINE HCL 100 MG TABLET (FP) PO SCH (22:31)
[2022-03-23] MEDS: METHOCARBAMOL 500 MG TABLET PO PRN (22:33)
[2022-03-24] MEDS ORDERED: chlordiazePOXIDE HCL 25 MG CAPSULE PO PRN (10:12)
[2022-03-24] MEDS: METHOCARBAMOL 500 MG TABLET PO PRN (10:18)
[2022-03-24] MEDS: HYDROCHLOROTHIAZIDE 12.5 MG CAPSULE (FP) PO SCH (10:18)
[2022-03-24] MEDS: PRENATAL VITAMINS W/ FOLIC ACID TABLET (FP) PO SCH (10:19)
[2022-03-24] MEDS: chlordiazePOXIDE HCL 25 MG CAPSULE PO SCH ×3 (10:54→22:08)
[2022-03-24 15:23] LABS: HEMATOCRIT 39.9 % (35.4-49); HEMOGLOBIN 13.2 GM/dL (11.7-16.9); MCH 28.4 pg (25.7-33.7); MEAN CELL VOLUME 86.3 fl (80-96); MEAN PLT VOLUME 8.7 fl (7.5-11.1); PLATELET COUNT 240 10^3/uL (134-434); RBC 4.62 M/mm3 (4.00-5.60); RDW 14.3 % (11.9-15.9); WHITE BLOOD COUNT 5.1 K/mm3 (4.0-10.0)
[2022-03-24 17:46] LABS: ALBUMIN 3.2 g/dl (3.4-5.0)
[2022-03-24 17:47] LABS: CALCIUM 8.7 mg/dL (8.5-10.1)
[2022-03-24 17:49] LABS: CREATININE 1.1 mg/dL (0.55-1.3)
[2022-03-24 17:50] LABS: BILIRUBIN,TOTAL 0.7 mg/dL (0.2-1); TOT PROT 5.9 g/dl (6.4-8.2)
[2022-03-24] MEDS: THIAMINE HCL 100 MG TABLET (FP) PO SCH (22:08)
[2022-03-24] MEDS: MELATONIN 5 MG TABLETS PO SCH (22:08)
[2022-03-25] MEDS: chlordiazePOXIDE HCL 25 MG CAPSULE PO SCH ×4 (05:19→22:11)
[2022-03-25] MEDS: HYDROCHLOROTHIAZIDE 12.5 MG CAPSULE (FP) PO SCH (10:12)
[2022-03-25] MEDS: hydrOXYzine PAMOATE 25 MG CAPSULE (FP) PO PRN (10:12)
[2022-03-25] MEDS: PRENATAL VITAMINS W/ FOLIC ACID TABLET (FP) PO SCH (10:12)
[2022-03-25] MEDS: METHOCARBAMOL 500 MG TABLET PO PRN (10:13)
[2022-03-25] MEDS: THIAMINE HCL 100 MG TABLET (FP) PO SCH (22:11)
[2022-03-25] MEDS: MELATONIN 5 MG TABLETS PO SCH (22:11)
[2022-03-26] MEDS: chlordiazePOXIDE HCL 25 MG CAPSULE PO SCH ×4 (05:12→22:15)
[2022-03-26] MEDS: METHOCARBAMOL 500 MG TABLET PO PRN (10:12)
[2022-03-26] MEDS: hydrOXYzine PAMOATE 25 MG CAPSULE (FP) PO PRN (10:12)
[2022-03-26] MEDS: PRENATAL VITAMINS W/ FOLIC ACID TABLET (FP) PO SCH (10:12)
[2022-03-26] MEDS: HYDROCHLOROTHIAZIDE 12.5 MG CAPSULE (FP) PO SCH (10:12)
[2022-03-26] MEDS: MELATONIN 5 MG TABLETS PO SCH (22:16)
[2022-03-26] MEDS: THIAMINE HCL 100 MG TABLET (FP) PO SCH (22:16)
[2022-03-27] MEDS ORDERED: chlordiazePOXIDE HCL 10 MG CAPSULE PO PRN
[2022-03-27] MEDS: chlordiazePOXIDE HCL 10 MG CAPSULE PO SCH ×4 (05:03→22:15)
[2022-03-27] MEDS: HYDROCHLOROTHIAZIDE 12.5 MG CAPSULE (FP) PO SCH (10:20)
[2022-03-27] MEDS: PRENATAL VITAMINS W/ FOLIC ACID TABLET (FP) PO SCH (10:20)
[2022-03-27] MEDS: METHOCARBAMOL 500 MG TABLET PO PRN ×2 (10:22→17:52)
[2022-03-27] MEDS: THIAMINE HCL 100 MG TABLET (FP) PO SCH (22:15)
[2022-03-27] MEDS: MELATONIN 5 MG TABLETS PO SCH (22:15)
[2022-03-28] MEDS: chlordiazePOXIDE HCL 10 MG CAPSULE PO SCH ×2 (04:39→17:58)
[2022-03-28] MEDS: HYDROCHLOROTHIAZIDE 12.5 MG CAPSULE (FP) PO SCH (10:21)
[2022-03-28] MEDS: PRENATAL VITAMINS W/ FOLIC ACID TABLET (FP) PO SCH (10:22)
[2022-03-28] MEDS: METHOCARBAMOL 500 MG TABLET PO PRN (17:58)
[2022-03-28] MEDS: hydrOXYzine PAMOATE 25 MG CAPSULE (FP) PO PRN (22:12)
[2022-03-28] MEDS: MELATONIN 5 MG TABLETS PO SCH (22:12)
[2022-03-28] MEDS: THIAMINE HCL 100 MG TABLET (FP) PO SCH (22:12)
[2022-03-29] MEDS ORDERED: chlordiazePOXIDE HCL 10 MG CAPSULE PO ONE (05:00)
[2022-03-29 09:35] VITALS: BP 158/98; PULSE 87; RESP 17; TEMP 97.8
[2022-03-29] MEDS: PRENATAL VITAMINS W/ FOLIC ACID TABLET (FP) PO SCH (10:16)
[2022-03-29] MEDS: HYDROCHLOROTHIAZIDE 12.5 MG CAPSULE (FP) PO SCH (10:17)
== END 2022-03-29 12:10 | disposition home or self-care (01) | DRG 897 ==
LOC: YASAS 13:00 → Y6N 16:34
PROVIDERS: ADMIT Allergy & Immunology; ATTEND Surgery
PROC: HZ2ZZZZ Detoxification Services for Substance Abuse Treatment (ICD-10-PCS; principal; 2022-03-23)
DX: F10.230 Alcohol dependence with withdrawal, uncomplicated (principal); F14.20 Cocaine dependence, uncomplicated; F12.20 Cannabis dependence, uncomplicated; F17.210 Nicotine dependence, cigarettes, uncomplicated; H54.62 Unqualified visual loss, left eye, normal vision right eye; I10 Essential (primary) hypertension; K21.9 Gastro-esophageal reflux disease without esophagitis
CPT/HCPCS: 36415; 80053; 85027; 86780; 87811; C9803-CS; U0003; U0005

== ENCOUNTER 2022-06-10 10:29 | Inpatient (IN) | payer OTHER ==
[2022-06-10] MEDS ORDERED: hydrOXYzine PAMOATE 25 MG CAPSULE (FP) PO PRN (12:48)
[2022-06-10] MEDS ORDERED: MAG HYDROX/AL HYDROX/SIMETH 30 ML UNIT-DOSE CUP PO PRN (12:48)
[2022-06-10] MEDS ORDERED: MAGNESIUM HYDROX 2400MG/30ML ORAL SUSPENSION 30 ML CUP PO PRN (12:48)
[2022-06-10] MEDS ORDERED: ONDANSETRON *ODT* 4 MG TABLET SL PRN (12:48)
[2022-06-10] MEDS ORDERED: METHOCARBAMOL 500 MG TABLET PO PRN (12:48)
[2022-06-10] MEDS ORDERED: NICOTINE 10 MG CARTRIDGE (INHALER) IH PRN (12:48)
[2022-06-10] MEDS ORDERED: DICYCLOMINE HCL 10 MG CAPSULE PO PRN (12:48)
[2022-06-10] MEDS ORDERED: LOPERAMIDE HCL 2 MG CAPSULE PO PRN (12:48)
[2022-06-10] MEDS ORDERED: ACETAMINOPHEN 325 MG TABLET (FP) PO PRN ×2 (12:48)
[2022-06-10] MEDS ORDERED: BENZOCAINE/MENTHOL (CHLORASEPTIC ) LOZENGE MM PRN (12:48)
[2022-06-10] MEDS ORDERED: POLYETHYLENE GLYCOL (HEALTHYLAX) 3350 17 GM PACKET PO PRN (12:48)
[2022-06-10] MEDS ORDERED: NALOXONE HCL (KLOXXADO) 8 MG SPRAY NS PRN (12:48)
[2022-06-10] MEDS ORDERED: IBUPROFEN 400 MG TABLET (FP) PO PRN (12:48)
[2022-06-10] MEDS ORDERED: chlordiazePOXIDE HCL 25 MG CAPSULE PO PRN (12:48)
[2022-06-10] MEDS ORDERED: BISMUTH SUBSALICYLATE 524 MG/30 ML PO PRN (12:48)
[2022-06-10] MEDS: chlordiazePOXIDE HCL 25 MG CAPSULE PO SCH ×2 (17:40→22:32)
[2022-06-10 18:03] LABS: HEMATOCRIT 41.2 % (35.4-49); MCH 27.4 pg (25.7-33.7); MCHC 31.6 g/dl (32.0-35.9); MEAN CELL VOLUME 86.6 fl (80-96); MEAN PLT VOLUME 9.1 fl (7.5-11.1); PLATELET COUNT 290 10^3/uL (134-434); RBC 4.76 M/mm3 (4.00-5.60); RDW 14.8 % (11.9-15.9); WHITE BLOOD COUNT 4.8 K/mm3 (4.0-10.0)
[2022-06-10 18:07] LABS: ALBUMIN 3.7 g/dl (3.4-5.0); BLOOD UREA NITROGEN 24.8 mg/dL (7-18); CALCIUM 9.2 mg/dL (8.5-10.1)
[2022-06-10 18:10] LABS: CREATININE 1.3 mg/dL (0.55-1.3)
[2022-06-10 18:12] LABS: BILIRUBIN,TOTAL 1.3 mg/dL (0.2-1); TOT PROT 6.9 g/dl (6.4-8.2)
[2022-06-10] MEDS: THIAMINE HCL 100 MG TABLET (FP) PO SCH (22:32)
[2022-06-10] MEDS: MELATONIN 5 MG TABLETS PO SCH (22:32)
[2022-06-11] MEDS: chlordiazePOXIDE HCL 25 MG CAPSULE PO SCH ×4 (05:24→22:36)
[2022-06-11] MEDS: PRENATAL VITAMINS W/ FOLIC ACID TABLET (FP) PO SCH (10:24)
[2022-06-11] MEDS ORDERED: FLU VACC QS2022-23(6MOS UP)/PF 60 MCG/0.5 ML SYRINGE IM ONE (12:00)
[2022-06-11] MEDS: THIAMINE HCL 100 MG TABLET (FP) PO SCH (22:36)
[2022-06-11] MEDS: MELATONIN 5 MG TABLETS PO SCH (22:36)
[2022-06-12] MEDS: chlordiazePOXIDE HCL 25 MG CAPSULE PO SCH ×4 (05:15→22:14)
[2022-06-12] MEDS: PRENATAL VITAMINS W/ FOLIC ACID TABLET (FP) PO SCH (10:12)
[2022-06-12] MEDS: MELATONIN 5 MG TABLETS PO SCH (22:12)
[2022-06-12] MEDS: THIAMINE HCL 100 MG TABLET (FP) PO SCH (22:12)
[2022-06-13] MEDS ORDERED: chlordiazePOXIDE HCL 10 MG CAPSULE PO PRN
[2022-06-13] MEDS: chlordiazePOXIDE HCL 10 MG CAPSULE PO SCH ×4 (05:20→22:28)
[2022-06-13] MEDS: PRENATAL VITAMINS W/ FOLIC ACID TABLET (FP) PO SCH (10:07)
[2022-06-13] MEDS: MELATONIN 5 MG TABLETS PO SCH (22:28)
[2022-06-13] MEDS: THIAMINE HCL 100 MG TABLET (FP) PO SCH (22:28)
[2022-06-13] MEDS: IBUPROFEN 600 MG TABLET (FP) PO PRN (22:29)
[2022-06-14] MEDS: chlordiazePOXIDE HCL 10 MG CAPSULE PO SCH ×2 (05:56→17:44)
[2022-06-14] MEDS: PRENATAL VITAMINS W/ FOLIC ACID TABLET (FP) PO SCH (10:14)
[2022-06-14] MEDS: MELATONIN 5 MG TABLETS PO SCH (22:11)
[2022-06-14] MEDS: THIAMINE HCL 100 MG TABLET (FP) PO SCH (22:11)
[2022-06-15] MEDS ORDERED: chlordiazePOXIDE HCL 10 MG CAPSULE PO ONE (05:00)
[2022-06-15] MEDS: IBUPROFEN 600 MG TABLET (FP) PO PRN (05:25)
[2022-06-15 09:17] VITALS: BP 146/101; PULSE 82; RESP 18; TEMP 97.5
== END 2022-06-15 09:51 | disposition home or self-care (01) | DRG 897 ==
LOC: YASAS 10:29 → Y3N 12:59
PROVIDERS: ADMIT Allergy & Immunology; ATTEND Surgery
PROC: HZ2ZZZZ Detoxification Services for Substance Abuse Treatment (ICD-10-PCS; principal; 2022-06-10)
DX: F10.230 Alcohol dependence with withdrawal, uncomplicated (principal); F14.20 Cocaine dependence, uncomplicated; F12.20 Cannabis dependence, uncomplicated; F17.210 Nicotine dependence, cigarettes, uncomplicated; H54.62 Unqualified visual loss, left eye, normal vision right eye; I10 Essential (primary) hypertension
CPT/HCPCS: 36415; 80053; 82140; 85027; 86780; C9803-CS; U0003; U0005

== ENCOUNTER 2022-11-27 10:23 | Inpatient (IN) | payer BC, OTHER ==
[2022-11-27] MEDS ORDERED: BENZOCAINE/MENTHOL (CHLORASEPTIC ) LOZENGE MM PRN (11:23)
[2022-11-27] MEDS ORDERED: ONDANSETRON *ODT* 4 MG TABLET SL PRN (11:23)
[2022-11-27] MEDS ORDERED: BISMUTH SUBSALICYLATE 262 MG/15 ML BTL PO PRN (11:23)
[2022-11-27] MEDS ORDERED: POLYETHYLENE GLYCOL (HEALTHYLAX) 3350 17 GM PACKET PO PRN (11:23)
[2022-11-27] MEDS ORDERED: IBUPROFEN 600 MG TABLET (FP) PO PRN (11:23)
[2022-11-27] MEDS ORDERED: NALOXONE HCL (KLOXXADO) 8 MG SPRAY NS PRN (11:23)
[2022-11-27] MEDS ORDERED: NICOTINE POLACRILEX 2 MG GUM BUC PRN (11:23)
[2022-11-27] MEDS ORDERED: METHOCARBAMOL 500 MG TABLET PO PRN (11:23)
[2022-11-27] MEDS ORDERED: ACETAMINOPHEN 325 MG TABLET (FP) PO PRN (11:23)
[2022-11-27] MEDS ORDERED: hydrOXYzine PAMOATE 25 MG CAPSULE (FP) PO PRN (11:23)
[2022-11-27] MEDS ORDERED: DICYCLOMINE HCL 10 MG CAPSULE PO PRN (11:23)
[2022-11-27] MEDS ORDERED: BENZONATATE 200 MG CAPSULE PO PRN (11:23)
[2022-11-27] MEDS ORDERED: NALOXONE HCL 0.4 MG/ML VIAL IM PRN (11:23)
[2022-11-27] MEDS ORDERED: IBUPROFEN 400 MG TABLET (FP) PO PRN (11:23)
[2022-11-27] MEDS ORDERED: MAG HYDROX/AL HYDROX/SIMETH 30 ML UNIT-DOSE CUP PO PRN (11:23)
[2022-11-27] MEDS ORDERED: MAGNESIUM HYDROX 2400MG/30ML ORAL SUSPENSION 30 ML CUP PO PRN (11:23)
[2022-11-27] MEDS ORDERED: LOPERAMIDE HCL 2 MG CAPSULE PO PRN (11:23)
[2022-11-27] MEDS ORDERED: guaiFENesin 600 MG TABLET.ER (FP) PO PRN (11:23)
[2022-11-27] MEDS: HYDROCHLOROTHIAZIDE 12.5 MG CAPSULE (FP) PO SCH (13:54)
[2022-11-27 14:39] LABS: HEMATOCRIT 40.3 % (35.4-49); HEMOGLOBIN 13.4 GM/dL (11.7-16.9); MCHC 33.3 g/dl (32.0-35.9); MEAN CELL VOLUME 84.2 fl (80-96); MEAN PLT VOLUME 8.3 fl (7.5-11.1); PLATELET COUNT 273 10^3/uL (134-434); RBC 4.79 M/mm3 (4.00-5.60); RDW 14.4 % (11.9-15.9); WHITE BLOOD COUNT 5.9 K/mm3 (4.0-10.0)
[2022-11-27 14:40] LABS: POTASSIUM 3.7 mmol/L (3.5-5.1)
[2022-11-27 14:48] LABS: CREATININE 1.3 mg/dL (0.55-1.3)
[2022-11-27 14:50] LABS: BILIRUBIN,TOTAL 1.2 mg/dL (0.2-1); TOT PROT 6.7 g/dl (6.4-8.2)
[2022-11-27 14:54] LABS: ALBUMIN 3.6 g/dl (3.4-5.0)
[2022-11-27 14:56] LABS: BLOOD UREA NITROGEN 15.4 mg/dL (7-18); CALCIUM 9.2 mg/dL (8.5-10.1)
[2022-11-27] MEDS: THIAMINE HCL 100 MG TABLET (FP) PO SCH (22:36)
[2022-11-27] MEDS: MELATONIN 5 MG TABLETS PO SCH (22:36)
[2022-11-28] MEDS: HYDROCHLOROTHIAZIDE 12.5 MG CAPSULE (FP) PO SCH (10:31)
[2022-11-28] MEDS: PRENATAL VITAMINS W/ FOLIC ACID TABLET (FP) PO SCH (10:31)
[2022-11-28] MEDS: THIAMINE HCL 100 MG TABLET (FP) PO SCH (22:25)
[2022-11-28] MEDS: MELATONIN 5 MG TABLETS PO SCH (22:25)
[2022-11-29 08:58] VITALS: BP 159/87; PULSE 63; RESP 17; TEMP 97.8
[2022-11-29] MEDS: PRENATAL VITAMINS W/ FOLIC ACID TABLET (FP) PO SCH (10:07)
[2022-11-29] MEDS: HYDROCHLOROTHIAZIDE 12.5 MG CAPSULE (FP) PO SCH (10:08)
== END 2022-11-29 12:26 | disposition other institution (70) | DRG 897 ==
LOC: YASAS 10:23 → Y3N 12:37
PROVIDERS: ADMIT Allergy & Immunology; ATTEND Surgery
PROC: HZ2ZZZZ Detoxification Services for Substance Abuse Treatment (ICD-10-PCS; principal; 2022-11-27)
DX: F10.230 Alcohol dependence with withdrawal, uncomplicated (principal); F14.20 Cocaine dependence, uncomplicated; F12.20 Cannabis dependence, uncomplicated; F17.210 Nicotine dependence, cigarettes, uncomplicated; I10 Essential (primary) hypertension; K21.9 Gastro-esophageal reflux disease without esophagitis
CPT/HCPCS: 36415; 80053; 82140; 85027; 86780; 87635

== ENCOUNTER 2023-06-25 12:48 | Inpatient (IN) | payer OTHER ==
[2023-06-25 13:15] VITALS: BMI 20.5
[2023-06-25] MEDS ORDERED: BISMUTH SUBSALICYLATE 524 MG/30 ML PO PRN (15:08)
[2023-06-25] MEDS ORDERED: NICOTINE POLACRILEX 2 MG GUM BUC PRN (15:08)
[2023-06-25] MEDS ORDERED: DICYCLOMINE HCL 10 MG CAPSULE PO PRN (15:08)
[2023-06-25] MEDS ORDERED: guaiFENesin 600 MG TABLET.ER (FP) PO PRN (15:08)
[2023-06-25] MEDS ORDERED: BENZOCAINE/MENTHOL (CHLORASEPTIC ) LOZENGE MM PRN (15:08)
[2023-06-25] MEDS ORDERED: ONDANSETRON *ODT* 4 MG TABLET SL PRN (15:08)
[2023-06-25] MEDS ORDERED: MAG HYDROX/AL HYDROX/SIMETH 30 ML UNIT-DOSE CUP PO PRN (15:08)
[2023-06-25] MEDS ORDERED: METHOCARBAMOL 500 MG TABLET PO PRN (15:08)
[2023-06-25] MEDS ORDERED: BENZONATATE 200 MG CAPSULE PO PRN (15:08)
[2023-06-25] MEDS ORDERED: LOPERAMIDE HCL 2 MG CAPSULE PO PRN (15:08)
[2023-06-25] MEDS ORDERED: P-EPHED 60MG/TRIPROLIDI 2.5MG TABLET PO PRN (15:08)
[2023-06-25] MEDS ORDERED: IBUPROFEN 400 MG TABLET (FP) PO PRN (15:08)
[2023-06-25] MEDS ORDERED: ACETAMINOPHEN 325 MG TABLET (FP) PO PRN (15:08)
[2023-06-25] MEDS ORDERED: IBUPROFEN 600 MG TABLET (FP) PO PRN (15:08)
[2023-06-25] MEDS ORDERED: POLYETHYLENE GLYCOL (HEALTHYLAX) 3350 17 GM PACKET PO PRN (15:08)
[2023-06-25] MEDS ORDERED: MAGNESIUM HYDROX 2400MG/30ML ORAL SUSPENSION 30 ML CUP PO PRN (15:08)
[2023-06-25] MEDS: THIAMINE HCL 100 MG TABLET (FP) PO SCH (22:21)
[2023-06-25] MEDS: MELATONIN 5 MG TABLETS PO SCH (22:21)
[2023-06-26] MEDS: PRENATAL VITAMINS W/ FOLIC ACID TABLET (FP) PO SCH (10:23)
[2023-06-26 10:42] LABS: HEMATOCRIT 38.4 % (35.4-49); HEMOGLOBIN 12.4 GM/dL (11.7-16.9); MCH 27.4 pg (25.7-33.7); MCHC 32.3 g/dl (32.0-35.9); MEAN PLT VOLUME 8.2 fl (7.5-11.1); PLATELET COUNT 272 10^3/uL (134-434); RBC 4.52 M/mm3 (4.00-5.60); RDW 15.2 % (11.9-15.9); WHITE BLOOD COUNT 4.2 K/mm3 (4.0-10.0)
[2023-06-26 11:02] LABS: CHLORIDE 106 mmol/L (98-107); POTASSIUM 4.4 mmol/L (3.5-5.1); SODIUM 139 mmol/L (136-145)
[2023-06-26 11:04] LABS: CALCIUM 8.5 mg/dL (8.5-10.1)
[2023-06-26 11:05] LABS: ALBUMIN 2.9 g/dl (3.4-5.0); ANION GAP 4 mmol/L (4-13); BLOOD UREA NITROGEN 13.1 mg/dL (7-18); CO2 29 mmol/L (21-32); GLUCOSE,RANDOM 80 mg/dL (74-106)
[2023-06-26 11:08] LABS: SGOT/AST 12 U/L (15-37); SGPT/ALT 16 U/L (13-61)
[2023-06-26 11:10] LABS: BILIRUBIN,TOTAL 0.6 mg/dL (0.2-1); TOT PROT 5.8 g/dl (6.4-8.2)
[2023-06-26 11:11] LABS: ALK PHOS 87 U/L (45-117)
[2023-06-26] MEDS: THIAMINE HCL 100 MG TABLET (FP) PO SCH (22:23)
[2023-06-26] MEDS: MELATONIN 5 MG TABLETS PO SCH (22:23)
[2023-06-27] MEDS: PRENATAL VITAMINS W/ FOLIC ACID TABLET (FP) PO SCH (10:02)
[2023-06-27] MEDS: THIAMINE HCL 100 MG TABLET (FP) PO SCH (22:11)
[2023-06-27] MEDS: MELATONIN 5 MG TABLETS PO SCH (22:11)
[2023-06-28] MEDS: PRENATAL VITAMINS W/ FOLIC ACID TABLET (FP) PO SCH (09:18)
[2023-06-28 09:29] VITALS: BP 156/100; PULSE 98; RESP 16; TEMP 98.6
== END 2023-06-28 09:05 | disposition home or self-care (01) | DRG 897 ==
LOC: YASAS 12:48 → Y3N 15:37
PROVIDERS: ADMIT Allergy & Immunology; ATTEND Allergy & Immunology
PROC: HZ2ZZZZ Detoxification Services for Substance Abuse Treatment (ICD-10-PCS; principal; 2023-06-25)
DX: F10.20 Alcohol dependence, uncomplicated (principal); F14.20 Cocaine dependence, uncomplicated; F17.210 Nicotine dependence, cigarettes, uncomplicated; I10 Essential (primary) hypertension; K21.9 Gastro-esophageal reflux disease without esophagitis; M15.8 Other polyosteoarthritis
CPT/HCPCS: 36415; 80053; 80307; 85027; 86780; 87635; 87811; Q0162

== ENCOUNTER 2023-08-01 11:09 | Inpatient (IN) | payer OTHER ==
[2023-08-01 11:27] VITALS: BMI 20.5
[2023-08-01] MEDS ORDERED: guaiFENesin 600 MG TABLET.ER (FP) PO PRN (13:54)
[2023-08-01] MEDS ORDERED: LOPERAMIDE HCL 2 MG CAPSULE PO PRN (13:54)
[2023-08-01] MEDS ORDERED: NICOTINE POLACRILEX 2 MG GUM BUC PRN (13:54)
[2023-08-01] MEDS ORDERED: METHOCARBAMOL 500 MG TABLET PO PRN (13:54)
[2023-08-01] MEDS ORDERED: NALOXONE HCL (KLOXXADO) 8 MG SPRAY NS PRN (13:54)
[2023-08-01] MEDS ORDERED: NALOXONE HCL 0.4 MG/ML VIAL IM PRN (13:54)
[2023-08-01] MEDS ORDERED: chlordiazePOXIDE HCL 25 MG CAPSULE PO PRN (13:54)
[2023-08-01] MEDS ORDERED: MAGNESIUM HYDROX 2400MG/30ML ORAL SUSPENSION 30 ML CUP PO PRN (13:54)
[2023-08-01] MEDS ORDERED: BENZONATATE 200 MG CAPSULE PO PRN (13:54)
[2023-08-01] MEDS ORDERED: IBUPROFEN 400 MG TABLET (FP) PO PRN (13:54)
[2023-08-01] MEDS ORDERED: ACETAMINOPHEN 325 MG TABLET (FP) PO PRN (13:54)
[2023-08-01] MEDS ORDERED: BISMUTH SUBSALICYLATE 524 MG/30 ML PO PRN (13:54)
[2023-08-01] MEDS ORDERED: ONDANSETRON *ODT* 4 MG TABLET SL PRN (13:54)
[2023-08-01] MEDS ORDERED: DICYCLOMINE HCL 10 MG CAPSULE PO PRN (13:54)
[2023-08-01] MEDS ORDERED: MAG HYDROX/AL HYDROX/SIMETH 30 ML UNIT-DOSE CUP PO PRN (13:54)
[2023-08-01] MEDS ORDERED: BENZOCAINE/MENTHOL (CHLORASEPTIC ) LOZENGE MM PRN (13:54)
[2023-08-01] MEDS ORDERED: POLYETHYLENE GLYCOL (HEALTHYLAX) 3350 17 GM PACKET PO PRN (13:54)
[2023-08-01] MEDS ORDERED: HYDROCHLOROTHIAZIDE 12.5 MG CAPSULE (FP) ONE (14:56)
[2023-08-01] MEDS: HYDROCHLOROTHIAZIDE 12.5 MG CAPSULE (FP) PO SCH (14:58)
[2023-08-01] MEDS: chlordiazePOXIDE HCL 25 MG CAPSULE PO SCH (17:11)
[2023-08-01] MEDS: MELATONIN 5 MG TABLETS PO SCH (22:41)
[2023-08-01] MEDS: THIAMINE HCL 100 MG TABLET (FP) PO SCH (22:42)
[2023-08-02] MEDS: PRENATAL VITAMINS W/ FOLIC ACID TABLET (FP) PO SCH (10:17)
[2023-08-02] MEDS: IBUPROFEN 600 MG TABLET (FP) PO PRN (10:19)
[2023-08-02 10:47] LABS: CHLORIDE 104 mmol/L (98-107); HEMATOCRIT 35.4 % (35.4-49); HEMOGLOBIN 11.5 GM/dL (11.7-16.9); MCH 27.7 pg (25.7-33.7); MCHC 32.6 g/dl (32.0-35.9); MEAN CELL VOLUME 84.9 fl (80-96); MEAN PLT VOLUME 7.3 fl (7.5-11.1); PLATELET COUNT 390 10^3/uL (134-434); RBC 4.17 M/mm3 (4.00-5.60); RDW 13.8 % (11.9-15.9); SODIUM 140 mmol/L (136-145); WHITE BLOOD COUNT 4.8 K/mm3 (4.0-10.0)
[2023-08-02 10:52] LABS: BLOOD UREA NITROGEN 24.2 mg/dL (7-18); CALCIUM 8.6 mg/dL (8.5-10.1); GLUCOSE,RANDOM 89 mg/dL (74-106)
[2023-08-02 10:53] LABS: ANION GAP 6 mmol/L (4-13); CO2 30 mmol/L (21-32)
[2023-08-02 10:54] LABS: SGPT/ALT 14 U/L (13-61)
[2023-08-02 10:55] LABS: CREATININE 1.1 mg/dL (0.55-1.3)
[2023-08-02 10:56] LABS: SGOT/AST 9 U/L (15-37)
[2023-08-02 10:57] LABS: ALK PHOS 91 U/L (45-117); BILIRUBIN,TOTAL 0.4 mg/dL (0.2-1)
[2023-08-02] MEDS: FLU VACCINE (FLULAVAL) PF 60 MCG/0.5 ML SYRINGE 2023-2024 IM ONE (11:24)
[2023-08-02 12:32] LABS: HIV INTERPRETATION NEGATIVE (NEGATIVE)
[2023-08-02] MEDS: LACTULOSE 20 GM/30 ML UDC (FOR ORAL USE ONLY) PO SCH (17:54)
[2023-08-03] MEDS: chlordiazePOXIDE HCL 25 MG CAPSULE PO SCH (05:32)
[2023-08-04] MEDS ORDERED: chlordiazePOXIDE HCL 10 MG CAPSULE PO PRN
[2023-08-04] MEDS: chlordiazePOXIDE HCL 10 MG CAPSULE PO SCH (05:26)
[2023-08-04] MEDS: hydrOXYzine PAMOATE 25 MG CAPSULE (FP) PO PRN (10:16)
[2023-08-05] MEDS: chlordiazePOXIDE HCL 10 MG CAPSULE PO SCH (05:51)
[2023-08-05 13:22] VITALS: BP 104/69; PULSE 81; RESP 16; TEMP 97.5
[2023-08-06] MEDS ORDERED: chlordiazePOXIDE HCL 10 MG CAPSULE PO ONE (05:00)
== END 2023-08-05 15:56 | disposition home or self-care (01) | DRG 897 ==
LOC: YASAS 11:09 → Y6N 14:54
PROVIDERS: ADMIT Allergy & Immunology; ATTEND Surgery
PROC: HZ2ZZZZ Detoxification Services for Substance Abuse Treatment (ICD-10-PCS; principal; 2023-08-01)
DX: F10.230 Alcohol dependence with withdrawal, uncomplicated (principal); F14.20 Cocaine dependence, uncomplicated; F12.20 Cannabis dependence, uncomplicated; F17.210 Nicotine dependence, cigarettes, uncomplicated; H54.62 Unqualified visual loss, left eye, normal vision right eye; I10 Essential (primary) hypertension; R79.89 Other specified abnormal findings of blood chemistry
CPT/HCPCS: 36415; 80053; 80307; 82140; 84520; 85027; 86780; 87389; 87635; 90686; 93005; 93010; G0008

== ENCOUNTER 2023-08-31 22:36 | Inpatient (IN) | payer OTHER ==
[2023-08-31 23:14] VITALS: BMI 20.5
[2023-08-31] MEDS ORDERED: BISMUTH SUBSALICYLATE 524 MG/30 ML PO PRN (23:43)
[2023-08-31] MEDS ORDERED: BENZONATATE 200 MG CAPSULE PO PRN (23:43)
[2023-08-31] MEDS ORDERED: LOPERAMIDE HCL 2 MG CAPSULE PO PRN (23:43)
[2023-08-31] MEDS ORDERED: DICYCLOMINE HCL 10 MG CAPSULE PO PRN (23:43)
[2023-08-31] MEDS ORDERED: BENZOCAINE/MENTHOL (CHLORASEPTIC ) LOZENGE MM PRN (23:43)
[2023-08-31] MEDS ORDERED: ACETAMINOPHEN 325 MG TABLET (FP) PO PRN (23:43)
[2023-08-31] MEDS ORDERED: MAG HYDROX/AL HYDROX/SIMETH 30 ML UNIT-DOSE CUP PO PRN (23:43)
[2023-08-31] MEDS ORDERED: POLYETHYLENE GLYCOL (HEALTHYLAX) 3350 17 GM PACKET PO PRN (23:43)
[2023-08-31] MEDS ORDERED: NICOTINE POLACRILEX 2 MG GUM BUC PRN (23:43)
[2023-08-31] MEDS ORDERED: MAGNESIUM HYDROX 2400MG/30ML ORAL SUSPENSION 30 ML CUP PO PRN (23:43)
[2023-08-31] MEDS ORDERED: NALOXONE HCL 0.4 MG/ML VIAL IM PRN (23:43)
[2023-08-31] MEDS ORDERED: IBUPROFEN 400 MG TABLET (FP) PO PRN (23:43)
[2023-08-31] MEDS ORDERED: guaiFENesin 600 MG TABLET.ER (FP) PO PRN (23:43)
[2023-08-31] MEDS ORDERED: IBUPROFEN 600 MG TABLET (FP) PO PRN (23:43)
[2023-08-31] MEDS ORDERED: NALOXONE HCL (KLOXXADO) 8 MG SPRAY NS PRN (23:43)
[2023-08-31] MEDS ORDERED: ONDANSETRON *ODT* 4 MG TABLET SL PRN (23:43)
[2023-09-01 09:03] LABS: HEMATOCRIT 35.1 % (35.4-49); HEMOGLOBIN 11.6 GM/dL (11.7-16.9); MCHC 33.1 g/dl (32.0-35.9); MEAN CELL VOLUME 84.6 fl (80-96); MEAN PLT VOLUME 8.1 fl (7.5-11.1); PLATELET COUNT 262 10^3/uL (134-434); RBC 4.15 M/mm3 (4.00-5.60); WHITE BLOOD COUNT 5.4 K/mm3 (4.0-10.0)
[2023-09-01 09:07] LABS: CHLORIDE 107 mmol/L (98-107); POTASSIUM 3.4 mmol/L (3.5-5.1); SODIUM 145 mmol/L (136-145)
[2023-09-01 09:13] LABS: ALBUMIN 3.1 g/dl (3.4-5.0); ANION GAP 6 mmol/L (4-13); BLOOD UREA NITROGEN 20.9 mg/dL (7-18); CALCIUM 8.7 mg/dL (8.5-10.1); CO2 32 mmol/L (21-32)
[2023-09-01 09:14] LABS: GLUCOSE,RANDOM 92 mg/dL (74-106)
[2023-09-01 09:15] LABS: SGPT/ALT 24 U/L (13-61)
[2023-09-01 09:16] LABS: CREATININE 1.1 mg/dL (0.55-1.3); SGOT/AST 16 U/L (15-37)
[2023-09-01 09:17] LABS: BILIRUBIN,TOTAL 0.6 mg/dL (0.2-1); TOT PROT 5.9 g/dl (6.4-8.2)
[2023-09-01 09:18] LABS: ALK PHOS 83 U/L (45-117)
[2023-09-01] MEDS: PRENATAL VITAMINS W/ FOLIC ACID TABLET (FP) PO SCH (09:58)
[2023-09-01] MEDS: HYDROCHLOROTHIAZIDE 12.5 MG CAPSULE (FP) PO SCH (09:58)
[2023-09-01] MEDS: NICOTINE 21 MG/24 HOURS TOPICAL PATCH TD SCH (09:58)
[2023-09-01] MEDS ORDERED: chlordiazePOXIDE HCL 25 MG CAPSULE PO PRN (10:24)
[2023-09-01] MEDS: POTASSIUM CHLORIDE ORAL LIQUID 20 MEQ/15 ML PO ONE (11:10)
[2023-09-01] MEDS: chlordiazePOXIDE HCL 25 MG CAPSULE PO SCH (11:10)
[2023-09-01] MEDS: MELATONIN 5 MG TABLETS PO SCH (22:31)
[2023-09-01] MEDS: THIAMINE HCL 100 MG TABLET (FP) PO SCH (22:32)
[2023-09-01] MEDS: POTASSIUM CHLORIDE ORAL LIQUID 20 MEQ/15 ML PO SCH (22:32)
[2023-09-02 09:46] VITALS: RESP 16
[2023-09-02 13:27] VITALS: BP 129/76; PULSE 84; TEMP 98
[2023-09-03] MEDS ORDERED: chlordiazePOXIDE HCL 25 MG CAPSULE PO SCH (05:00)
[2023-09-04] MEDS ORDERED: chlordiazePOXIDE HCL 10 MG CAPSULE PO PRN
[2023-09-04] MEDS ORDERED: chlordiazePOXIDE HCL 10 MG CAPSULE PO SCH (05:00)
[2023-09-05] MEDS ORDERED: chlordiazePOXIDE HCL 10 MG CAPSULE PO SCH (05:00)
[2023-09-06] MEDS ORDERED: chlordiazePOXIDE HCL 10 MG CAPSULE PO ONE (05:00)
== END 2023-09-02 14:08 | disposition left against medical advice (07) | DRG 894 ==
LOC: YASAS 22:36 → Y6N 09-01 01:09
PROVIDERS: ADMIT Allergy & Immunology; ATTEND Allergy & Immunology
PROC: HZ2ZZZZ Detoxification Services for Substance Abuse Treatment (ICD-10-PCS; principal; 2023-09-01)
DX: F10.230 Alcohol dependence with withdrawal, uncomplicated (principal); F14.20 Cocaine dependence, uncomplicated; F11.20 Opioid dependence, uncomplicated; F19.282 Other psychoactive substance dependence with psychoactive substance-induced sleep disorder; F19.280 Other psychoactive substance dependence with psychoactive substance-induced anxiety disorder; F12.20 Cannabis dependence, uncomplicated; F17.210 Nicotine dependence, cigarettes, uncomplicated; H54.62 Unqualified visual loss, left eye, normal vision right eye; I10 Essential (primary) hypertension; E11.9 Type 2 diabetes mellitus without complications; G62.9 Polyneuropathy, unspecified; R79.89 Other specified abnormal findings of blood chemistry
CPT/HCPCS: 36415; 80053; 80307; 84132; 84520; 85027; 86780; 87811

== ENCOUNTER 2023-09-14 11:49 | Inpatient (IN) | payer OTHER ==
[2023-09-14 13:49] VITALS: BMI 19.5
[2023-09-14] MEDS ORDERED: BISMUTH SUBSALICYLATE 524 MG/30 ML PO PRN (16:08)
[2023-09-14] MEDS ORDERED: NALOXONE HCL 0.4 MG/ML VIAL IM PRN (16:08)
[2023-09-14] MEDS ORDERED: ACETAMINOPHEN 325 MG TABLET (FP) PO PRN (16:08)
[2023-09-14] MEDS ORDERED: DICYCLOMINE HCL 10 MG CAPSULE PO PRN (16:08)
[2023-09-14] MEDS ORDERED: LOPERAMIDE HCL 2 MG CAPSULE PO PRN (16:08)
[2023-09-14] MEDS ORDERED: MAGNESIUM HYDROX 2400MG/30ML ORAL SUSPENSION 30 ML CUP PO PRN (16:08)
[2023-09-14] MEDS ORDERED: IBUPROFEN 600 MG TABLET (FP) PO PRN (16:08)
[2023-09-14] MEDS ORDERED: NICOTINE POLACRILEX 2 MG GUM BUC PRN (16:08)
[2023-09-14] MEDS ORDERED: hydrOXYzine PAMOATE 25 MG CAPSULE (FP) PO PRN (16:08)
[2023-09-14] MEDS ORDERED: NALOXONE HCL (KLOXXADO) 8 MG SPRAY NS PRN (16:08)
[2023-09-14] MEDS ORDERED: chlordiazePOXIDE HCL 25 MG CAPSULE PO PRN (16:08)
[2023-09-14] MEDS ORDERED: guaiFENesin 600 MG TABLET.ER (FP) PO PRN (16:08)
[2023-09-14] MEDS ORDERED: ONDANSETRON *ODT* 4 MG TABLET SL PRN (16:08)
[2023-09-14] MEDS ORDERED: IBUPROFEN 400 MG TABLET (FP) PO PRN (16:08)
[2023-09-14] MEDS ORDERED: BENZONATATE 200 MG CAPSULE PO PRN (16:08)
[2023-09-14] MEDS ORDERED: POLYETHYLENE GLYCOL (HEALTHYLAX) 3350 17 GM PACKET PO PRN (16:08)
[2023-09-14] MEDS ORDERED: BENZOCAINE/MENTHOL (CHLORASEPTIC ) LOZENGE MM PRN (16:08)
[2023-09-14] MEDS ORDERED: methaDONE HCL 10 MG TABLET (FOR DETOX USE ONLY) ONE (17:05)
[2023-09-14] MEDS: methaDONE HCL 10 MG TABLET (FOR DETOX USE ONLY) PO ONE (17:08)
[2023-09-14] MEDS: cloNIDine HCL 0.1 MG TABLET PO SCH (18:24)
[2023-09-14] MEDS: chlordiazePOXIDE HCL 25 MG CAPSULE PO SCH (18:24)
[2023-09-14] MEDS: PRENATAL VITAMINS W/ FOLIC ACID TABLET (FP) PO SCH (18:24)
[2023-09-14] MEDS: MELATONIN 5 MG TABLETS PO SCH (22:38)
[2023-09-14] MEDS: THIAMINE HCL 100 MG TABLET (FP) PO SCH (22:38)
[2023-09-14] MEDS: BUPRENORPHINE/NALOXONE 0.5 MG/0.125 MG FILM SL ONE (22:43)
[2023-09-15] MEDS ORDERED: ALBUTEROL SO4 HFA INHALER IH PRN (08:54)
[2023-09-15] MEDS: BUPRENORPHINE/NALOXONE 0.5 MG/0.125 MG FILM SL SCH (10:45)
[2023-09-15 11:51] LABS: HEMATOCRIT 37.2 % (35.4-49); HEMOGLOBIN 12.2 GM/dL (11.7-16.9); MCHC 32.8 g/dl (32.0-35.9); MEAN CELL VOLUME 85.2 fl (80-96); PLATELET COUNT 286 10^3/uL (134-434); RBC 4.36 M/mm3 (4.00-5.60); RDW 15.6 % (11.9-15.9); WHITE BLOOD COUNT 5.5 K/mm3 (4.0-10.0)
[2023-09-15 11:57] LABS: CHLORIDE 104 mmol/L (98-107); POTASSIUM 4.1 mmol/L (3.5-5.1); SODIUM 139 mmol/L (136-145)
[2023-09-15 12:11] LABS: CALCIUM 9.1 mg/dL (8.5-10.1)
[2023-09-15 12:12] LABS: ALBUMIN 3.6 g/dl (3.4-5.0); ANION GAP 4 mmol/L (4-13); BLOOD UREA NITROGEN 22.3 mg/dL (7-18); CO2 31 mmol/L (21-32); GLUCOSE,RANDOM 80 mg/dL (74-106)
[2023-09-15 12:14] LABS: SGPT/ALT 28 U/L (13-61)
[2023-09-15 12:15] LABS: CREATININE 1.3 mg/dL (0.55-1.3); SGOT/AST 24 U/L (15-37)
[2023-09-15 12:16] LABS: BILIRUBIN,TOTAL 0.6 mg/dL (0.2-1); TOT PROT 6.3 g/dl (6.4-8.2)
[2023-09-15 12:17] LABS: ALK PHOS 92 U/L (45-117)
[2023-09-15] MEDS: LACTULOSE 20 GM/30 ML UDC (FOR ORAL USE ONLY) PO SCH (13:41)
[2023-09-16] MEDS: chlordiazePOXIDE HCL 25 MG CAPSULE PO SCH (05:50)
[2023-09-16] MEDS: methaDONE HCL 10 MG TABLET (FOR DETOX USE ONLY) PO ONE (10:17)
[2023-09-16] MEDS: HYDROCHLOROTHIAZIDE 12.5 MG CAPSULE (FP) PO SCH (10:17)
[2023-09-16] MEDS: BUPRENORPHINE/NALOXONE 2 MG/0.5 MG FILM PACKET SL SCH (10:18)
[2023-09-17] MEDS ORDERED: chlordiazePOXIDE HCL 10 MG CAPSULE PO PRN
[2023-09-17] MEDS: chlordiazePOXIDE HCL 10 MG CAPSULE PO SCH (05:50)
[2023-09-17] MEDS: BUPRENORPHINE/NALOXONE 4 MG/1 MG FILM PACKET SL SCH (10:13)
[2023-09-17] MEDS: METHOCARBAMOL 500 MG TABLET PO PRN (22:28)
[2023-09-18] MEDS: chlordiazePOXIDE HCL 10 MG CAPSULE PO SCH (05:39)
[2023-09-18] MEDS: BUPRENORPHINE/NALOXONE 8 MG/2 MG FILM PACKET SL SCH (11:03)
[2023-09-18] MEDS: methaDONE HCL 10 MG TABLET (FOR DETOX USE ONLY) PO ONE (11:04)
[2023-09-19] MEDS: chlordiazePOXIDE HCL 10 MG CAPSULE PO ONE (05:41)
[2023-09-19] MEDS: MAG HYDROX/AL HYDROX/SIMETH 30 ML UNIT-DOSE CUP PO PRN (05:42)
[2023-09-19] MEDS: BUPRENORPHINE/NALOXONE 8 MG/2 MG FILM PACKET SL SCH (09:27)
[2023-09-19 09:47] VITALS: BP 142/85; PULSE 99; RESP 18; TEMP 97.7
== END 2023-09-19 10:08 | disposition home or self-care (01) | DRG 897 ==
LOC: YASAS 11:49 → Y6N 16:46
PROVIDERS: ADMIT Allergy & Immunology; ATTEND Surgery
PROC: HZ2ZZZZ Detoxification Services for Substance Abuse Treatment (ICD-10-PCS; principal; 2023-09-14)
DX: F11.23 Opioid dependence with withdrawal (principal); F14.20 Cocaine dependence, uncomplicated; E72.20 Disorder of urea cycle metabolism, unspecified; F10.230 Alcohol dependence with withdrawal, uncomplicated; F12.20 Cannabis dependence, uncomplicated; F17.210 Nicotine dependence, cigarettes, uncomplicated; H54.62 Unqualified visual loss, left eye, normal vision right eye; I10 Essential (primary) hypertension; J45.20 Mild intermittent asthma, uncomplicated; M17.0 Bilateral primary osteoarthritis of knee; M47.9 Spondylosis, unspecified
CPT/HCPCS: 36415; 80053; 80307; 82140; 84520; 85027; 86780; 93005; 93010

== ENCOUNTER 2023-09-28 13:05 | Inpatient (IN) | payer OTHER ==
[2023-09-28 14:50] VITALS: BMI 20.2
[2023-09-28] MEDS ORDERED: BENZONATATE 200 MG CAPSULE PO PRN (18:11)
[2023-09-28] MEDS ORDERED: METHOCARBAMOL 500 MG TABLET PO PRN (18:11)
[2023-09-28] MEDS ORDERED: MAGNESIUM HYDROX 2400MG/30ML ORAL SUSPENSION 30 ML CUP PO PRN (18:11)
[2023-09-28] MEDS ORDERED: ACETAMINOPHEN 325 MG TABLET (FP) PO PRN (18:11)
[2023-09-28] MEDS ORDERED: NALOXONE HCL (KLOXXADO) 8 MG SPRAY NS PRN (18:11)
[2023-09-28] MEDS ORDERED: POLYETHYLENE GLYCOL (HEALTHYLAX) 3350 17 GM PACKET PO PRN (18:11)
[2023-09-28] MEDS ORDERED: NALOXONE HCL 0.4 MG/ML VIAL IM PRN (18:11)
[2023-09-28] MEDS ORDERED: LOPERAMIDE HCL 2 MG CAPSULE PO PRN (18:11)
[2023-09-28] MEDS ORDERED: MAG HYDROX/AL HYDROX/SIMETH 30 ML UNIT-DOSE CUP PO PRN (18:11)
[2023-09-28] MEDS ORDERED: BISMUTH SUBSALICYLATE 524 MG/30 ML PO PRN (18:11)
[2023-09-28] MEDS ORDERED: IBUPROFEN 400 MG TABLET (FP) PO PRN (18:11)
[2023-09-28] MEDS ORDERED: ONDANSETRON *ODT* 4 MG TABLET SL PRN (18:11)
[2023-09-28] MEDS ORDERED: BENZOCAINE/MENTHOL (CHLORASEPTIC ) LOZENGE MM PRN (18:11)
[2023-09-28] MEDS ORDERED: IBUPROFEN 600 MG TABLET (FP) PO PRN (18:11)
[2023-09-28] MEDS ORDERED: DICYCLOMINE HCL 10 MG CAPSULE PO PRN (18:11)
[2023-09-28] MEDS: diazePAM 5 MG TABLET PO PRN (20:39)
[2023-09-28] MEDS: diazePAM 5 MG TABLET PO SCH (23:12)
[2023-09-28] MEDS: MELATONIN 5 MG TABLETS PO SCH (23:12)
[2023-09-28] MEDS: THIAMINE 100 MG TABLET PO SCH (23:12)
[2023-09-28] MEDS: guaiFENesin 600 MG TABLET.ER (FP) PO PRN (23:15)
[2023-09-29] MEDS: PRENATAL VITAMINS W/ FOLIC ACID TABLET (FP) PO SCH (10:54)
[2023-09-29 11:20] LABS: HEMATOCRIT 31.1 % (35.4-49); HEMOGLOBIN 10.1 GM/dL (11.7-16.9); MCH 27.7 pg (25.7-33.7); MCHC 32.6 g/dl (32.0-35.9); MEAN PLT VOLUME 7.6 fl (7.5-11.1); PLATELET COUNT 395 10^3/uL (134-434); RBC 3.66 M/mm3 (4.00-5.60); RDW 14.7 % (11.9-15.9); WHITE BLOOD COUNT 5.5 K/mm3 (4.0-10.0)
[2023-09-29] MEDS ORDERED: ALBUTEROL SO4 HFA INHALER IH PRN (11:24)
[2023-09-29] MEDS ORDERED: HYDROCHLOROTHIAZIDE 12.5 MG CAPSULE (FP) PO SCH (11:30)
[2023-09-29 11:42] LABS: CALCIUM 8.7 mg/dL (8.5-10.1)
[2023-09-29 11:43] LABS: BLOOD UREA NITROGEN 19.1 mg/dL (7-18); CO2 27 mmol/L (21-32); GLUCOSE,RANDOM 94 mg/dL (74-106)
[2023-09-29 11:44] LABS: ANION GAP 5 mmol/L (4-13); CHLORIDE 109 mmol/L (98-107); POTASSIUM 3.9 mmol/L (3.5-5.1); SODIUM 142 mmol/L (136-145)
[2023-09-29 11:45] LABS: SGOT/AST 17 U/L (15-37)
[2023-09-29 11:46] LABS: ALBUMIN 2.9 g/dl (3.4-5.0); SGPT/ALT 26 U/L (13-61)
[2023-09-29 11:47] LABS: TOT PROT 5.8 g/dl (6.4-8.2)
[2023-09-29 11:48] LABS: BILIRUBIN,TOTAL 0.4 mg/dL (0.2-1)
[2023-09-29 11:51] LABS: ALK PHOS 71 U/L (45-117)
[2023-09-29] MEDS: HYDROCHLOROTHIAZIDE 25 MG TABLET (FP) PO SCH (11:54)
[2023-09-29] MEDS: amLODIPine BESYLATE 5 MG TABLET (FP) PO ONE (21:07)
[2023-09-29] MEDS: hydrOXYzine PAMOATE 25 MG CAPSULE (FP) PO PRN (22:22)
[2023-09-30] MEDS: diazePAM 5 MG TABLET PO SCH (05:45)
[2023-09-30] MEDS: amLODIPine BESYLATE 5 MG TABLET (FP) PO SCH (12:08)
[2023-10-01] MEDS: diazePAM 5 MG TABLET PO SCH (05:48)
[2023-10-02] MEDS: diazePAM 5 MG TABLET PO ONE (07:00)
[2023-10-02 09:46] VITALS: BP 107/73; PULSE 92; RESP 16; TEMP 97.8
== END 2023-10-02 12:35 | disposition home or self-care (01) | DRG 897 ==
LOC: YASAS 13:05 → Y3N 19:49
PROVIDERS: ADMIT Allergy & Immunology; ATTEND Surgery
PROC: HZ2ZZZZ Detoxification Services for Substance Abuse Treatment (ICD-10-PCS; principal; 2023-09-28)
DX: F10.230 Alcohol dependence with withdrawal, uncomplicated (principal); F14.20 Cocaine dependence, uncomplicated; F12.20 Cannabis dependence, uncomplicated; F17.210 Nicotine dependence, cigarettes, uncomplicated; I10 Essential (primary) hypertension; H54.62 Unqualified visual loss, left eye, normal vision right eye; M17.0 Bilateral primary osteoarthritis of knee; M47.9 Spondylosis, unspecified; R79.89 Other specified abnormal findings of blood chemistry
CPT/HCPCS: 0241U-QW; 36415; 71046-TC-FY; 80053; 80307; 82140; 85027; 86780; 93005; 93010

== ENCOUNTER 2023-10-17 11:35 | Inpatient (IN) | payer OTHER ==
[2023-10-17 13:34] VITALS: BMI 21.2
[2023-10-17] MEDS ORDERED: POLYETHYLENE GLYCOL (HEALTHYLAX) 3350 17 GM PACKET PO PRN (16:26)
[2023-10-17] MEDS ORDERED: IBUPROFEN 600 MG TABLET (FP) PO PRN (16:26)
[2023-10-17] MEDS ORDERED: BENZOCAINE/MENTHOL (CHLORASEPTIC ) LOZENGE MM PRN (16:26)
[2023-10-17] MEDS ORDERED: BISMUTH SUBSALICYLATE 524 MG/30 ML PO PRN (16:26)
[2023-10-17] MEDS ORDERED: LOPERAMIDE HCL 2 MG CAPSULE PO PRN (16:26)
[2023-10-17] MEDS ORDERED: IBUPROFEN 400 MG TABLET (FP) PO PRN (16:26)
[2023-10-17] MEDS ORDERED: NICOTINE POLACRILEX 2 MG LOZENGE BC PRN (16:26)
[2023-10-17] MEDS ORDERED: NALOXONE HCL (KLOXXADO) 8 MG SPRAY NS PRN (16:26)
[2023-10-17] MEDS ORDERED: ONDANSETRON *ODT* 4 MG TABLET SL PRN (16:26)
[2023-10-17] MEDS ORDERED: BENZONATATE 200 MG CAPSULE PO PRN (16:26)
[2023-10-17] MEDS ORDERED: ACETAMINOPHEN 325 MG TABLET (FP) PO PRN (16:26)
[2023-10-17] MEDS ORDERED: guaiFENesin 600 MG TABLET.ER (FP) PO PRN (16:26)
[2023-10-17] MEDS ORDERED: NICOTINE POLACRILEX 2 MG GUM BUC PRN (16:26)
[2023-10-17] MEDS ORDERED: MAGNESIUM HYDROX 2400MG/30ML ORAL SUSPENSION 30 ML CUP PO PRN (16:26)
[2023-10-17] MEDS ORDERED: MAG HYDROX/AL HYDROX/SIMETH 30 ML UNIT-DOSE CUP PO PRN (16:26)
[2023-10-17] MEDS ORDERED: NALOXONE HCL 0.4 MG/ML VIAL IM PRN (16:26)
[2023-10-17] MEDS ORDERED: DICYCLOMINE HCL 10 MG CAPSULE PO PRN (16:26)
[2023-10-17] MEDS ORDERED: ALBUTEROL SO4 HFA INHALER IH PRN (16:30)
[2023-10-17] MEDS: HYDROCHLOROTHIAZIDE 12.5 MG CAPSULE (FP) PO SCH (17:42)
[2023-10-17] MEDS: NICOTINE 7 MG/24 HOURS TOPICAL PATCH TD SCH (17:43)
[2023-10-17] MEDS: LACTULOSE 20 GM/30 ML UDC (FOR ORAL USE ONLY) PO SCH (19:43)
[2023-10-17] MEDS: MELATONIN 5 MG TABLETS PO SCH (22:22)
[2023-10-17] MEDS: hydrOXYzine PAMOATE 25 MG CAPSULE (FP) PO PRN (22:22)
[2023-10-17] MEDS: THIAMINE 100 MG TABLET PO SCH (22:22)
[2023-10-17] MEDS: METHOCARBAMOL 500 MG TABLET PO PRN (22:22)
[2023-10-18] MEDS: PRENATAL VITAMINS W/ FOLIC ACID TABLET (FP) PO SCH (10:28)
[2023-10-18 11:53] LABS: HEMATOCRIT 33.4 % (35.4-49); HEMOGLOBIN 11.4 GM/dL (11.7-16.9); MCH 28.8 pg (25.7-33.7); MEAN CELL VOLUME 84.6 fl (80-96); PLATELET COUNT 288 10^3/uL (134-434); RBC 3.94 M/mm3 (4.00-5.60); RDW 14.9 % (11.9-15.9); WHITE BLOOD COUNT 5.2 K/mm3 (4.0-10.0)
[2023-10-18 12:46] LABS: CHLORIDE 104 mmol/L (98-107); POTASSIUM 4.1 mmol/L (3.5-5.1); SODIUM 137 mmol/L (136-145)
[2023-10-18 12:51] LABS: ALBUMIN 3.2 g/dl (3.4-5.0); ANION GAP 4 mmol/L (4-13); BLOOD UREA NITROGEN 15.8 mg/dL (7-18); CALCIUM 9.1 mg/dL (8.5-10.1); CO2 29 mmol/L (21-32); GLUCOSE,RANDOM 107 mg/dL (74-106)
[2023-10-18 12:54] LABS: CREATININE 1.2 mg/dL (0.55-1.3); SGOT/AST 13 U/L (15-37); SGPT/ALT 20 U/L (13-61)
[2023-10-18 12:56] LABS: BILIRUBIN,TOTAL 0.6 mg/dL (0.2-1)
[2023-10-18 12:57] LABS: ALK PHOS 97 U/L (45-117)
[2023-10-18 17:22] VITALS: RESP 16
[2023-10-18 18:00] LABS: EPI CELLS 6 /uL (0-25.1); HYALINE CASTS 2 /uL (0-3.1); PH,URINE 6.5 (5.0-8.0); URINE APPEARANCE CLOUDY; URINE BACTERIA >9,000 /uL (0-1359); URINE BILIRUBIN NEGATIVE (NEGATIVE); URINE COLOR YELLOW; URINE GLUCOSE (UA) NEGATIVE (NEGATIVE); URINE KETONE TRACE (NEGATIVE); URINE LEUK ESTERASE 2+ (NEGATIVE); URINE NITRITE NEGATIVE (NEGATIVE); URINE PROTEIN NEGATIVE (NEGATIVE); URINE RBC 11 /uL (0-23.9); URINE WBC 270 /uL (0-25.8)
[2023-10-19 09:37] VITALS: BP 146/91; PULSE 99; TEMP 97.8
== END 2023-10-19 11:38 | disposition home or self-care (01) | DRG 897 ==
LOC: YASAS 11:35 → SUATTDRO 11:35 → Y6N 16:33
PROVIDERS: ADMIT Allergy & Immunology; ATTEND Psychiatry & Neurology Pain Medicine
PROC: HZ2ZZZZ Detoxification Services for Substance Abuse Treatment (ICD-10-PCS; principal; 2023-10-17)
DX: F10.20 Alcohol dependence, uncomplicated (principal); F11.20 Opioid dependence, uncomplicated; F19.282 Other psychoactive substance dependence with psychoactive substance-induced sleep disorder; F12.20 Cannabis dependence, uncomplicated; F17.210 Nicotine dependence, cigarettes, uncomplicated; F19.24 Other psychoactive substance dependence with psychoactive substance-induced mood disorder; H54.62 Unqualified visual loss, left eye, normal vision right eye; I10 Essential (primary) hypertension; J45.20 Mild intermittent asthma, uncomplicated; G62.9 Polyneuropathy, unspecified; K21.9 Gastro-esophageal reflux disease without esophagitis; R79.89 Other specified abnormal findings of blood chemistry
CPT/HCPCS: 36415; 80053; 80305; 80307; 81003; 82140; 85027; 86780; 93005; 93010

== ENCOUNTER 2023-11-01 13:26 | Inpatient (IN) | payer OTHER ==
[2023-11-01 14:06] VITALS: BMI 20.7
[2023-11-01] MEDS ORDERED: BENZOCAINE/MENTHOL (CHLORASEPTIC ) LOZENGE MM PRN (14:10)
[2023-11-01] MEDS ORDERED: DICYCLOMINE HCL 10 MG CAPSULE PO PRN (14:10)
[2023-11-01] MEDS ORDERED: IBUPROFEN 600 MG TABLET (FP) PO PRN (14:10)
[2023-11-01] MEDS ORDERED: NALOXONE HCL (KLOXXADO) 8 MG SPRAY NS PRN (14:10)
[2023-11-01] MEDS ORDERED: ACETAMINOPHEN 325 MG TABLET (FP) PO PRN (14:10)
[2023-11-01] MEDS ORDERED: POLYETHYLENE GLYCOL (HEALTHYLAX) 3350 17 GM PACKET PO PRN (14:10)
[2023-11-01] MEDS ORDERED: IBUPROFEN 400 MG TABLET (FP) PO PRN (14:10)
[2023-11-01] MEDS ORDERED: MAG HYDROX/AL HYDROX/SIMETH 30 ML UNIT-DOSE CUP PO PRN (14:10)
[2023-11-01] MEDS ORDERED: NALOXONE HCL 0.4 MG/ML VIAL IM PRN (14:10)
[2023-11-01] MEDS ORDERED: METHOCARBAMOL 500 MG TABLET PO PRN (14:10)
[2023-11-01] MEDS ORDERED: NICOTINE POLACRILEX 2 MG GUM BUC PRN (14:10)
[2023-11-01] MEDS ORDERED: MAGNESIUM HYDROX 2400MG/30ML ORAL SUSPENSION 30 ML CUP PO PRN (14:10)
[2023-11-01] MEDS ORDERED: NICOTINE POLACRILEX 2 MG LOZENGE BC PRN (14:10)
[2023-11-01] MEDS ORDERED: ONDANSETRON *ODT* 4 MG TABLET SL PRN (14:10)
[2023-11-01] MEDS ORDERED: BENZONATATE 200 MG CAPSULE PO PRN (14:10)
[2023-11-01] MEDS ORDERED: BISMUTH SUBSALICYLATE 262 MG/15 ML BTL PO PRN (14:10)
[2023-11-01] MEDS ORDERED: LOPERAMIDE HCL 2 MG CAPSULE PO PRN (14:10)
[2023-11-01] MEDS ORDERED: guaiFENesin 600 MG TABLET.ER (FP) PO PRN (14:10)
[2023-11-01] MEDS ORDERED: ALBUTEROL SO4 HFA INHALER IH PRN ×2 (14:14→14:15)
[2023-11-01] MEDS ORDERED: HYDROCHLOROTHIAZIDE 12.5 MG CAPSULE (FP) ONE (14:38)
[2023-11-01] MEDS: HYDROCHLOROTHIAZIDE 12.5 MG CAPSULE (FP) PO SCH (14:40)
[2023-11-01] MEDS: THIAMINE 100 MG TABLET PO SCH (22:17)
[2023-11-01] MEDS: MELATONIN 5 MG TABLETS PO SCH (22:17)
[2023-11-01] MEDS: hydrOXYzine PAMOATE 25 MG CAPSULE (FP) PO PRN (22:18)
[2023-11-02 10:15] LABS: HEMATOCRIT 34.3 % (35.4-49); HEMOGLOBIN 11.6 GM/dL (11.7-16.9); MCH 29.1 pg (25.7-33.7); MEAN CELL VOLUME 85.8 fl (80-96); MEAN PLT VOLUME 8.5 fl (7.5-11.1); PLATELET COUNT 223 10^3/uL (134-434); RDW 15.2 % (11.9-15.9)
[2023-11-02 10:18] LABS: CHLORIDE 104 mmol/L (98-107); POTASSIUM 3.9 mmol/L (3.5-5.1); SODIUM 137 mmol/L (136-145)
[2023-11-02 10:26] LABS: ANION GAP 2 mmol/L (4-13); CO2 30 mmol/L (21-32); GLUCOSE,RANDOM 89 mg/dL (74-106)
[2023-11-02 10:27] LABS: ALBUMIN 3.2 g/dl (3.4-5.0); BLOOD UREA NITROGEN 21.2 mg/dL (7-18)
[2023-11-02 10:29] LABS: SGPT/ALT 13 U/L (13-61)
[2023-11-02 10:30] LABS: BILIRUBIN,TOTAL 0.6 mg/dL (0.2-1); CREATININE 1.2 mg/dL (0.55-1.3); SGOT/AST 11 U/L (15-37)
[2023-11-02 10:32] LABS: ALK PHOS 81 U/L (45-117)
[2023-11-02] MEDS: PRENATAL VITAMINS W/ FOLIC ACID TABLET (FP) PO SCH (10:32)
[2023-11-02] MEDS: HYDROCHLOROTHIAZIDE 12.5 MG CAPSULE (FP) PO SCH (10:34)
[2023-11-02] MEDS: LACTULOSE 20 GM/30 ML UDC (FOR ORAL USE ONLY) PO SCH (13:52)
[2023-11-03 10:16] VITALS: BP 130/78; PULSE 107; RESP 18; TEMP 97.7
== END 2023-11-03 09:40 | disposition home or self-care (01) | DRG 897 ==
LOC: YASAS 13:26 → Y6N 14:21
PROVIDERS: ADMIT Allergy & Immunology; ATTEND Surgery
PROC: HZ2ZZZZ Detoxification Services for Substance Abuse Treatment (ICD-10-PCS; principal; 2023-11-01)
DX: F10.20 Alcohol dependence, uncomplicated (principal); F14.20 Cocaine dependence, uncomplicated; F19.282 Other psychoactive substance dependence with psychoactive substance-induced sleep disorder; F12.20 Cannabis dependence, uncomplicated; F17.210 Nicotine dependence, cigarettes, uncomplicated; I10 Essential (primary) hypertension; J45.20 Mild intermittent asthma, uncomplicated; H54.62 Unqualified visual loss, left eye, normal vision right eye; R79.89 Other specified abnormal findings of blood chemistry; Z62.810 Personal history of physical and sexual abuse in childhood
CPT/HCPCS: 36415; 80053; 80305; 80307; 82140; 85027; 86780; 93005; 93010

== ENCOUNTER 2024-01-29 14:45 | Inpatient (IN) | payer OTHER ==
[2024-01-29 16:30] VITALS: BMI 20.1
[2024-01-29] MEDS ORDERED: guaiFENesin 600 MG TABLET.ER (FP) PO PRN (19:03)
[2024-01-29] MEDS ORDERED: IBUPROFEN 400 MG TABLET (FP) PO PRN (19:03)
[2024-01-29] MEDS ORDERED: MAG HYDROX/AL HYDROX/SIMETH 30 ML UNIT-DOSE CUP PO PRN (19:03)
[2024-01-29] MEDS ORDERED: NALOXONE (NARCAN) HCL 4 MG/0.1 ML SPRAY NS PRN (19:03)
[2024-01-29] MEDS ORDERED: METHOCARBAMOL 500 MG TABLET PO PRN (19:03)
[2024-01-29] MEDS ORDERED: MAGNESIUM HYDROX 2400MG/30ML ORAL SUSPENSION 30 ML CUP PO PRN (19:03)
[2024-01-29] MEDS ORDERED: POLYETHYLENE GLYCOL (HEALTHYLAX) 3350 17 GM PACKET PO PRN (19:03)
[2024-01-29] MEDS ORDERED: BENZONATATE 200 MG CAPSULE PO PRN (19:03)
[2024-01-29] MEDS ORDERED: BENZOCAINE/MENTHOL (CHLORASEPTIC ) LOZENGE MM PRN (19:03)
[2024-01-29] MEDS ORDERED: DICYCLOMINE HCL 10 MG CAPSULE PO PRN (19:03)
[2024-01-29] MEDS ORDERED: NALOXONE HCL 0.4 MG/ML VIAL IM PRN (19:03)
[2024-01-29] MEDS ORDERED: BISMUTH SUBSALICYLATE 524 MG/30 ML PO PRN (19:03)
[2024-01-29] MEDS ORDERED: IBUPROFEN 600 MG TABLET (FP) PO PRN (19:03)
[2024-01-29] MEDS ORDERED: LOPERAMIDE HCL 2 MG CAPSULE PO PRN (19:03)
[2024-01-29] MEDS: ACETAMINOPHEN 325 MG TABLET (FP) PO PRN (19:23)
[2024-01-29] MEDS: MELATONIN 5 MG TABLETS PO SCH (22:42)
[2024-01-29] MEDS: THIAMINE 100 MG TABLET PO SCH (22:42)
[2024-01-30] MEDS ORDERED: diazePAM 5 MG TABLET PO PRN (10:03)
[2024-01-30 10:08] LABS: HEMATOCRIT 36.1 % (35.4-49); MCHC 33.3 g/dl (32.0-35.9); MEAN CELL VOLUME 84.3 fl (80-96); MEAN PLT VOLUME 8.4 fl (7.5-11.1); PLATELET COUNT 293 10^3/uL (134-434); RBC 4.29 M/mm3 (4.00-5.60); RDW 14.3 % (11.9-15.9); WHITE BLOOD COUNT 4.9 K/mm3 (4.0-10.0)
[2024-01-30] MEDS: diazePAM 5 MG TABLET PO SCH (10:18)
[2024-01-30] MEDS: PRENATAL VITAMINS W/ FOLIC ACID TABLET (FP) PO SCH (10:19)
[2024-01-30] MEDS: ONDANSETRON *ODT* 4 MG TABLET SL PRN (10:19)
[2024-01-30 11:25] LABS: CHLORIDE 108 mmol/L (98-107); POTASSIUM 3.8 mmol/L (3.5-5.1); SODIUM 142 mmol/L (136-145)
[2024-01-30 11:29] LABS: CALCIUM 8.8 mg/dL (8.5-10.1)
[2024-01-30 11:30] LABS: ALBUMIN 3.2 g/dl (3.4-5.0); ANION GAP 7 mmol/L (4-13); BLOOD UREA NITROGEN 29.7 mg/dL (7-18); CO2 26 mmol/L (21-32); CREATININE 1.1 mg/dL (0.55-1.3); GLUCOSE,RANDOM 94 mg/dL (74-106); SGPT/ALT 22 U/L (13-61)
[2024-01-30 11:34] LABS: BILIRUBIN,TOTAL 0.8 mg/dL (0.2-1); TOT PROT 5.9 g/dl (6.4-8.2)
[2024-01-30 11:35] LABS: ALK PHOS 96 U/L (45-117); SGOT/AST 15 U/L (15-37)
[2024-02-01] MEDS: diazePAM 5 MG TABLET PO SCH (05:39)
[2024-02-02] MEDS: diazePAM 5 MG TABLET PO SCH (05:52)
[2024-02-02] MEDS ORDERED: ALBUTEROL SO4 HFA INHALER IH PRN (10:30)
[2024-02-02] MEDS: HYDROCHLOROTHIAZIDE 12.5 MG CAPSULE (FP) PO SCH (10:52)
[2024-02-02 17:01] VITALS: RESP 16
[2024-02-02] MEDS: hydrOXYzine PAMOATE 25 MG CAPSULE (FP) PO PRN (21:29)
[2024-02-03] MEDS: diazePAM 5 MG TABLET PO ONE (05:38)
[2024-02-03] MEDS: HYDROCHLOROTHIAZIDE 25 MG TABLET (FP) PO ONE (09:10)
[2024-02-03 09:24] VITALS: BP 148/106; PULSE 88; TEMP 98.2
[2024-02-03] MEDS ORDERED: HYDROCHLOROTHIAZIDE 25 MG TABLET (FP) PO SCH (10:00)
== END 2024-02-03 09:20 | disposition home or self-care (01) | DRG 897 ==
LOC: YASAS 14:45 → Y3N 18:56
PROVIDERS: ADMIT Surgery; ATTEND Surgery
PROC: HZ2ZZZZ Detoxification Services for Substance Abuse Treatment (ICD-10-PCS; principal; 2024-01-29)
DX: F10.230 Alcohol dependence with withdrawal, uncomplicated (principal); F12.20 Cannabis dependence, uncomplicated; F17.210 Nicotine dependence, cigarettes, uncomplicated; F41.9 Anxiety disorder, unspecified; E78.5 Hyperlipidemia, unspecified; H54.62 Unqualified visual loss, left eye, normal vision right eye; I10 Essential (primary) hypertension; J45.20 Mild intermittent asthma, uncomplicated
CPT/HCPCS: 36415; 80053; 80305; 80307; 85027; 86780; Q0162

== ENCOUNTER 2024-03-08 13:09 | Inpatient (IN) | payer OTHER ==
[2024-03-08 14:26] VITALS: BMI 22.8
[2024-03-08] MEDS ORDERED: BENZOCAINE/MENTHOL (CHLORASEPTIC ) LOZENGE MM PRN (14:43)
[2024-03-08] MEDS ORDERED: POLYETHYLENE GLYCOL (HEALTHYLAX) 3350 17 GM PACKET PO PRN (14:43)
[2024-03-08] MEDS ORDERED: guaiFENesin 600 MG TABLET.ER (FP) PO PRN (14:43)
[2024-03-08] MEDS ORDERED: BISMUTH SUBSALICYLATE 262 MG/15 ML BTL PO PRN (14:43)
[2024-03-08] MEDS ORDERED: ACETAMINOPHEN 325 MG TABLET (FP) PO PRN (14:43)
[2024-03-08] MEDS ORDERED: LOPERAMIDE HCL 2 MG CAPSULE PO PRN (14:43)
[2024-03-08] MEDS ORDERED: BENZONATATE 200 MG CAPSULE PO PRN (14:43)
[2024-03-08] MEDS ORDERED: MAGNESIUM HYDROX 2400MG/30ML ORAL SUSPENSION 30 ML CUP PO PRN (14:43)
[2024-03-08] MEDS ORDERED: MAG HYDROX/AL HYDROX/SIMETH 30 ML UNIT-DOSE CUP PO PRN (14:43)
[2024-03-08] MEDS ORDERED: DICYCLOMINE HCL 10 MG CAPSULE PO PRN (14:43)
[2024-03-08] MEDS ORDERED: ONDANSETRON *ODT* 4 MG TABLET SL PRN (14:43)
[2024-03-08] MEDS: THIAMINE 100 MG TABLET PO SCH (22:10)
[2024-03-08] MEDS: MELATONIN 5 MG TABLETS PO SCH (22:11)
[2024-03-08] MEDS: IBUPROFEN 600 MG TABLET (FP) PO PRN (22:12)
[2024-03-09] MEDS ORDERED: diazePAM 5 MG TABLET PO PRN (08:33)
[2024-03-09] MEDS: PRENATAL VITAMINS W/ FOLIC ACID TABLET (FP) PO SCH (10:21)
[2024-03-09] MEDS: diazePAM 5 MG TABLET PO SCH (10:21)
[2024-03-09 14:57] LABS: HEMATOCRIT 37.1 % (35.4-49); MCH 27.8 pg (25.7-33.7); MCHC 32.3 g/dl (32.0-35.9); MEAN CELL VOLUME 85.8 fl (80-96); MEAN PLT VOLUME 8.3 fl (7.5-11.1); PLATELET COUNT 237 10^3/uL (134-434); RBC 4.32 M/mm3 (4.00-5.60); RDW 14.4 % (11.9-15.9); WHITE BLOOD COUNT 4.4 K/mm3 (4.0-10.0)
[2024-03-09 15:39] LABS: CHLORIDE 107 mmol/L (98-107); POTASSIUM 4.3 mmol/L (3.5-5.1); SODIUM 139 mmol/L (136-145)
[2024-03-09 15:43] LABS: ALBUMIN 3.3 g/dl (3.4-5.0); ANION GAP 3 mmol/L (4-13); BLOOD UREA NITROGEN 30.6 mg/dL (7-18); CALCIUM 8.4 mg/dL (8.5-10.1); CO2 29 mmol/L (21-32); GLUCOSE,RANDOM 97 mg/dL (74-106)
[2024-03-09 15:46] LABS: CREATININE 1.1 mg/dL (0.55-1.3); SGOT/AST 43 U/L (15-37); SGPT/ALT 32 U/L (13-61)
[2024-03-09 15:50] LABS: ALK PHOS 83 U/L (45-117)
[2024-03-09] MEDS: IBUPROFEN 400 MG TABLET (FP) PO PRN (17:15)
[2024-03-10] MEDS: METHOCARBAMOL 500 MG TABLET PO PRN (09:12)
[2024-03-10] MEDS: hydrOXYzine PAMOATE 25 MG CAPSULE (FP) PO PRN (09:12)
[2024-03-10] MEDS: HYDROCHLOROTHIAZIDE 25 MG TABLET (FP) PO SCH (12:41)
[2024-03-10] MEDS: amLODIPine BESYLATE 10 MG TABLET (FP) PO SCH (12:41)
[2024-03-10] MEDS ORDERED: NALOXONE (NYS OPIOID OVERDOSE PROGRAM) 4 MG/0.1 ML SPRAY NS PRN (14:19)
[2024-03-10] MEDS: NALOXONE (NYS OPIOID OVERDOSE PROGRAM) 4 MG/0.1 ML SPRAY NS ONE (14:22)
[2024-03-11] MEDS: diazePAM 5 MG TABLET PO SCH (05:32)
[2024-03-12] MEDS: diazePAM 5 MG TABLET PO SCH (05:38)
[2024-03-12 21:20] VITALS: RESP 16
[2024-03-13] MEDS: diazePAM 5 MG TABLET PO ONE (05:48)
[2024-03-13 09:44] VITALS: BP 135/87; PULSE 85; TEMP 97.7
== END 2024-03-13 10:57 | disposition home or self-care (01) | DRG 897 ==
LOC: YASAS 13:09 → Y6N 16:38
PROVIDERS: ADMIT Allergy & Immunology; ATTEND Surgery
PROC: HZ2ZZZZ Detoxification Services for Substance Abuse Treatment (ICD-10-PCS; principal; 2024-03-08)
DX: F10.230 Alcohol dependence with withdrawal, uncomplicated (principal); F14.20 Cocaine dependence, uncomplicated; F19.282 Other psychoactive substance dependence with psychoactive substance-induced sleep disorder; F12.20 Cannabis dependence, uncomplicated; F17.210 Nicotine dependence, cigarettes, uncomplicated; F19.24 Other psychoactive substance dependence with psychoactive substance-induced mood disorder; G47.00 Insomnia, unspecified; H54.62 Unqualified visual loss, left eye, normal vision right eye; I10 Essential (primary) hypertension; J45.20 Mild intermittent asthma, uncomplicated; K21.9 Gastro-esophageal reflux disease without esophagitis; M15.9 Polyosteoarthritis, unspecified; R79.89 Other specified abnormal findings of blood chemistry; Z62.810 Personal history of physical and sexual abuse in childhood; Z63.8 Other specified problems related to primary support group
CPT/HCPCS: 36415; 80053; 80305; 80307; 85027

== ENCOUNTER 2024-05-17 11:43 | Inpatient (IN) | payer OTHER ==
[2024-05-17 13:33] VITALS: BMI 22.3
[2024-05-17] MEDS ORDERED: ONDANSETRON *ODT* 4 MG TABLET SL PRN (13:41)
[2024-05-17] MEDS ORDERED: IBUPROFEN 400 MG TABLET (FP) PO PRN (13:41)
[2024-05-17] MEDS ORDERED: MAGNESIUM HYDROX 2400MG/30ML ORAL SUSPENSION 30 ML CUP PO PRN (13:41)
[2024-05-17] MEDS ORDERED: NALOXONE (NARCAN) HCL 4 MG/0.1 ML SPRAY NS PRN (13:41)
[2024-05-17] MEDS ORDERED: DICYCLOMINE HCL 10 MG CAPSULE PO PRN (13:41)
[2024-05-17] MEDS ORDERED: MAG HYDROX/AL HYDROX/SIMETH 30 ML UNIT-DOSE CUP PO PRN (13:41)
[2024-05-17] MEDS ORDERED: POLYETHYLENE GLYCOL (HEALTHYLAX) 3350 17 GM PACKET PO PRN (13:41)
[2024-05-17] MEDS ORDERED: BISMUTH SUBSALICYLATE 262 MG/15 ML BTL PO PRN (13:41)
[2024-05-17] MEDS ORDERED: BENZOCAINE/MENTHOL (CHLORASEPTIC ) LOZENGE MM PRN (13:41)
[2024-05-17] MEDS ORDERED: ACETAMINOPHEN 325 MG TABLET (FP) PO PRN (13:41)
[2024-05-17] MEDS ORDERED: LOPERAMIDE HCL 2 MG CAPSULE PO PRN (13:41)
[2024-05-17] MEDS ORDERED: guaiFENesin 600 MG TABLET.ER (FP) PO PRN (13:41)
[2024-05-17] MEDS ORDERED: BENZONATATE 200 MG CAPSULE PO PRN (13:41)
[2024-05-17] MEDS ORDERED: HYDROCHLOROTHIAZIDE 25 MG TABLET (FP) PO SCH (13:45)
[2024-05-17] MEDS ORDERED: HYDROCHLOROTHIAZIDE 12.5 MG CAPSULE (FP) ONE (15:04)
[2024-05-17] MEDS: HYDROCHLOROTHIAZIDE 12.5 MG CAPSULE (FP) PO SCH (15:16)
[2024-05-17] MEDS: THIAMINE 100 MG TABLET PO SCH (22:28)
[2024-05-17] MEDS: MELATONIN 5 MG TABLETS PO SCH (22:28)
[2024-05-18] MEDS ORDERED: chlordiazePOXIDE HCL 25 MG CAPSULE PO PRN (09:25)
[2024-05-18] MEDS: amLODIPine BESYLATE 10 MG TABLET (FP) PO SCH (10:38)
[2024-05-18] MEDS: chlordiazePOXIDE HCL 25 MG CAPSULE PO SCH (10:38)
[2024-05-18] MEDS: PRENATAL VITAMINS W/ FOLIC ACID TABLET (FP) PO SCH (10:38)
[2024-05-18] MEDS: IBUPROFEN 600 MG TABLET (FP) PO PRN (10:41)
[2024-05-18 12:03] LABS: HEMATOCRIT 38.7 % (35.4-49); HEMOGLOBIN 12.3 GM/dL (11.7-16.9); MCH 27.3 pg (25.7-33.7); MCHC 31.8 g/dl (32.0-35.9); MEAN CELL VOLUME 85.7 fl (80-96); MEAN PLT VOLUME 9.3 fl (7.5-11.1); PLATELET COUNT 402 10^3/uL (134-434); RBC 4.52 M/mm3 (4.00-5.60); RDW 15.1 % (11.9-15.9); WHITE BLOOD COUNT 5.4 K/mm3 (4.0-10.0)
[2024-05-18 12:39] LABS: POTASSIUM 3.6 mmol/L (3.5-5.1)
[2024-05-18 12:46] LABS: ALBUMIN 3.5 g/dl (3.4-5.0); BLOOD UREA NITROGEN 17.3 mg/dL (7-18); CREATININE 1.3 mg/dL (0.55-1.3)
[2024-05-18 12:47] LABS: CALCIUM 9.4 mg/dL (8.5-10.1)
[2024-05-18 12:48] LABS: BILIRUBIN,TOTAL 0.6 mg/dL (0.2-1); TOT PROT 6.7 g/dl (6.4-8.2)
[2024-05-18] MEDS: NALTREXONE HCL 50 MG TABLET PO SCH (13:40)
[2024-05-19] MEDS: chlordiazePOXIDE HCL 10 MG CAPSULE PO SCH (05:21)
[2024-05-20] MEDS ORDERED: chlordiazePOXIDE HCL 10 MG CAPSULE PO PRN
[2024-05-20] MEDS: chlordiazePOXIDE HCL 10 MG CAPSULE PO SCH (05:18)
[2024-05-20] MEDS: METHOCARBAMOL 500 MG TABLET PO PRN (22:20)
[2024-05-20] MEDS: hydrOXYzine PAMOATE 25 MG CAPSULE (FP) PO PRN (22:20)
[2024-05-21] MEDS: chlordiazePOXIDE HCL 10 MG CAPSULE PO ONE (05:26)
[2024-05-21 06:25] VITALS: BP 124/78; PULSE 72; RESP 17; TEMP 97.7
== END 2024-05-21 09:10 | disposition home or self-care (01) | DRG 897 ==
LOC: YASAS 11:43 → Y6N 14:59
PROVIDERS: ADMIT Allergy & Immunology; ATTEND Surgery
PROC: HZ2ZZZZ Detoxification Services for Substance Abuse Treatment (ICD-10-PCS; principal; 2024-05-17)
DX: F10.230 Alcohol dependence with withdrawal, uncomplicated (principal); F14.20 Cocaine dependence, uncomplicated; F12.20 Cannabis dependence, uncomplicated; F11.10 Opioid abuse, uncomplicated; F19.94 Other psychoactive substance use, unspecified with psychoactive substance-induced mood disorder; F19.982 Other psychoactive substance use, unspecified with psychoactive substance-induced sleep disorder; I10 Essential (primary) hypertension; H54.40 Blindness, one eye, unspecified eye; K21.9 Gastro-esophageal reflux disease without esophagitis; J45.909 Unspecified asthma, uncomplicated; R73.01 Impaired fasting glucose; E78.5 Hyperlipidemia, unspecified; G62.89 Other specified polyneuropathies; Z62.810 Personal history of physical and sexual abuse in childhood; Z86.69 Personal history of other diseases of the nervous system and sense organs; Z56.0 Unemployment, unspecified
CPT/HCPCS: 36415; 80053; 80307; 85027; 86780; 93005; 93010

== ENCOUNTER 2024-06-19 10:09 | Inpatient (IN) | payer OTHER ==
[2024-06-19 10:31] VITALS: BMI 23.0
[2024-06-19] MEDS ORDERED: ACETAMINOPHEN 325 MG TABLET (FP) PO PRN (10:41)
[2024-06-19] MEDS ORDERED: BISMUTH SUBSALICYLATE 524 MG/30 ML PO PRN (10:41)
[2024-06-19] MEDS ORDERED: LOPERAMIDE HCL 2 MG CAPSULE PO PRN (10:41)
[2024-06-19] MEDS ORDERED: ONDANSETRON *ODT* 4 MG TABLET SL PRN (10:41)
[2024-06-19] MEDS ORDERED: NALOXONE (NARCAN) HCL 4 MG/0.1 ML SPRAY NS PRN (10:41)
[2024-06-19] MEDS ORDERED: BENZOCAINE/MENTHOL (CHLORASEPTIC ) LOZENGE MM PRN (10:41)
[2024-06-19] MEDS ORDERED: POLYETHYLENE GLYCOL (HEALTHYLAX) 3350 17 GM PACKET PO PRN (10:41)
[2024-06-19] MEDS ORDERED: BENZONATATE 200 MG CAPSULE PO PRN (10:41)
[2024-06-19] MEDS ORDERED: IBUPROFEN 600 MG TABLET (FP) PO PRN (10:41)
[2024-06-19] MEDS ORDERED: DICYCLOMINE HCL 10 MG CAPSULE PO PRN (10:41)
[2024-06-19] MEDS ORDERED: MAG HYDROX/AL HYDROX/SIMETH 30 ML UNIT-DOSE CUP PO PRN (10:41)
[2024-06-19] MEDS ORDERED: NICOTINE POLACRILEX 2 MG GUM BUC PRN (10:41)
[2024-06-19] MEDS ORDERED: guaiFENesin 600 MG TABLET.ER (FP) PO PRN (10:41)
[2024-06-19] MEDS ORDERED: MAGNESIUM HYDROX 2400MG/30ML ORAL SUSPENSION 30 ML CUP PO PRN (10:41)
[2024-06-19] MEDS ORDERED: amLODIPine BESYLATE 5 MG TABLET (FP) ONE (12:03)
[2024-06-19] MEDS ORDERED: HYDROCHLOROTHIAZIDE 12.5 MG CAPSULE (FP) ONE (12:04)
[2024-06-19] MEDS: HYDROCHLOROTHIAZIDE 12.5 MG CAPSULE (FP) PO SCH (12:07)
[2024-06-19] MEDS: amLODIPine BESYLATE 5 MG TABLET (FP) PO SCH (12:07)
[2024-06-19] MEDS: IBUPROFEN 400 MG TABLET (FP) PO PRN (22:14)
[2024-06-19] MEDS: MIRTAZAPINE 15 MG TABLET (FP) PO SCH (22:14)
[2024-06-19] MEDS: THIAMINE 100 MG TABLET PO SCH (22:15)
[2024-06-19] MEDS: MELATONIN 5 MG TABLETS PO SCH (22:15)
[2024-06-20] MEDS: PRENATAL VITAMINS W/ FOLIC ACID TABLET (FP) PO SCH (09:35)
[2024-06-20] MEDS: METHOCARBAMOL 500 MG TABLET PO PRN (09:35)
[2024-06-20] MEDS: hydrOXYzine PAMOATE 25 MG CAPSULE (FP) PO PRN (09:35)
[2024-06-20 11:12] LABS: POTASSIUM 3.9 mmol/L (3.5-5.1)
[2024-06-20 11:13] LABS: HEMATOCRIT 37.8 % (35.4-49); HEMOGLOBIN 12.1 GM/dL (11.7-16.9); MCH 26.9 pg (25.7-33.7); MCHC 32.1 g/dl (32.0-35.9); MEAN CELL VOLUME 83.8 fl (80-96); MEAN PLT VOLUME 8.5 fl (7.5-11.1); PLATELET COUNT 300 10^3/uL (134-434); RBC 4.51 M/mm3 (4.00-5.60); RDW 14.4 % (11.9-15.9); WHITE BLOOD COUNT 7.8 K/mm3 (4.0-10.0)
[2024-06-20 11:18] LABS: CALCIUM 9.3 mg/dL (8.5-10.1)
[2024-06-20 11:19] LABS: ALBUMIN 3.8 g/dl (3.4-5.0); BLOOD UREA NITROGEN 27.3 mg/dL (7-18)
[2024-06-20 11:22] LABS: CREATININE 1.3 mg/dL (0.55-1.3)
[2024-06-20 11:24] LABS: TOT PROT 7.1 g/dl (6.4-8.2)
[2024-06-21 06:34] VITALS: RESP 16
[2024-06-21 09:01] VITALS: BP 111/69; PULSE 71; TEMP 97.7
[2024-06-21] MEDS: NALOXONE (NYS OPIOID OVERDOSE PROGRAM) 4 MG/0.1 ML SPRAY NS SCH (09:58)
== END 2024-06-21 10:15 | disposition other institution (70) | DRG 897 ==
LOC: YASAS 10:09 → Y6N 10:50
PROVIDERS: ADMIT Allergy & Immunology; ATTEND Allergy & Immunology
PROC: HZ2ZZZZ Detoxification Services for Substance Abuse Treatment (ICD-10-PCS; principal; 2024-06-19)
DX: F10.20 Alcohol dependence, uncomplicated (principal); F14.20 Cocaine dependence, uncomplicated; F19.282 Other psychoactive substance dependence with psychoactive substance-induced sleep disorder; F12.20 Cannabis dependence, uncomplicated; F17.210 Nicotine dependence, cigarettes, uncomplicated; F19.24 Other psychoactive substance dependence with psychoactive substance-induced mood disorder; E78.5 Hyperlipidemia, unspecified; G62.9 Polyneuropathy, unspecified; H54.62 Unqualified visual loss, left eye, normal vision right eye; I10 Essential (primary) hypertension; J45.909 Unspecified asthma, uncomplicated; K21.9 Gastro-esophageal reflux disease without esophagitis
CPT/HCPCS: 36415; 80053; 80305; 80307; 85027; 86780; 93005; 93010

== ENCOUNTER 2024-08-13 14:38 | Inpatient (IN) | payer OTHER ==
[2024-08-13 15:20] VITALS: BMI 24.7
[2024-08-13] MEDS ORDERED: guaiFENesin 600 MG TABLET.ER (FP) PO PRN (16:31)
[2024-08-13] MEDS ORDERED: BISMUTH SUBSALICYLATE 524 MG/30 ML PO PRN (16:31)
[2024-08-13] MEDS ORDERED: NALOXONE (NARCAN) HCL 4 MG/0.1 ML SPRAY NS PRN (16:31)
[2024-08-13] MEDS ORDERED: MAG HYDROX/AL HYDROX/SIMETH 30 ML UNIT-DOSE CUP PO PRN (16:31)
[2024-08-13] MEDS ORDERED: MAGNESIUM HYDROX 2400MG/30ML ORAL SUSPENSION 30 ML CUP PO PRN (16:31)
[2024-08-13] MEDS ORDERED: ONDANSETRON *ODT* 4 MG TABLET SL PRN (16:31)
[2024-08-13] MEDS ORDERED: BENZONATATE 200 MG CAPSULE PO PRN (16:31)
[2024-08-13] MEDS ORDERED: BENZOCAINE/MENTHOL (CHLORASEPTIC ) LOZENGE MM PRN (16:31)
[2024-08-13] MEDS ORDERED: LOPERAMIDE HCL 2 MG CAPSULE PO PRN (16:31)
[2024-08-13] MEDS ORDERED: IBUPROFEN 400 MG TABLET (FP) PO PRN (16:31)
[2024-08-13] MEDS ORDERED: POLYETHYLENE GLYCOL (HEALTHYLAX) 3350 17 GM PACKET PO PRN (16:31)
[2024-08-13] MEDS ORDERED: NICOTINE POLACRILEX 2 MG GUM BUC PRN (16:31)
[2024-08-13] MEDS ORDERED: NICOTINE POLACRILEX 2 MG LOZENGE BC PRN (16:31)
[2024-08-13] MEDS: IBUPROFEN 600 MG TABLET (FP) PO PRN (19:57)
[2024-08-13] MEDS: MELATONIN 5 MG TABLETS PO SCH (22:27)
[2024-08-13] MEDS: THIAMINE 100 MG TABLET PO SCH (22:28)
[2024-08-14] MEDS ORDERED: LORazepam 1 MG TABLET PO PRN (08:00)
[2024-08-14] MEDS: PRENATAL VITAMINS W/ FOLIC ACID TABLET (FP) PO SCH (10:36)
[2024-08-14] MEDS: LORazepam 2 MG TABLET PO SCH (10:38)
[2024-08-14 11:22] LABS: HEMATOCRIT 36.5 % (35.4-49); HEMOGLOBIN 12.3 GM/dL (11.7-16.9); MCH 27.1 pg (25.7-33.7); MCHC 33.8 g/dl (32.0-35.9); MEAN CELL VOLUME 80.3 fl (80-96); MEAN PLT VOLUME 7.8 fl (7.5-11.1); PLATELET COUNT 349 10^3/uL (134-434); RBC 4.54 M/mm3 (4.00-5.60); RDW 14.6 % (11.9-15.9); WHITE BLOOD COUNT 4.1 K/mm3 (4.0-10.0)
[2024-08-14 12:23] LABS: CHLORIDE 105 mmol/L (98-107); SODIUM 138 mmol/L (136-145)
[2024-08-14 12:31] LABS: ALBUMIN 3.4 g/dl (3.4-5.0); ANION GAP 8 mmol/L (4-13); BLOOD UREA NITROGEN 32.3 mg/dL (7-18); CO2 25 mmol/L (21-32)
[2024-08-14 12:32] LABS: GLUCOSE,RANDOM 101 mg/dL (74-106)
[2024-08-14 12:33] LABS: SGOT/AST 35 U/L (15-37); SGPT/ALT 34 U/L (13-61)
[2024-08-14 12:34] LABS: BILIRUBIN,TOTAL 0.5 mg/dL (0.2-1); CALCIUM 8.6 mg/dL (8.5-10.1); CREATININE 1.3 mg/dL (0.55-1.3); TOT PROT 6.4 g/dl (6.4-8.2)
[2024-08-14 15:15] LABS: ALK PHOS 96 U/L (45-117)
[2024-08-14] MEDS: ACETAMINOPHEN 325 MG TABLET (FP) PO PRN (17:16)
[2024-08-14] MEDS: MIRTAZAPINE 15 MG TABLET (FP) PO SCH (22:08)
[2024-08-15] MEDS: LOSARTAN POTASSIUM 25 MG TABLET PO SCH (11:10)
[2024-08-16] MEDS: LORazepam 1 MG TABLET PO SCH (05:59)
[2024-08-16] MEDS: hydrOXYzine PAMOATE 25 MG CAPSULE (FP) PO PRN (22:20)
[2024-08-17] MEDS ORDERED: LORazepam 0.5 MG TABLET PO PRN
[2024-08-17] MEDS: LORazepam 0.5 MG TABLET PO SCH (05:52)
[2024-08-17] MEDS: LOSARTAN POTASSIUM 50 MG TABLET PO SCH (10:19)
[2024-08-17] MEDS: NALTREXONE HCL 50 MG TABLET PO ONE (12:20)
[2024-08-17 17:06] LABS: POTASSIUM 4.5 mmol/L (3.5-5.1)
[2024-08-17 17:07] LABS: ALBUMIN 3.7 g/dl (3.4-5.0); BLOOD UREA NITROGEN 19.5 mg/dL (7-18)
[2024-08-17 17:08] LABS: CALCIUM 9.7 mg/dL (8.5-10.1)
[2024-08-17 17:10] LABS: CREATININE 1.4 mg/dL (0.55-1.3); PHOSPHOROUS 3.3 mg/dL (2.5-4.9)
[2024-08-17] MEDS: METHOCARBAMOL 500 MG TABLET PO PRN (17:17)
[2024-08-17] MEDS: cloNIDine HCL 0.1 MG TABLET PO ONE (22:57)
[2024-08-18] MEDS: LORazepam 0.5 MG TABLET PO ONE (05:48)
[2024-08-18 09:42] VITALS: BP 135/100; PULSE 90; RESP 18; TEMP 97.5
[2024-08-18] MEDS: NALTREXONE HCL 50 MG TABLET PO SCH (10:30)
[2024-08-18] MEDS: LOSARTAN POTASSIUM 50 MG TABLET PO SCH (10:35)
== END 2024-08-18 10:40 | disposition home or self-care (01) | DRG 897 ==
LOC: YASAS 14:38 → Y6N 16:59
PROVIDERS: ADMIT Allergy & Immunology; ATTEND Allergy & Immunology
PROC: HZ2ZZZZ Detoxification Services for Substance Abuse Treatment (ICD-10-PCS; principal; 2024-08-13)
DX: F10.230 Alcohol dependence with withdrawal, uncomplicated (principal); F14.20 Cocaine dependence, uncomplicated; F19.282 Other psychoactive substance dependence with psychoactive substance-induced sleep disorder; F19.24 Other psychoactive substance dependence with psychoactive substance-induced mood disorder; F12.20 Cannabis dependence, uncomplicated; F17.210 Nicotine dependence, cigarettes, uncomplicated; E78.5 Hyperlipidemia, unspecified; I10 Essential (primary) hypertension; J45.909 Unspecified asthma, uncomplicated; M17.0 Bilateral primary osteoarthritis of knee
CPT/HCPCS: 36415; 80053; 80069; 80305; 80307; 85027; 86780